=== PATIENT | male | born 1960 | race Caucasian/White ===

== ENCOUNTER 2022-07-04 16:46 | Inpatient (IN) | payer MEDICARE, SELFPAY ==
[2022-07-04] VITALS (21 sets, daily range): BP systolic 108–139; BP diastolic 59–76; PULSE 84–99; RESP 16–27; TEMP 36.3–36.7; O2SAT 95–99; BMI 26.8
--- NOTE | ~2022-07-04 | CT_ITS ---
EXAMINATION: CT diagnostic chest wo con DATE: 07/05/2022 08:30 INDICATION: Pleural effusion, history of lung cancer TECHNIQUE: Computed tomography (CT) of the chest was performed without intravenous contrast. The dose -length product (DLP) was 319.38 mGy-cm. Automated exposure control and iterative reconstruction tech nique were employed. COMPARISON: None FINDINGS: The right upper lobe bronchus is obstructed with resulting right upper lobe collapse. There is a moderate size loculated right pleural effusion. There are diffuse airspace opacities throughout the right middle and lower lobes. There is a small left pleural effusion. No pneumothorax is identif ied. There are small nodules and patchy airspace opacities of the left lower lobe, some of which demo nstrate central cavitation. The heart size is normal. No definite thoracic lymphadenopathy is identif ied however evaluation is limited by the absence of intravenous contrast. There are partially imaged changes of anterior fusion in the cervical spine and posterior fusion in the lumbar spine. Stones are present in the nondistended gallbladder. There is a nonobstructing stone of the right kidney. IMPRESSION: 1. Obstructed right upper lobe bronchus with right upper lobe collapse of unclear etiology, mass vers us mucous plugging. 2. Moderate-sized loculated right pleural effusion. 3. Diffuse airspace opacities throughout the right middle and lower lobes and patchy nodular and airs pace opacities in the left lower lobe, likely infection. 3. Cholelithiasis without evidence of cholecystitis. Reviewed, dictated and finalized at location B. L WORKER IMPRESSION: 1. Obstructed right upper lobe bronchus with right upper lobe collapse of uncle ar etiology, mass versus mucous plugging. 2. Moderate-sized loculated right pleural effusion. 3. Diffuse airspace opacities throughout the right middle and lower lobes and p atchy nodular and airspace opacities in the left lower lobe, likely infection. 3. Cholelithiasis without evidence of cholecystitis.
--- NOTE | ~2022-07-04 | US_ITS ---
EXAMINATION: US thoracentesis DATE: 07/05/2022 14:42 INDICATION: pleural effusion TECHNIQUE: The procedure and its risks, benefits, and alternatives were discussed with the patient. P otential risks discussed included bleeding, infection, and pneumothorax. The patient understood the r isks and agreed to proceed. The skin was prepped and draped in sterile fashion. 1% lidocaine was used for local anesthesia. Under ultrasound guidance, a 5 Fr catheter with trochar was advanced into the right pleural effusion. Fluid was aspirated. The catheter was removed, and a dressing was applied. Th ere were no immediate complications. FINDINGS: Ultrasound images demonstrate a right pleural effusion and the catheter within the fluid. IMPRESSION: 1. Successful ultrasound-guided thoracentesis yielding 900 mL of turbid, almazan fluid. Reviewed, dictated and finalized at location A. RINE OPERATOR IMPRESSION: 1. Successful ultrasound-guided thoracentesis yielding 900 mL of turbid, almazan f luid.
--- NOTE | ~2022-07-04 | XR_ITS ---
EXAMINATION: XR chest 1V portable DATE: 07/04/2022 17:39 INDICATION: Shortness of breath and cough and prior lung cancer. TECHNIQUE: frontal view of the chest was obtained. COMPARISON: None FINDINGS: There some volume loss in the right hemithorax with rightward deviation of the heart and trachea. Pat deysi airspace opacities in the right midlung zone with more dense opacities in the right lower lung zo ne and overlying the apex suggesting a small to moderate-sized right pleural effusion with associated atelectasis. The more patchy airspace opacities could represent pneumonia or less likely asymmetric pulmonary edema. Left lung remains clear with no airspace opacities, pulmonary edema or pleural effus ion. No pneumothorax. The heart size is likely normal although portions of the right heart border obs cured. Partially visualized plate and screw fixation for lower cervical anterior spinal fusion. IMPRESSION: 1. Opacities throughout the right lung consistent with small to moderate-sized right pleural effusion and associated atelectasis. Underlying recurrent malignancy cannot be excluded. 2. Patchy airspace opacities in the right midlung zone which could represent pneumonia or less likely asymmetric pulmonary edema. Reviewed, dictated and finalized at location A. N RESOURCES TRAINEE IMPRESSION: 1. Opacities throughout the right lung consistent with small to moderate-sized right pleural effusion and associated atelectasis. Underlying recurrent maligna ncy cannot be excluded. 2. Patchy airspace opacities in the right midlung zone which could represent pn eumonia or less likely asymmetric pulmonary edema.
--- NOTE | ~2022-07-04 | XR_ITS ---
EXAMINATION: [id number]_[id number]_CR DATE: 07/05/2022 14:36 INDICATION: Right pleural effusion status post thoracentesis. TECHNIQUE: Frontal and lateral views of the chest were obtained. COMPARISON: Chest single view 07/04/2022, chest CT 07/05/2022 FINDINGS: There is a small loculated right pleural effusion. There is a small left pleural effusion. There is a mass in right lung apex. There are airspace opacities in all right lung zones with a perih ilar predominance. No pneumothorax. There is rightward shift of mediastinum. The heart size is normal . There are changes of anterior fusion procedure in cervical spine. There are changes of posterior fu justyn procedure in lumbar spine. IMPRESSION: 1. Small loculated right pleural effusion with improvement status post thoracentesis. 2. Diffuse right lung disease with right lung volume loss, likely a combination of malignancy, pneumo bonita, and atelectasis. 3. Small left pleural effusion. Reviewed, dictated and finalized at location A. OR LINUX ADMINISTRATOR IMPRESSION: 1. Small loculated right pleural effusion with improvement status post thoracen tesis. 2. Diffuse right lung disease with right lung volume loss, likely a combination of malignancy, pneumonia, and atelectasis. 3. Small left pleural effusion.
--- NOTE | 2022-07-04 17:19 | ECG_ITS ---
Measurements Intervals [place] Rate: 91 P: 45 NE: 175 QRS: 25 QRSD: 104 T: 54 QT: 375 QTc: 462 Interpretive Statements SINUS RHYTHM NONSPECIFIC ST SEGMENT ABNORMALITY ABNORMAL ECG NO PREVIOUS ECG AVAILABLE FOR COMPARISON Electronically Signed On 07-05-2022 13:03:28 AVIONICS TEST TECHNICIAN by Jhon White M.D.
[2022-07-04] MEDS: methylPREDNISolone SOD SUCC 125 MG VIAL IV PUSH (17:32)
[2022-07-04 17:33] LABS: Basophils Absolute Auto 0.1 K/mm3 (0.0-0.1); Basophils Percent Auto 0.8 % (0.2-1.2); Eosinophils Absolute Auto 0.1 K/mm3 (0-0.3); Eosinophils Percent Auto 0.7 % (0-4.4); Hematocrit 35.2 % (42.0-52.0); Hemoglobin 11.6 g/dL (14.0-18.0); Immature Granulocyte Absolute 0.01 K/mm3 (0.00-0.031); Immature Granulocyte Percent A 0.1 % (0-0.5); Lymphocytes Absolute Auto 0.15 K/mm3 (0.9-3.2); Lymphocytes Percent Auto 1.6 % (18.3-44.2); Mean Corpuscular Hemoglobin 24.5 pg (26-34); Mean Corpuscular Volume 74.3 fl (80-100); Mean Platelet Volume 9.7 fl (7.4-10.4); Monocytes Absolute Auto 0.7 K/mm3 (0.1-0.6); Neutrophils Absolute Auto 8.3 K/mm3 (1.3-6.7); Neutrophils Percent Auto 89.8 % (45.5-73.1); Platelet Count Result 222 k/mm3 (150-375); Red Blood Count 4.74 M/mm3 (4.6-6.20); Red Cell Distribution Width 15.5 % (11.5-14.5); White Blood Count 9.2 K/mm3 (4.5-10.0)
[2022-07-04] MEDS: ALBUTEROL SULFATE NEB 2.5 MG/3 ML INH INHALATION ×2 (17:37→20:55)
[2022-07-04] MEDS: IPRATROPIUM BR 0.02% INH SOLN 0.5 MG/2.5 ML VIAL INHALATION ×2 (17:37→20:55)
[2022-07-04 17:46] LABS: Alanine Aminotransferase 70 U/L (6-50); Albumin Level 3.6 g/dL (3.5-5.1); Alkaline Phosphatase 70 U/L (38-126); Anion Gap 14 mmol/L (8-16); Aspartate Amino Transferase 114 U/L (17-59); Bilirubin,Total 1.1 mg/dL (0.2-1.3); Blood Urea Nitrogen 56 mg/dL (9-20); Calcium 7.5 mg/dL (8.4-10.2); Carbon Dioxide 22 mmol/L (22-30); Chloride 89 mmol/L (98-107); Estimated CRCL calculation 34 ml/min; Estimated Glomerular Filt Rate 32; Glucose 52 mg/dL (65-110); Potassium 3.2 mmol/L (3.4-5.0); Sodium 125 mmol/L (137-145)
--- NOTE | 2022-07-04 17:48 | ED.SOB ---
HPI - SOB/Dyspnea General Chief Complaint: Shortness of Breath/Dyspnea Stated Complaint: Shortness of breath, COVID exposure Time Seen by Provider: 07/04/22 17:04 Source: RN notes reviewed History of Present Illness HPI Narrative: Patient presents emergency department from home for shortness of breath. Patient states he been feeling short of breath for the past 4 days but it worsened today. He states that has been associate with the cough has been nonproductive she states shortness of breath is worse with ambulation. He states that his was just diagnosed with COVID today he denies having fevers or chills denies any chest pain abdominal pain nausea vomiting diarrhea. States he has a history of lung cancer that was treated at [facility] with radiation and chemotherapy but is in remission and no longer receiving any treatments Related Data Allergies Allergy/AdvReac Type Severity Reaction Status Date / Time No Known Allergies Allergy Verified 07/04/22 17:10 Review of Systems Review of Systems: Gen.: Denies fevers or chills ENT: Denies congestion Respiratory: See HPI CV: Denies chest pain or palpitations GI: Denies abdominal pain nausea, emesis or diarrhea Musculoskeletal: Denies back pain or muscle pain Neuro: Denies numbness, tingling, weakness or focal weakness Skin: Denies rash Except as documented, all other systems reviewed and negative [facility] Past Medical History Medical History (Updated 07/04/22 @ 19:47 by Nestor Damico DO) Lung cancer Social History Social History (Updated 07/04/22 @ 17:49 by Nestor Damico DO) Smoking status: Former smoker Exam Narrative: APPEARANCE: Moderate respiratory distress, nontoxic, resting in bed EYES: EOMI HEENT: Normocephalic, atraumatic, OMM RESPIRATORY: Moderate respiratory stress,, sitting upright speaking in short sentences decreased breath sounds throughout the bilateral lung hay worse on the right than the left CARDIOVASCULAR: Regular rate and rhythm without murmurs rubs or gallops. ABDOMINAL: Soft, nontender, nondistended, no rebound or guarding MUSCULOSKELETAl: Moves all extremities. No clubbing, cyanosis or edema. NEURO: Awake and alert. Following commands, speech normal, no focal deficits SKIN:: Warm, dry. No rashes lesions or abrasions PSYCHIATRIC: Normal affect/mood, Course Course Emergency Course: Further discussions with the patient's shows that his treatment for lung cancer was on the right side back in 2015 at [facility] he has been in remission since that time and only follows with his PCP Dr. Casillas. He states he does not have a known history of renal insufficiency Called and discussed with Dr. velasquez for radiology chest x-ray discussed possible CT scan tonight he recommends the patient have a thoracentesis to decrease size of pleural effusion with CT following tomorrow Discussed with [facility] for Dr. Dinero for hospitalist service agrees with admission with patient starting Rocephin and Zithromax Discussed with patient and family results of workup and diagnosis. Discussed need for admission. Patient and family understand and agree to current treatment plan patient states he did start a Z-Kurt 2 days ago Discussed with pharmacist Lino patient's current Z-Kurt he took a Z-Kurt dose this morning per pharmacy the patient can have IV azithromycin this evening Vital Signs Vital signs: Vital Signs Temperature 98.1 F 07/04/22 16:57 Pulse Rate 95 07/04/22 16:57 Respiratory Rate 26 H 07/04/22 16:57 Blood Pressure 121/76 07/04/22 16:57 Pulse Oximetry 96 07/04/22 16:57 Oxygen Delivery Nasal Cannula 07/04/22 16:57 Oxygen Flow Rate 4 07/04/22 16:57 Temperature 98.1 F 07/04/22 16:57 Pulse Rate 89 07/04/22 18:15 Respiratory Rate 16 07/04/22 18:15 Blood Pressure 139/76 07/04/22 18:06 Pulse Oximetry 96 07/04/22 18:15 Oxygen Delivery Nasal Cannula 07/04/22 16:57 Oxygen Flow Rate 4 07/04/22 16:57
[2022-07-04 18:02] LABS: Glucose Point of Care 56 mg/dl (65-105)
[2022-07-04] MEDS: SODIUM CHLORIDE 0.9% IV 1,000 ML 999 ML IV CONT (18:03)
[2022-07-04 18:14] LABS: Lactic Acid Reflex 2.1 mmol/L (0.7-2.0)
[2022-07-04] MEDS: POTASSIUM CHLORIDE 20 MEQ TABLET PO (18:21)
[2022-07-04 18:31] LABS: INR 1.2
[2022-07-04 18:32] LABS: Platelet Estimate Adequate (Adequate)
[2022-07-04 18:32] LABS: Partial Thromboplastin Time 32.4 SECONDS (22.3-36.8)
[2022-07-04 18:33] LABS: Burr Cells 2+ (NORMAL); Ovalocytes 1+ (NORMAL); Schistocytes None Seen (NORMAL)
[2022-07-04 18:39] LABS: Magnesium 1.2 mg/dL (1.6-2.3)
[2022-07-04 18:40] LABS: Influenza A QL RT-PCR Negative (Negative); Influenza B QL RT-PCR Negative (Negative); RSV RNA, RT-PCR Negative (Negative); SARS-CoV-2 RNA PCR Negative
[2022-07-04] MEDS: MAGNESIUM SULF 2 GM/WATER 50ML 2 GM/50 ML BAG IVPB (19:04)
[2022-07-04 19:35] LABS: Glucose Point of Care 171 mg/dl (65-105)
--- NOTE | 2022-07-04 20:56 | PM.IMHP ---
H&P: HPI History of Present Illness Date/Time: 07/04/22 20:56 Chief Complaint: Shortness of breath Narrative: This is a 61-year-old male with past medical history significant for hypertension, dyslipidemia, COPD/emphysema, lung CA, type 2 diabetes mellitus. Patient presents to the emergency room due to shortness of breath for the last 3-4 days worsening cough nonproductive of sputum, initially patient thought that he had COVID back tested negative for COVID tested positive for COVID, patient has been having low stamina, poor appetite, chills, fevers, night sweats, generalized malaise. Preliminary workup was significant for sodium of 125 magnesium 1.2 chloride 89 creatinine of 2.1 BUN 56 a chest x-ray was reported as: FINDINGS: There some volume loss in the right hemithorax with rightward deviation of the heart and trachea. Patchy airspace opacities in the right midlung zone with more dense opacities in the right lower lung zone and overlying the apex suggesting a small to moderate-sized right pleural effusion with associated atelectasis. The more patchy airspace opacities could represent pneumonia or less likely asymmetric pulmonary edema. Left lung remains clear with no airspace opacities, pulmonary edema or pleural effusion. No pneumothorax. The heart size is likely normal although portions of the right heart border obscured. Partially visualized plate and screw fixation for lower cervical anterior spinal fusion. IMPRESSION: 1. Opacities throughout the right lung consistent with small to moderate-sized right pleural effusion and associated atelectasis. Underlying recurrent malignancy cannot be excluded. 2. Patchy airspace opacities in the right midlung zone which could represent pneumonia or less likely asymmetric pulmonary edema. Review of Systems Review of Systems: Shortness of breath, chills, night sweats, poor appetite, decreased stamina, generalized malaise. Constitutional: Constitutional: Reports chills, Reports fatigue, Reports fever(s), Reports lethargy, Reports malaise, Reports night sweats, Reports poor appetite and Reports weakness Eyes: Eyes: Denies change in vision ENT: Denies dysphagia and Denies odynophagia Cardiovascular: Cardiovascular: Denies chest pain, Denies leg edema, Denies lightheadedness and Denies palpitations Respiratory: Respiratory: Denies change in phlegm color, Reports cough, Denies hemoptysis, Denies excessive phlegm production, Denies pain on inspiration, Reports dyspnea and Reports dyspnea on exertion Gastrointestinal: Gastrointestinal: Denies abdominal pain, Denies dyspepsia, Denies heartburn, Denies diarrhea, Denies nausea and Denies vomiting Genitourinary: Genitourinary: Denies dysuria Musculoskeletal: Musculoskeletal: Denies back pain, Reports myalgias, Denies joint swelling and Reports muscle weakness Integumentary/Breasts: Skin/Breast: Denies rash Neurologic: Denies vertigo, Denies dizziness, Denies focal weakness and Denies Sensory deficit (Neuro) Psychiatric: Psychiatric: Reports no additional psychiatric complaints and Reports as per HPI Endocrine: Endocrine: Denies cold intolerance, Denies flushing, Denies heat intolerance, Denies polyphagia, Denies polydipsia and Denies palpitations Hematologic/Lymphatic: Hematologic/Lymphatic: Reports no additional hematologic/lymphatic complaints and Reports as per HPI Allergic/Immunologic: Allergic/Immunologic: Reports no additional allergic/immunologic complaints and Reports as per HPI PMFSH Past Medical History Medical History (Updated 07/04/22 @ 19:47 by Nestor Damico DO) Lung cancer Family History Family History (Updated 07/04/22 @ 22:13 by Mary Rivera RN) Mother Diabetes mellitus Sibling ETOH abuse Social History Social History (Updated 07/04/22 @ 17:49 by Nestor Damico DO) Smoking packs per day: 1.5 Smoking cigarettes per day: 30.0 Years smoked: 25 Smoking pack-years: 37.50 Smoking status: Form
[2022-07-04 21:01] LABS: Reflex Lactic Acid Yes or No Add Lactic
--- NOTE | 2022-07-04 21:56 | ADMGEN ---
This patient, Mraco Antonio Payne, was admitted to IMU Room 213- [id number]. Patient/family oriented to hospital policies and general routines including ID bracelet, bed and alarms, visiting hours, pain management, procedures, bathroom and other care routines, personal items, smoking policy, room service/diet, and visiting hours. Information on how to activate the Rapid Response Team has been discussed. Patient/Family are encouraged to report perceived risks to care and to ask questions if they do not understand what they are told or what they should do.
[2022-07-04 22:10] LABS: Glucose Point of Care 181 mg/dl (65-105)
[2022-07-04] MEDS: SODIUM CHLORIDE 0.9% IV 1,000 ML 80 ML IV CONT (22:16)
--- NOTE | 2022-07-04 22:20 | ADMGEN ---
This patient, Marco Antonio Payne, was admitted to IMU Room 213-01 on 07/04/2022 at 2155. Patient/family oriented to hospital policies and general routines including ID bracelet, bed and alarms, visiting hours, pain management, procedures, bathroom and other care routines, personal items, smoking policy, room service/diet, and visiting hours. Information on how to activate the Rapid Response Team has been discussed. Patient/Family are encouraged to report perceived risks to care and to ask questions if they do not understand what they are told or what they should do.
[2022-07-04 22:40] LABS: Lactic Acid 2.2 mmol/L (0.7-2.0)
[2022-07-04 23:45] LABS: Appearance Urine Slightly Cloudy (Clear); Bilirubin Urine Negative (Negative); Blood Urine 2+ (Negative); Color Urine Yellow (Yellow); Glucose Urine UA Negative (Negative); Ketones Urine Negative (Negative); Leukocyte Esterase Ur Negative LEU/UL (Negative); Nitrate Urine Negative (Negative); Protein Urine 2+ mg/dL (Negative); Specific Grav Ur 1.025 (1.001-1.035); Urobilinogen Urine 0.2 mg/dL (<2.0); pH Urine 5.5 (5.0-9.0)
[2022-07-05] VITALS (29 sets, daily range): BP systolic 109–148; BP diastolic 58–79; PULSE 77–104; RESP 16–20; TEMP 35.6–36.4; O2SAT 92–97
[2022-07-05 00:02] LABS: Mucus Urine Rare /lpf
[2022-07-05 00:28] LABS: Add Urine Microscopic? YES
[2022-07-05] MEDS: MELATONIN 5 MG TABLET PO ×2 (01:27→22:03)
[2022-07-05] MEDS: IPRATROPIUM BR 0.02% INH SOLN 0.5 MG/2.5 ML VIAL INHALATION ×4 (02:25→20:40)
[2022-07-05] MEDS: ALBUTEROL SULFATE NEB 2.5 MG/3 ML INH INHALATION ×4 (02:25→20:40)
[2022-07-05 04:51] LABS: Hematocrit 32.4 % (42.0-52.0); Hemoglobin 10.9 g/dL (14.0-18.0); Mean Corpuscular HGB Conc 33.6 g/dl (32-36); Mean Corpuscular Hemoglobin 24.8 pg (26-34); Mean Corpuscular Volume 73.8 fl (80-100); Mean Platelet Volume 9.9 fl (7.4-10.4); Platelet Count Result 189 k/mm3 (150-375); Red Blood Count 4.39 M/mm3 (4.6-6.20); Red Cell Distribution Width 15.4 % (11.5-14.5); White Blood Count 9.8 K/mm3 (4.5-10.0)
[2022-07-05 05:05] LABS: Alanine Aminotransferase 154 U/L (6-50); Alkaline Phosphatase 65 U/L (38-126); Anion Gap 9 mmol/L (8-16); Aspartate Amino Transferase 155 U/L (17-59); Bilirubin,Total 0.8 mg/dL (0.2-1.3); Blood Urea Nitrogen 55 mg/dL (9-20); Carbon Dioxide 22 mmol/L (22-30); Chloride 91 mmol/L (98-107); Estimated CRCL calculation 40 ml/min; Estimated Glomerular Filt Rate 38; Glucose 120 mg/dL (65-110); Potassium 3.1 mmol/L (3.4-5.0); Sodium 122 mmol/L (137-145)
[2022-07-05 05:52] LABS: Band Neutrophils Percent 42 % (0-6); Burr Cells 2+ (NORMAL); Crenated RBC 3+ (NORMAL); Eosinophils Absolute Manual 0.19 K/mm3 (0.02-0.5); Eosinophils Percent Manual 2 % (0-4); Lymphocytes Absolute Manual 0.29 K/mm3 (1.1-4.5); Macrocytosis 1+ (NORMAL); Monocytes Absolute Manual 0.58 K/mm3 (0.1-0.90); Monocytes Percent Manual 6 % (3-9); Myelocytes Percent 1 %; Neutrophils Absolute Manual 8.62 K/mm3 (1.3-6.7); Neutrophils Percent Manual 46 % (46-73); Platelet Estimate Adequate (Adequate); Schistocytes 1+ (NORMAL); Smudge Cells PRESENT; Total Cells Counted 100
[2022-07-05] MEDS: ASPIRIN 81 MG CHEWABLE TABLET PO (09:04)
[2022-07-05] MEDS: amLODIPine BESYLATE 5 MG TABLET PO ×2 (09:05→17:19)
[2022-07-05] MEDS: carvediloL 25 MG TABLET PO ×2 (09:05→22:02)
[2022-07-05] MEDS: guaiFENesin 12 HR 600 MG TABCR 1200 MG PO ×2 (09:05→22:03)
[2022-07-05] MEDS: cloNIDine HCL 0.2 MG TABLET PO ×2 (09:05→17:19)
[2022-07-05] MEDS: ATORVASTATIN 40 MG TABLET PO (09:05)
[2022-07-05] MEDS: OPTI-GEN TAB 1 TABLET PO (09:06)
[2022-07-05] MEDS: PANTOPRAZOLE 40 MG TABLET PO (09:06)
[2022-07-05] MEDS: FLUTICASONE/UMECLIDIN/VILANTER 100-62.5-25 MCG ELLIPTA 1 PUFF INHALATION (09:55)
--- NOTE | 2022-07-05 10:34 | PM.IMPN ---
Progress Note: A&P Assessment and Plan (1) Acute respiratory failure with hypoxia: Code(s): J96.01 - Acute respiratory failure with hypoxia Status: Acute Assessment and Plan: Likely secondary to postobstructive pneumonia versus empyema Thoracentesis performed today, organisms found in the Gram stain Empyema noted Transfer pending to [facility] versus U (2) Community acquired pneumonia: Code(s): J18.9 - Pneumonia, unspecified organism Status: Acute Assessment and Plan: Will broaden antibiotics to vancomycin, Zosyn and in light of Gram stain findings from the thoracentesis today (3) Pleural effusion on right: Code(s): J90 - Pleural effusion, not elsewhere classified Status: Acute Assessment and Plan: Follow-up pleural fluid analysis from thoracentesis today, suspect empyema, see above (4) Lung cancer: Code(s): C34.90 - Malignant neoplasm of unspecified part of unspecified bronchus or lung Status: Acute Assessment and Plan: Status post radiation and chemotherapy according to history (5) Acute hyponatremia: Code(s): E87.1 - Hypo-osmolality and hyponatremia Status: Acute Assessment and Plan: Worsening, consider consult to nephrology d/c IVF and monitor Plan DVT prophylaxis with lovenox GI prophylaxis not indicated Code status full code Subjective Date/time seen: 07/05/22 10:34 Interval history: No overnight events noted. No chest pain. No nausea, vomiting or diarrhea. No fevers or chills. States his shortness of breath is much improved. Review of Systems Review of Systems: 12 point review of systems was assessed and was negative except as noted in the HPI Exam Narrative: General: No acute distress, alert and oriented per baseline, stable on 3 L nasal cannula HEENT: Atraumatic, normocephalic, mucous membranes moist CV: Regular rate and rhythm, S1, S2 Lungs: No air movement noted on right upper and middle lobes, scattered rhonchi on left lower lobe, clear breath sounds left upper lobe Abdomen: Soft, nontender, nondistended Extremities: Normal to inspection Skin: No rashes noted, no lesions or wounds seen Psych: Euthymic, normal affect Objective Data Vital Signs Vital Signs: Vital Signs - 24 hr 07/04/22 16:57 07/04/22 17:20 07/04/22 18:04 Temperature 98.1 F Pulse Rate 95 99 88 Respiratory Rate 26 H 23 H Blood Pressure 121/76 Pulse Oximetry 96 Oxygen Delivery Nasal Cannula Oxygen Flow Rate 4 07/04/22 17:44 07/04/22 17:55 07/04/22 18:06 Temperature Pulse Rate 94 94 95 Respiratory Rate 21 H 21 H 23 H Blood Pressure 108/64 139/76 Pulse Oximetry 95 95 95 Oxygen Delivery Oxygen Flow Rate 07/04/22 18:15 07/04/22 20:50 07/04/22 20:50 Temperature Pulse Rate 89 91 91 Respiratory Rate 16 24 H Blood Pressure Pulse Oximetry 96 95 Oxygen Delivery Nasal Cannula Oxygen Flow Rate 4 07/04/22 20:58 07/04/22 18:30 07/04/22 18:45 Temperature Pulse Rate 90 95 91 Respiratory Rate 21 H 22 H 18 Blood Pressure Pulse Oximetry 98 98 Oxygen Delivery Oxygen Flow Rate 07/04/22 19:08 07/04/22 19:16 07/04/22 19:30 Temperature Pulse Rate 94 92 90 Respiratory Rate 26 H 21 H 18 Blood Pressure Pulse Oximetry 98 99 96 Oxygen Delivery Oxygen Flow Rate 07/04/22 19:46 07/04/22 20:02 07/04/22 20:24 Temperature Pulse Rate 95 93 87 Respiratory Rate 23 H 23 H 17 Blood Pressure Pulse Oximetry 96 95 Oxygen Delivery Oxygen Flow Rate 07/04/22 20:31 07/04/22 20:52 07/04/22 21:05 Temperature Pulse Rate 84 92 94 Respiratory Rate 17 27 H 20 Blood Pressure 109/59 L Pulse Oximetry 96 95 97 Oxygen Delivery Oxygen Flow Rate 07/04/22 21:55 07/05/22 00:00 07/05/22 00:00 Temperature 97.3 F L Pulse Rate 97 89 Respiratory Rate 20 Blood Pressure 130/72 109/66 Pulse Oximetry 96 Oxygen Delivery Oxygen Flow
[2022-07-05] MEDS: SODIUM CHLORIDE 0.9% IV 1,000 ML 80 ML IV CONT (11:55)
--- NOTE | 2022-07-05 15:18 | PC.NURSE ---
Daughter, Libia, called for an update. She was updated on patient current condition and planfor today thus far. All questions answered.
[2022-07-05 17:08] LABS: Pleural fluid source Pleural fluid
[2022-07-05 17:14] LABS: Appearance Pleural Fluid Cloudy (Clear); Color Pleural Fluid Yellow (Colorless)
[2022-07-05 17:15] LABS: Lymphocytes Pleural Fluid 90 %; Monocytes Pleural Fluid 6 %; Neutrophils Pleural Fluid 4 % (0-25)
[2022-07-05] MEDS: POTASSIUM CHLORIDE 20 MEQ TABLET 40 MEQ PO (17:19)
[2022-07-06] VITALS (17 sets, daily range): BP systolic 139–165; BP diastolic 73–88; PULSE 62–110; RESP 18–22; TEMP 36.3–36.7; O2SAT 94–98
[2022-07-06 04:59] LABS: Eosinophils Percent Auto 0.1 % (0-4.4); Hematocrit 34.9 % (42.0-52.0); Immature Granulocyte Percent A 0.5 % (0-0.5); Lymphocytes Percent Auto 2.1 % (18.3-44.2); Mean Corpuscular HGB Conc 34.4 g/dl (32-36); Mean Corpuscular Hemoglobin 25.3 pg (26-34); Mean Corpuscular Volume 73.6 fl (80-100); Mean Platelet Volume 9.6 fl (7.4-10.4); Monocytes Absolute Auto 1.3 K/mm3 (0.1-0.6); Monocytes Percent Auto 6.7 % (2.6-8.5); Neutrophils Absolute Auto 17.5 K/mm3 (1.3-6.7); Neutrophils Percent Auto 90.6 % (45.5-73.1); Platelet Count Result 209 k/mm3 (150-375); Red Blood Count 4.74 M/mm3 (4.6-6.20); Red Cell Distribution Width 15.6 % (11.5-14.5); White Blood Count 19.3 K/mm3 (4.5-10.0)
[2022-07-06 05:48] LABS: Alanine Aminotransferase 130 U/L (6-50); Albumin Level 3.1 g/dL (3.5-5.1); Alkaline Phosphatase 84 U/L (38-126); Anion Gap 7 mmol/L (8-16); Aspartate Amino Transferase 65 U/L (17-59); Bilirubin,Total 0.8 mg/dL (0.2-1.3); Blood Urea Nitrogen 42 mg/dL (9-20); Calcium 7.5 mg/dL (8.4-10.2); Carbon Dioxide 24 mmol/L (22-30); Chloride 93 mmol/L (98-107); Estimated CRCL calculation 54 ml/min; Estimated Glomerular Filt Rate 56; Glucose 39 mg/dL (65-110); Magnesium 2.5 mg/dL (1.6-2.3); Sodium 124 mmol/L (137-145)
[2022-07-06 05:53] LABS: Glucose Point of Care 37 mg/dl (65-105)
[2022-07-06] MEDS: DEXTROSE 50% 25 GM/50 ML SYRINGE (06:00)
[2022-07-06 06:12] LABS: Glucose Point of Care 137 mg/dl (65-105)
[2022-07-06 06:49] LABS: Crenated RBC 3+ (NORMAL); Microcytosis 1+ (NORMAL); Platelet Estimate Adequate (Adequate); Schistocytes None Seen (NORMAL)
--- NOTE | 2022-07-06 08:48 | PM.IMPN ---
Progress Note: A&P Assessment and Plan (1) Acute respiratory failure with hypoxia: Code(s): J96.01 - Acute respiratory failure with hypoxia Status: Acute Assessment and Plan: Likely secondary to postobstructive pneumonia versus empyema Thoracentesis performed today, organisms found in the Gram stain Empyema noted Transfer pending to [facility], accepted by Dr. Waldron (2) Community acquired pneumonia: Code(s): J18.9 - Pneumonia, unspecified organism Status: Acute Assessment and Plan: Continue broad-spectrum antibiotics with vancomycin, Zosyn and in light of Gram stain findings, follow final results Leukocytosis worsened despite broadening of antibiotics, monitor (3) Pleural effusion on right: Code(s): J90 - Pleural effusion, not elsewhere classified Status: Acute Assessment and Plan: Follow-up pleural fluid analysis from thoracentesis, most likely empyema, see above (4) Lung cancer: Code(s): C34.90 - Malignant neoplasm of unspecified part of unspecified bronchus or lung Status: Acute Assessment and Plan: Status post radiation and chemotherapy according to history (5) Acute hyponatremia: Code(s): E87.1 - Hypo-osmolality and hyponatremia Status: Acute Assessment and Plan: Much improved off IV fluids, continue to monitor Plan DVT prophylaxis with lovenox GI prophylaxis not indicated Code status full code Subjective Date/time seen: 07/06/22 08:48 Interval history: No overnight events noted. No chest pain. No nausea, vomiting or diarrhea. No fevers or chills. Still with some short of breath, much better than yesterday. Review of Systems Review of Systems: 12 point review of systems was assessed and was negative except as noted in the HPI Exam Narrative: General: No acute distress, alert and oriented per baseline, stable on 3 L nasal cannula HEENT: Atraumatic, normocephalic, mucous membranes moist CV: Regular rate and rhythm, S1, S2 Lungs: No air movement noted on right upper and middle lobes, some crackles noted and right lower lobe, clear breath sounds left upper lobe, diminished breath sounds left lower lobe Abdomen: Soft, nontender, nondistended Extremities: Normal to inspection Skin: No rashes noted, no lesions or wounds seen Psych: Euthymic, normal affect Objective Data Vital Signs Vital Signs: Vital Signs - 24 hr 07/05/22 09:05 07/05/22 09:34 07/05/22 09:34 Temperature Pulse Rate 96 87 87 Respiratory Rate 20 Blood Pressure Pulse Oximetry 97 Oxygen Delivery Nasal Cannula Oxygen Flow Rate 3 07/05/22 12:02 07/05/22 10:00 07/05/22 12:00 Temperature 96.4 F L Pulse Rate 88 84 84 Respiratory Rate Blood Pressure 119/69 Pulse Oximetry 95 Oxygen Delivery Oxygen Flow Rate 07/05/22 12:00 07/05/22 14:00 07/05/22 16:13 Temperature 96.0 F L Pulse Rate 91 87 Respiratory Rate Blood Pressure 125/63 Pulse Oximetry 95 92 Oxygen Delivery Nasal Cannula Oxygen Flow Rate 3 07/05/22 09:51 07/05/22 14:49 07/05/22 15:09 Temperature Pulse Rate 85 91 93 Respiratory Rate 18 18 20 Blood Pressure Pulse Oximetry Oxygen Delivery Oxygen Flow Rate 07/05/22 16:00 07/05/22 16:00 07/05/22 18:00 Temperature Pulse Rate 79 80 Respiratory Rate Blood Pressure Pulse Oximetry 92 Oxygen Delivery Nasal Cannula Oxygen Flow Rate 2 07/05/22 20:24 07/05/22 20:40 07/05/22 21:13 Temperature 97.6 F Pulse Rate 87 93 93 Respiratory Rate 16 18 Blood Pressure 121/58 L Pulse Oximetry 92 95 Oxygen Delivery Nasal Cannula Oxygen Flow Rate 1 07/05/22 20:55 07/05/22 22:02 07/05/22 23:35 Temperature 97.5 F L Pulse Rate 87 86 77 Respiratory Rate 18 20 Blood Pressure 110/67 Pulse Oximetry 95 Oxygen Delivery Oxygen Flow Rate 07/05/22 23:37 07/05/22 20:00 07/06/22 00:00 Temperature Pulse Rate Respirat
[2022-07-06] MEDS: ALBUTEROL SULFATE NEB 2.5 MG/3 ML INH INHALATION (09:06)
[2022-07-06] MEDS: IPRATROPIUM BR 0.02% INH SOLN 0.5 MG/2.5 ML VIAL INHALATION ×2 (09:06→23:40)
[2022-07-06] MEDS: FLUTICASONE/UMECLIDIN/VILANTER 100-62.5-25 MCG ELLIPTA 1 PUFF INHALATION (09:07)
[2022-07-06] MEDS: amLODIPine BESYLATE 5 MG TABLET PO ×2 (09:18→18:38)
[2022-07-06] MEDS: ASPIRIN 81 MG CHEWABLE TABLET PO (09:18)
[2022-07-06] MEDS: carvediloL 25 MG TABLET PO ×2 (09:18→21:01)
[2022-07-06] MEDS: ATORVASTATIN 40 MG TABLET PO (09:18)
[2022-07-06] MEDS: guaiFENesin 12 HR 600 MG TABCR 1200 MG PO ×2 (09:19→21:00)
[2022-07-06] MEDS: PANTOPRAZOLE 40 MG TABLET PO (09:19)
[2022-07-06] MEDS: OPTI-GEN TAB 1 TABLET PO (09:19)
[2022-07-06] MEDS: cloNIDine HCL 0.2 MG TABLET PO ×2 (09:19→18:38)
[2022-07-06] MEDS: ENOXAPARIN 40 MG/0.4 ML SYRINGE SUB-Q (09:19)
[2022-07-06 11:36] LABS: Glucose Point of Care 124 mg/dl (65-105)
[2022-07-06] MEDS: POTASSIUM CHLORIDE 20 MEQ TABLET 40 MEQ PO (18:38)
[2022-07-06 19:19] LABS: Glucose Point of Care 49 mg/dl (65-105)
[2022-07-06] MEDS: GLUCOSE ORAL GEL 15 GM OF GLUCSE IN 37.5 GM TUBE (19:40)
[2022-07-06 20:11] LABS: Glucose Point of Care 74 mg/dl (65-105)
[2022-07-06 20:23] LABS: Glucose Point of Care 84 mg/dl (65-105)
[2022-07-06] MEDS: MELATONIN 5 MG TABLET PO (21:00)
[2022-07-06 23:28] LABS: Glucose Point of Care 62 mg/dl (65-105)
[2022-07-07] VITALS (20 sets, daily range): BP systolic 125–158; BP diastolic 61–81; PULSE 79–106; RESP 16–22; TEMP 36.3–36.7; O2SAT 94–98
[2022-07-07 00:21] LABS: Glucose Point of Care 133 mg/dl (65-105)
[2022-07-07 04:27] LABS: Basophils Percent Auto 0.2 % (0.2-1.2); Eosinophils Percent Auto 0.1 % (0-4.4); Hematocrit 32.7 % (42.0-52.0); Hemoglobin 11.1 g/dL (14.0-18.0); Immature Granulocyte Absolute 0.18 K/mm3 (0.00-0.031); Immature Granulocyte Percent A 1.2 % (0-0.5); Lymphocytes Absolute Auto 0.48 K/mm3 (0.9-3.2); Lymphocytes Percent Auto 3.3 % (18.3-44.2); Mean Corpuscular HGB Conc 33.9 g/dl (32-36); Mean Corpuscular Hemoglobin 24.8 pg (26-34); Mean Platelet Volume 9.9 fl (7.4-10.4); Monocytes Absolute Auto 1.6 K/mm3 (0.1-0.6); Monocytes Percent Auto 10.9 % (2.6-8.5); Neutrophils Absolute Auto 12.2 K/mm3 (1.3-6.7); Neutrophils Percent Auto 84.3 % (45.5-73.1); Platelet Count Result 194 k/mm3 (150-375); Red Blood Count 4.48 M/mm3 (4.6-6.20); White Blood Count 14.5 K/mm3 (4.5-10.0)
[2022-07-07 04:42] LABS: Alanine Aminotransferase 101 U/L (6-50); Albumin Level 2.9 g/dL (3.5-5.1); Alkaline Phosphatase 117 U/L (38-126); Anion Gap 5 mmol/L (8-16); Aspartate Amino Transferase 55 U/L (17-59); Bilirubin,Total 0.6 mg/dL (0.2-1.3); Blood Urea Nitrogen 37 mg/dL (9-20); Calcium 7.6 mg/dL (8.4-10.2); Carbon Dioxide 26 mmol/L (22-30); Chloride 93 mmol/L (98-107); Estimated CRCL calculation 70 ml/min; Estimated Glomerular Filt Rate > 60; Glucose 61 mg/dL (65-110); Magnesium 2.2 mg/dL (1.6-2.3); Potassium 3.5 mmol/L (3.4-5.0); Sodium 124 mmol/L (137-145)
[2022-07-07 04:56] LABS: Glucose Point of Care 162 mg/dl (65-105)
[2022-07-07 04:56] LABS: Glucose Point of Care 63 mg/dl (65-105)
[2022-07-07] MEDS: ALBUTEROL SULFATE (*SP) AEROSOL 1 PUFF 2 PUFF INHALATION (06:27)
[2022-07-07] MEDS: FLUTICASONE/UMECLIDIN/VILANTER 100-62.5-25 MCG ELLIPTA 1 PUFF INHALATION (06:39)
[2022-07-07 08:29] LABS: Glucose Point of Care 76 mg/dl (65-105)
[2022-07-07] MEDS: guaiFENesin 12 HR 600 MG TABCR 1200 MG PO ×2 (09:01→20:32)
[2022-07-07] MEDS: OPTI-GEN TAB 1 TABLET PO (09:01)
[2022-07-07] MEDS: ATORVASTATIN 40 MG TABLET PO (09:01)
[2022-07-07] MEDS: amLODIPine BESYLATE 5 MG TABLET PO ×2 (09:02→17:57)
[2022-07-07] MEDS: ASPIRIN 81 MG CHEWABLE TABLET PO (09:02)
[2022-07-07] MEDS: cloNIDine HCL 0.2 MG TABLET PO ×2 (09:02→17:57)
[2022-07-07] MEDS: PANTOPRAZOLE 40 MG TABLET PO (09:02)
[2022-07-07] MEDS: carvediloL 25 MG TABLET PO ×2 (09:02→20:32)
[2022-07-07] MEDS: ENOXAPARIN 40 MG/0.4 ML SYRINGE SUB-Q (09:02)
[2022-07-07] MEDS: DEXTROSE 10% 1,000 ML 75 ML IV CONT (09:04)
[2022-07-07] MEDS: IPRATROPIUM BR 0.02% INH SOLN 0.5 MG/2.5 ML VIAL INHALATION ×2 (09:22→22:06)
--- NOTE | 2022-07-07 11:12 | PM.IMPN ---
Progress Note: A&P Assessment and Plan (1) Acute respiratory failure with hypoxia: Code(s): J96.01 - Acute respiratory failure with hypoxia Status: Acute Assessment and Plan: Likely secondary to postobstructive pneumonia versus empyema Thoracentesis performed 07/05, organisms found in the Gram stain Empyema noted Transfer pending to [facility], accepted by Dr. Waldron, oncology (2) Community acquired pneumonia: Code(s): J18.9 - Pneumonia, unspecified organism Status: Acute Assessment and Plan: Continue broad-spectrum antibiotics with vancomycin, Zosyn and in light of Gram stain findings, follow final results Leukocytosis worsened despite broadening of antibiotics, monitor (3) Pleural effusion on right: Code(s): J90 - Pleural effusion, not elsewhere classified Status: Acute Assessment and Plan: Follow-up pleural fluid analysis from thoracentesis, still pending, most likely empyema, see above (4) Lung cancer: Code(s): C34.90 - Malignant neoplasm of unspecified part of unspecified bronchus or lung Status: Acute Assessment and Plan: Status post radiation and chemotherapy according to history (5) Acute hyponatremia: Code(s): E87.1 - Hypo-osmolality and hyponatremia Status: Acute Assessment and Plan: Much improved off IV fluids, continue to monitor Suspect SIADH, will initiate fluid restriction today and assess response (6) Hypoglycemia: Code(s): E16.2 - Hypoglycemia, unspecified Status: Acute Plan DVT prophylaxis with lovenox GI prophylaxis not indicated Code status full code Subjective Date/time seen: 07/07/22 11:12 Interval history: No overnight events noted. No chest pain. No nausea, vomiting or diarrhea. No fevers or chills. Patient states she feels much better than yesterday, still with an occasional cough. Review of Systems Review of Systems: 12 point review of systems was assessed and was negative except as noted in the HPI Exam Narrative: General: No acute distress, alert and oriented per baseline, stable on 3 L nasal cannula HEENT: Atraumatic, normocephalic, mucous membranes moist CV: Regular rate and rhythm, S1, S2 Lungs: No air movement noted on right upper and middle lobes, some crackles noted and right lower lobe, clear breath sounds left upper lobe, diminished breath sounds left lower lobe Abdomen: Soft, nontender, nondistended Extremities: Normal to inspection Skin: No rashes noted, no lesions or wounds seen Psych: Euthymic, normal affect Objective Data Vital Signs Vital Signs: Vital Signs - 24 hr 07/06/22 12:00 07/06/22 16:00 07/06/22 12:00 Temperature 97.5 F L 98.1 F Pulse Rate 87 80 77 Respiratory Rate 20 20 Blood Pressure 146/81 H 139/73 Pulse Oximetry 98 97 Oxygen Delivery Oxygen Flow Rate 07/06/22 16:00 07/06/22 20:00 07/06/22 18:00 Temperature 97.9 F Pulse Rate 86 90 82 Respiratory Rate 18 Blood Pressure 151/88 H Pulse Oximetry 94 Oxygen Delivery Oxygen Flow Rate 07/06/22 21:01 07/06/22 23:42 07/06/22 23:42 Temperature Pulse Rate 85 92 Respiratory Rate 22 H Blood Pressure Pulse Oximetry 97 Oxygen Delivery Nasal Cannula Oxygen Flow Rate 2 07/06/22 20:00 07/07/22 00:00 07/07/22 00:00 Temperature 97.5 F L Pulse Rate 81 Respiratory Rate 22 H Blood Pressure 125/61 Pulse Oximetry 94 95 95 Oxygen Delivery Nasal Cannula Nasal Cannula Oxygen Flow Rate 2 2 07/06/22 20:00 07/06/22 22:00 07/07/22 00:00 Temperature Pulse Rate 94 78 88 Respiratory Rate Blood Pressure Pulse Oximetry Oxygen Delivery Oxygen Flow Rate 07/07/22 02:00 07/07/22 04:00 07/07/22 04:00 Temperature 97.3 F L Pulse Rate 88 89 Respiratory Rate 20 Blood Pressure 153/74 H Pulse Oximetry 96 96 Oxygen Delivery Nasal Cannula Oxygen Flow Rate 2 07/07/22 04:00
[2022-07-07 12:07] LABS: Glucose Point of Care 131 mg/dl (65-105)
[2022-07-07 16:40] LABS: Glucose Point of Care 98 mg/dl (65-105)
[2022-07-07 20:09] LABS: Glucose Point of Care 162 mg/dl (65-105)
[2022-07-07] MEDS: MELATONIN 5 MG TABLET PO (20:33)
[2022-07-07 23:31] LABS: Glucose Point of Care 142 mg/dl (65-105)
[2022-07-08] VITALS (20 sets, daily range): BP systolic 126–166; BP diastolic 66–94; PULSE 84–112; RESP 18–22; TEMP 35.6–36.5; O2SAT 94–98
[2022-07-08 01:05] LABS: Vancomycin Trough 6.6 ug/mL (10.0-20.0)
[2022-07-08 04:12] LABS: Basophils Absolute Auto 0.1 K/mm3 (0.0-0.1); Basophils Percent Auto 0.3 % (0.2-1.2); Eosinophils Percent Auto 0.1 % (0-4.4); Hematocrit 33.6 % (42.0-52.0); Hemoglobin 11.1 g/dL (14.0-18.0); Immature Granulocyte Absolute 0.39 K/mm3 (0.00-0.031); Immature Granulocyte Percent A 2.5 % (0-0.5); Lymphocytes Absolute Auto 0.42 K/mm3 (0.9-3.2); Lymphocytes Percent Auto 2.7 % (18.3-44.2); Mean Corpuscular Hemoglobin 24.9 pg (26-34); Mean Corpuscular Volume 75.3 fl (80-100); Mean Platelet Volume 9.9 fl (7.4-10.4); Monocytes Absolute Auto 1.2 K/mm3 (0.1-0.6); Monocytes Percent Auto 7.8 % (2.6-8.5); Neutrophils Absolute Auto 13.6 K/mm3 (1.3-6.7); Neutrophils Percent Auto 86.6 % (45.5-73.1); Platelet Count Result 180 k/mm3 (150-375); Red Blood Count 4.46 M/mm3 (4.6-6.20); Red Cell Distribution Width 16.1 % (11.5-14.5); White Blood Count 15.7 K/mm3 (4.5-10.0)
[2022-07-08 04:35] LABS: Alanine Aminotransferase 66 U/L (6-50); Albumin Level 2.7 g/dL (3.5-5.1); Alkaline Phosphatase 116 U/L (38-126); Anion Gap 5 mmol/L (8-16); Aspartate Amino Transferase 22 U/L (17-59); Bilirubin,Total 1.1 mg/dL (0.2-1.3); Blood Urea Nitrogen 19 mg/dL (9-20); Calcium 7.2 mg/dL (8.4-10.2); Carbon Dioxide 26 mmol/L (22-30); Chloride 92 mmol/L (98-107); Estimated CRCL calculation 97 ml/min; Estimated Glomerular Filt Rate > 60; Glucose 135 mg/dL (65-110); Magnesium 1.7 mg/dL (1.6-2.3); Potassium 3.4 mmol/L (3.4-5.0); Sodium 123 mmol/L (137-145)
--- NOTE | 2022-07-08 08:07 | PM.IMPN ---
Progress Note: A&P Assessment and Plan (1) Acute respiratory failure with hypoxia: Code(s): J96.01 - Acute respiratory failure with hypoxia Status: Acute Assessment and Plan: Likely secondary to postobstructive pneumonia versus empyema Thoracentesis performed 07/05, organisms found in the Gram stain Empyema noted, transfer pending to [facility], accepted by Dr. Waldron, oncology (2) Community acquired pneumonia: Code(s): J18.9 - Pneumonia, unspecified organism Status: Acute Assessment and Plan: Continue broad-spectrum antibiotics with Vancomycin, Zosyn, Levaquin in light of Gram stain findings and per request of Dr. Waldron at [facility], follow final results Leukocytosis worsened from yesterday, monitor, clinically stable (3) Pleural effusion on right: Code(s): J90 - Pleural effusion, not elsewhere classified Status: Acute Assessment and Plan: Follow-up pleural fluid analysis from thoracentesis, still pending, most likely empyema, see above (4) Lung cancer: Code(s): C34.90 - Malignant neoplasm of unspecified part of unspecified bronchus or lung Status: Acute Assessment and Plan: Status post radiation and chemotherapy according to history (5) Acute hyponatremia: Code(s): E87.1 - Hypo-osmolality and hyponatremia Status: Acute Assessment and Plan: Suspect SIADH, cont fluid restriction, reduce to 1500 from 1800 ml (6) Hypoglycemia: Code(s): E16.2 - Hypoglycemia, unspecified Status: Acute Assessment and Plan: Resolved, monitor Plan DVT prophylaxis with lovenox GI prophylaxis not indicated Code status full code Subjective Date/time seen: 07/08/22 08:07 Interval history: No overnight events noted. No chest pain. No nausea, vomiting or diarrhea. No fevers or chills. States he is having trouble sleeping and takes benadryl at home and is requesting that and a higher dose of melatonin. SOB improved, cough unchanged, dry and minimal. Review of Systems Review of Systems: 12 point review of systems was assessed and was negative except as noted in the HPI Exam Narrative: General: No acute distress, alert and oriented per baseline, stable on 3 L nasal cannula HEENT: Atraumatic, normocephalic, mucous membranes moist CV: Regular rate and rhythm, S1, S2 Lungs: No air movement noted on right upper and middle lobes, some crackles noted and right lower lobe, clear breath sounds left upper lobe, diminished breath sounds left lower lobe Abdomen: Soft, nontender, nondistended Extremities: Normal to inspection Skin: No rashes noted, no lesions or wounds seen Psych: Euthymic, normal affect Objective Data Vital Signs Vital Signs: Vital Signs - 24 hr 07/07/22 09:02 07/07/22 09:25 07/07/22 09:32 Temperature Pulse Rate 94 94 93 Respiratory Rate 20 20 Blood Pressure Pulse Oximetry Oxygen Delivery Oxygen Flow Rate 07/07/22 10:00 07/07/22 12:00 07/07/22 12:00 Temperature 98.0 F Pulse Rate 83 81 Respiratory Rate 20 Blood Pressure 131/75 Pulse Oximetry 95 96 Oxygen Delivery Nasal Cannula Oxygen Flow Rate 2 07/07/22 12:00 07/07/22 14:00 07/07/22 16:00 Temperature Pulse Rate 87 79 Respiratory Rate Blood Pressure Pulse Oximetry 96 Oxygen Delivery Nasal Cannula Oxygen Flow Rate 2 07/07/22 16:00 07/07/22 16:00 07/07/22 18:00 Temperature 98.0 F Pulse Rate 90 96 102 H Respiratory Rate 16 Blood Pressure 147/68 H Pulse Oximetry 95 Oxygen Delivery Oxygen Flow Rate 07/07/22 20:32 07/07/22 20:00 07/07/22 20:00 Temperature 97.8 F Pulse Rate 105 H 106 H 102 H Respiratory Rate 20 Blood Pressure 142/74 H Pulse Oximetry 95 Oxygen Delivery Oxygen Flow Rate 07/07/22 20:00 07/07/22 22:09 07/07/22 22:10 Temperature Pulse Rate 102 H 95 95 Respiratory Rate 20 20 Blood Pressure Pulse Oxi
[2022-07-08 08:19] LABS: Glucose Point of Care 152 mg/dl (65-105)
[2022-07-08] MEDS: FLUTICASONE/UMECLIDIN/VILANTER 100-62.5-25 MCG ELLIPTA 1 PUFF INHALATION (08:31)
[2022-07-08] MEDS: cloNIDine HCL 0.2 MG TABLET PO ×2 (09:53→18:04)
[2022-07-08] MEDS: ASPIRIN 81 MG CHEWABLE TABLET PO (09:53)
[2022-07-08] MEDS: guaiFENesin 12 HR 600 MG TABCR 1200 MG PO ×2 (09:53→20:43)
[2022-07-08] MEDS: amLODIPine BESYLATE 5 MG TABLET PO ×2 (09:53→18:05)
[2022-07-08] MEDS: ATORVASTATIN 40 MG TABLET PO (09:54)
[2022-07-08] MEDS: ENOXAPARIN 40 MG/0.4 ML SYRINGE SUB-Q (09:54)
[2022-07-08] MEDS: PANTOPRAZOLE 40 MG TABLET PO (09:54)
[2022-07-08] MEDS: carvediloL 25 MG TABLET PO ×2 (09:54→20:44)
[2022-07-08] MEDS: OPTI-GEN TAB 1 TABLET PO (09:54)
[2022-07-08 12:05] LABS: Glucose Point of Care 292 mg/dl (65-105)
[2022-07-08 16:10] LABS: Glucose Point of Care 275 mg/dl (65-105)
[2022-07-08] MEDS: PIPERACILLIN/TAZOBACTAM SOD 4.5 GM in SODIUM CHLORIDE 0.9% IV 100 ML 200 ML IVPB (18:04)
[2022-07-08 20:35] LABS: Glucose Point of Care 206 mg/dl (65-105)
[2022-07-08] MEDS: diphenhydrAMINE HCl CAP 25 MG CAPSULE 50 MG PO (20:44)
[2022-07-08] MEDS: MELATONIN 5 MG TABLET PO (20:44)
[2022-07-09] VITALS (20 sets, daily range): BP systolic 116–160; BP diastolic 58–88; PULSE 83–105; RESP 18–22; TEMP 35.7–37.2; O2SAT 91–98
[2022-07-09] MEDS: ALBUTEROL SULFATE NEB 2.5 MG/3 ML INH INHALATION (00:55)
[2022-07-09] MEDS: IPRATROPIUM BR 0.02% INH SOLN 0.5 MG/2.5 ML VIAL INHALATION (00:55)
[2022-07-09] MEDS: PIPERACILLIN/TAZOBACTAM SOD 4.5 GM in SODIUM CHLORIDE 0.9% IV 100 ML 200 ML IVPB ×4 (01:15→20:36)
[2022-07-09 05:26] LABS: Basophils Absolute Auto 0.1 K/mm3 (0.0-0.1); Basophils Percent Auto 0.3 % (0.2-1.2); Eosinophils Percent Auto 0.2 % (0-4.4); Hematocrit 31.6 % (42.0-52.0); Hemoglobin 10.6 g/dL (14.0-18.0); Immature Granulocyte Absolute 0.73 K/mm3 (0.00-0.031); Immature Granulocyte Percent A 4.2 % (0-0.5); Lymphocytes Absolute Auto 0.37 K/mm3 (0.9-3.2); Lymphocytes Percent Auto 2.1 % (18.3-44.2); Mean Corpuscular HGB Conc 33.5 g/dl (32-36); Mean Corpuscular Hemoglobin 24.7 pg (26-34); Mean Corpuscular Volume 73.7 fl (80-100); Mean Platelet Volume 9.7 fl (7.4-10.4); Monocytes Absolute Auto 1.4 K/mm3 (0.1-0.6); Monocytes Percent Auto 7.8 % (2.6-8.5); Neutrophils Absolute Auto 14.8 K/mm3 (1.3-6.7); Neutrophils Percent Auto 85.4 % (45.5-73.1); Platelet Count Result 207 k/mm3 (150-375); Red Blood Count 4.29 M/mm3 (4.6-6.20); White Blood Count 17.3 K/mm3 (4.5-10.0)
[2022-07-09 05:38] LABS: Alanine Aminotransferase 41 U/L (6-50); Albumin Level 2.6 g/dL (3.5-5.1); Alkaline Phosphatase 99 U/L (38-126); Anion Gap 4 mmol/L (8-16); Aspartate Amino Transferase 21 U/L (17-59); Bilirubin,Total 1.2 mg/dL (0.2-1.3); Blood Urea Nitrogen 15 mg/dL (9-20); Carbon Dioxide 28 mmol/L (22-30); Chloride 89 mmol/L (98-107); Estimated CRCL calculation 97 ml/min; Estimated Glomerular Filt Rate > 60; Glucose 164 mg/dL (65-110); Potassium 3.6 mmol/L (3.4-5.0); Sodium 121 mmol/L (137-145)
[2022-07-09 05:58] LABS: Burr Cells 1+ (NORMAL); Platelet Estimate Adequate (Adequate); Poikilocytosis 1+ (NORMAL)
[2022-07-09 05:59] LABS: Schistocytes Rare (NORMAL)
[2022-07-09] MEDS: FLUTICASONE/UMECLIDIN/VILANTER 100-62.5-25 MCG ELLIPTA 1 PUFF INHALATION (07:15)
[2022-07-09] MEDS: cloNIDine HCL 0.2 MG TABLET PO ×2 (08:48→16:59)
[2022-07-09] MEDS: ASPIRIN 81 MG CHEWABLE TABLET PO (08:48)
[2022-07-09] MEDS: amLODIPine BESYLATE 5 MG TABLET PO ×2 (08:49→16:59)
[2022-07-09] MEDS: PANTOPRAZOLE 40 MG TABLET PO (08:49)
[2022-07-09] MEDS: ATORVASTATIN 40 MG TABLET PO (08:49)
[2022-07-09] MEDS: carvediloL 25 MG TABLET PO ×2 (08:49→20:36)
[2022-07-09] MEDS: OPTI-GEN TAB 1 TABLET PO (08:49)
[2022-07-09] MEDS: guaiFENesin 12 HR 600 MG TABCR 1200 MG PO ×2 (08:50→20:36)
[2022-07-09] MEDS: ENOXAPARIN 40 MG/0.4 ML SYRINGE SUB-Q (08:51)
[2022-07-09 12:16] LABS: Glucose Point of Care 201 mg/dl (65-105)
[2022-07-09 13:28] LABS: Vancomycin Trough 9.4 ug/mL (10.0-20.0)
--- NOTE | 2022-07-09 15:20 | PM.IMPN ---
Progress Note: A&P Assessment and Plan (1) Acute respiratory failure with hypoxia: Code(s): J96.01 - Acute respiratory failure with hypoxia Status: Acute Assessment and Plan: Likely secondary to postobstructive pneumonia versus empyema Thoracentesis performed 07/05, organisms found in the Gram stain Empyema noted, transfer pending to [facility], accepted by Dr. Waldron, oncology Called and spoke with Dr. Waldron directly today, July 09, to update her on the patient's worsening leukocytosis and fatigue as well as shortness of breath, they will try to have a bed within 24-48 hours on their medical floor with CT surgery support (2) Community acquired pneumonia: Code(s): J18.9 - Pneumonia, unspecified organism Status: Acute Assessment and Plan: Continue broad-spectrum antibiotics with Vancomycin, Zosyn, Levaquin in light of Gram stain findings and per request of Dr. Waldron at [facility], follow final results Leukocytosis worsened from yesterday, monitor, clinically stable (3) Pleural effusion on right: Code(s): J90 - Pleural effusion, not elsewhere classified Status: Acute Assessment and Plan: Follow-up pleural fluid analysis from thoracentesis, still pending, most likely empyema, see above (4) Lung cancer: Code(s): C34.90 - Malignant neoplasm of unspecified part of unspecified bronchus or lung Status: Acute Assessment and Plan: Status post radiation and chemotherapy according to history (5) Acute hyponatremia: Code(s): E87.1 - Hypo-osmolality and hyponatremia Status: Acute Assessment and Plan: Suspect SIADH, cont fluid restriction, reduce to 1500 from 1800 ml Worsened on fluid restriction, might not be following the restriction because there are multiple bottles of soda and fluids on his tray all the time, will continue for one more day and educated importance on following restriction (6) Hypoglycemia: Code(s): E16.2 - Hypoglycemia, unspecified Status: Acute Assessment and Plan: Resolved, monitor, FBG 164 today, check a1c Plan DVT prophylaxis with lovenox GI prophylaxis not indicated Code status full code Subjective Date/time seen: 07/09/22 15:20 Interval history: No overnight events noted. No chest pain. No nausea, vomiting or diarrhea. No fevers. Feels more tired today, more SOB, also with chills, no fevers. Review of Systems Review of Systems: 12 point review of systems was assessed and was negative except as noted in the HPI Exam Narrative: General: No acute distress, alert and oriented per baseline, stable on 3 L nasal cannula HEENT: Atraumatic, normocephalic, mucous membranes moist CV: Regular rate and rhythm, S1, S2 Lungs: No air movement noted on right upper and middle lobes, some crackles noted and right lower lobe, clear breath sounds left upper lobe, diminished breath sounds left lower lobe Abdomen: Soft, nontender, nondistended Extremities: Normal to inspection Skin: No rashes noted, no lesions or wounds seen Psych: Euthymic, normal affect Objective Data Vital Signs Vital Signs: Vital Signs - 24 hr 07/08/22 16:33 07/08/22 16:00 07/08/22 18:00 Temperature 97.3 F L Pulse Rate 94 88 99 Respiratory Rate 21 H Blood Pressure 139/66 Pulse Oximetry 97 Oxygen Delivery Oxygen Flow Rate 07/08/22 16:00 07/08/22 20:41 07/08/22 20:44 Temperature 97.5 F L Pulse Rate 92 102 H Respiratory Rate 20 Blood Pressure 151/94 H Pulse Oximetry 98 98 Oxygen Delivery Nasal Cannula Oxygen Flow Rate 2 07/08/22 20:00 07/08/22 20:00 07/08/22 21:49 Temperature Pulse Rate 87 87 89 Respiratory Rate 20 Blood Pressure Pulse Oximetry 98 Oxygen Delivery Nasal Cannula Oxygen Flow Rate 2 07/08/22 22:58 07/09/22 00:00 07/09/22 00:00 Temperature 97.5 F L Pulse Rate 84 83 83 Respiratory Rate 20 20 Blood Pressure 139/66
[2022-07-09 16:35] LABS: Glucose Point of Care 285 mg/dl (65-105)
[2022-07-09 21:16] LABS: Glucose Pleural Fluid 38 mg/dL; Total Protein Pleural Fluid 4.4 g/dL
--- NOTE | 2022-07-09 21:42 | PC.NURSE ---
2142 Patient left unit per EMS en route to [facility]. [facility] called and updated.
--- NOTE | 2022-07-09 23:10 | PC.NURSE ---
Addendum entered by Georgiana Leonard RN 07/09/22 23:15: Updated report called to SYEDA Klein at [facility]. Original Note: 5900 Updated report called to the new receiving nurse at [facility]. Patient going to room 7490.
[2022-07-10 08:21] LABS: Albumin Pleural Fluid 2.2 g/dL
--- NOTE | 2022-07-23 20:23 | PM.TDS ---
Transfer Discharge Sum: Prov Provider Date of admission: 07/05/22 10:20 Primary care physician: Jhon Casillas, MD Admitting clinician: Porsche Dinero DO Consults: 07/05/22 Consult to Respiratory Therapy Routine Reason for Consult:: flutter valve, mucus plugging noted, RUL collapse DS: Admitting Diagnosis Discharge Date 07/09/22 Admitting Diagnosis Shortness of breath DS: Discharge Diagnosis Discharge Diagnosis (1) Acute respiratory failure with hypoxia: Code(s): J96.01 - Acute respiratory failure with hypoxia Status: Acute Assessment and Plan: Likely secondary to postobstructive pneumonia versus empyema Thoracentesis performed 07/05, organisms found in the Gram stain Empyema noted, transfer pending to [facility], accepted by Dr. Waldron, oncology Called and spoke with Dr. Waldron directly today, July 09, to update her on the patient's worsening leukocytosis and fatigue as well as shortness of breath, they will try to have a bed within 24-48 hours on their medical floor with CT surgery support (2) Community acquired pneumonia: Code(s): J18.9 - Pneumonia, unspecified organism Status: Acute Assessment and Plan: Continue broad-spectrum antibiotics with Vancomycin, Zosyn, Levaquin in light of Gram stain findings and per request of Dr. Waldron at [facility], follow final results Leukocytosis worsened from yesterday, monitor, clinically stable (3) Pleural effusion on right: Code(s): J90 - Pleural effusion, not elsewhere classified Status: Acute Assessment and Plan: Follow-up pleural fluid analysis from thoracentesis, still pending, most likely empyema, see above (4) Lung cancer: Code(s): C34.90 - Malignant neoplasm of unspecified part of unspecified bronchus or lung Status: Acute Assessment and Plan: Status post radiation and chemotherapy according to history (5) Acute hyponatremia: Code(s): E87.1 - Hypo-osmolality and hyponatremia Status: Acute Assessment and Plan: Suspect SIADH, cont fluid restriction, reduce to 1500 from 1800 ml Worsened on fluid restriction, might not be following the restriction because there are multiple bottles of soda and fluids on his tray all the time, will continue for one more day and educated importance on following restriction (6) Hypoglycemia: Code(s): E16.2 - Hypoglycemia, unspecified Status: Acute Assessment and Plan: Resolved, monitor, FBG 164 today, check a1c Plan DVT prophylaxis with lovenox GI prophylaxis not indicated Code status full code Transfer Discharge Sum: Med Medications Active and Home Medications: Home Medications albuterol sulfate 90 mcg/actuation aerosol inhaler 2 puff inhalation Q4H PRN Shortness Of Breath 07/04/22 [History Confirmed 07/04/22] amlodipine 5 mg tablet 5 mg PO BID 07/04/22 [History Confirmed 07/04/22] aspirin 81 mg tablet 81 mg PO DAILY 07/04/22 [History Confirmed 07/04/22] atorvastatin 40 mg tablet 40 mg PO DAILY 07/04/22 [History Confirmed 07/04/22] azithromycin 250 mg tablet 250 mg PO DAILY 07/04/22 [History Confirmed 07/04/22] benzonatate 100 mg capsule 100 mg PO Q8H PRN Cough 07/04/22 [History Confirmed 07/04/22] budesonide 160 mcg-glycopyr 9 mcg-formot 4.8 mcg/actuation HFA inhaler (Breztri Aerosphere) 1 inh inhalation BID 07/04/22 [History Confirmed 07/04/22] carvedilol 25 mg tablet 25 mg PO BID 07/04/22 [History Confirmed 07/04/22] clonidine HCl 0.2 mg tablet 0.2 mg PO BID 07/04/22 [History Confirmed 07/04/22] esomeprazole magnesium 20 mg tablet,delayed release 20 mg PO DAILY 07/04/22 [History Confirmed 07/04/22] glimepiride 4 mg tablet 4 mg PO DAILY 07/04/22 [History Confirmed 07/04/22] guaifenesin 1,200 mg tablet, extended release 12 hr (Mucinex) 1,200 mg PO BID 07/04/22 [History Confirmed 07/04/22] metformin 1,000 mg tablet 1,000 mg PO BID 07/04/22 [History Confirmed 07/04/22] 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
== END 2022-07-09 21:42 | disposition short-term general hospital (02) | DRG 177 ==
LOC: ANHED 19:47 → ANHIMU 21:10
PROVIDERS: Admitting Provider Student in an Organized Health Care Education/Training Program; Emergency Provider Emergency Medicine; PCP Internal Medicine; Visit Provider Nurse Practitioner
DX: J86.9 Pyothorax without fistula (principal); J18.9 Pneumonia, unspecified organism; J96.01 Acute respiratory failure with hypoxia; J90 Pleural effusion, not elsewhere classified; E22.2 Syndrome of inappropriate secretion of antidiuretic hormone; C34.90 Malignant neoplasm of unspecified part of unspecified bronchus or lung; I10 Essential (primary) hypertension; E78.5 Hyperlipidemia, unspecified; J43.9 Emphysema, unspecified; E11.9 Type 2 diabetes mellitus without complications; Z20.822 Contact with and (suspected) exposure to COVID-19; Z87.891 Personal history of nicotine dependence; Z79.82 Long term (current) use of aspirin; Z79.84 Long term (current) use of oral hypoglycemic drugs; Z99.81 Dependence on supplemental oxygen; Z92.3 Personal history of irradiation; Z92.21 Personal history of antineoplastic chemotherapy
CPT/HCPCS: 32555; 36415; 71045; 71250; 80053; 80202; 81001; 82042; 82945; 82948; 83605; 83615; 83735; 83986; 84157; 85025; 85610; 85730; 87040; 87070; 87075; 87086; 87102; 87147; 87205; 87206; 87637; 88108; 88184; 88305; 89051; 93005; 94640; 96361; 96365; 96367; 96368; 96375; 97161; 97165; 99291; A9270; G0378; J0456; J0696; J1650; J1956; J2543; J2930; J3370; J3475; J7030

== ENCOUNTER 2022-10-25 08:00 | Outpatient (CLI) | payer MEDICARE, SELFPAY ==
--- NOTE | 2022-10-26 09:22 | WPDSIXMINUTE ---
Six Minute Walk Procedure Procedure Performed Pulmonary Stress Test (6 min walk) Six Minute Walk Six Minute Walk: This is a 6 minute walk test. The test was performed and interpreted in accordance with the 2014 ERS/ATS task force guidelines. Findings: The patient's resting room air oxygen saturation measured by pulse oximetry was 96% and heart rate was 84 bpm. Patient ambulated for 290 meters and oxygen saturation remained 92 to 98%. Heart rate at the end of the study was 92 bpm. The patient did not qualify for supplemental oxygen at rest or with ambulation. There are no prior studies for comparison.
== END 2022-10-25 08:01 | disposition home or self-care (01) ==
LOC: ANHPFT 08:06
PROVIDERS: PCP Internal Medicine
DX: J43.9 Emphysema, unspecified (principal)
CPT/HCPCS: 94618

== ENCOUNTER 2023-01-31 13:30 | Outpatient (RCR) | payer MEDICARE, SELFPAY | END 2023-02-05 09:01 | disposition home or self-care (01) | LOC: ANHCPREHAB 13:30 | PROVIDERS: PCP Internal Medicine; Visit Provider Internal Medicine | DX: J43.9 Emphysema, unspecified (principal) | CPT/HCPCS: 94625; G0239 ==

== ENCOUNTER 2024-10-11 11:21 | Day surgery (SDC) | payer MEDICARE, SELFPAY ==
[2024-10-11] VITALS (12 sets, daily range): BP systolic 114–168; BP diastolic 73–100; PULSE 78–93; RESP 16–23; TEMP 36.2–36.6; O2SAT 96–100
--- OUTSIDE RECORDS SUMMARY | 2024-10-11 11:59 | XMS_ITS | Encounter Summary ---
Author Organization [facility] Address [address] [place] [address] Phone Care Team Providers Care Dental Scheduling Coordinator Name Role Phone Gretchen Waldron MD Unavailable Henrique Dean MD Primary Care Provider [phone] George Murillo MD Unavailable [phone] Ivan Hemphill MD Unavailable [phone] Jhon Teresa DPM Unavailable [phone] Encounter Details Date Type Department Care Team (Late st Contact Info) Description 11/22/2022 Orders Only [facility] Scanning, Provider Social History Tobacco Use Types Packs/Day Years Used Date Smoking Tobacco: Former Smokeless Tobacco: Never OASIS D0700: Social Isolation Answer Da te Recorded Frequency of experiencing loneliness or isolatio n Never 07/30/2022 OASIS A1250: Transportation Answer Date Recorded Lack of Transportation (Medical) No 07/30/2022 Lack of Transportation (Non-Medical) No 07/30/2022 Patient Unable or Declines to Respond No 07/30/2022 OASIS B1300: Health Literacy Answer Larry e Recorded Frequency of needing help to read materials from doctor or pharmacy Sometimes 07/30/2022 Social Connection and Isolat ion Panel [NHANES] Answer Date Recorded In a typical week, how many times do you talk on the phone with family, friends, or neighbors? More than three times a week 09/04/2022 How often do you get togethe r with friends or relatives? More than three times a week 09/04/2022 How often do you attend chur ch or orthodoxy services? Never 09/04/2022 Do you belong to any clubs o r organizations such as moravian groups, unions, fraternal or athletic groups, or school groups? No 09/04/2022 How often do you attend meet ings of the clubs or organizations you belong to? Never 09/04/2022 Are you , , di vorced, , never , or living with a partner? 09/04/2022 AUDIT-C Answer Date Recorded Q1: How often do you have a drink containing alc ohol? 2-4 times a month 08/20/2022 Q2: How many drinks containi ng alcohol do you have on a typical day when you are drinking? 1 or 2 08/20/2022 Q3: How often do you have si x or more drinks on one occasion? Less than monthly 08/20/2022 Overall Financial Resource Strain (CARDIA) Answe r Date Recorded How hard is it for you to pa y for the very basics like food, housing, medical care, and heating? Somewhat hard 09/04/2022 PHQ-2 Answer Date Recorded PHQ-2 Total Score (If total score is 3 or more points, staff should administer the PHQ-9) 0 09/04/2022 Hunger Vital Sign Answer Date Recorded Within the past 12 months, y ou worried that your food would run out before you got the money to buy more. Never true 09/05/19 23 Within the past 12 months, t he food you bought just didn't last and you didn't have money to get more. Never true 09/04/2022 PRAPARE - Transportation Answer Date Re corded In the past 12 months, has l ack of transportation kept you from medical appointments or from getting medications? No 08/24 In the past 12 months, has l ack of transportation kept you from meetings, work, or from getting things needed for daily living? No 09/04/2022 Housing Stability Vital Sign Answer Larry e Recorded In the last 12 months, was t here a time when you were not able to pay the mortgage or rent on time? No 09/04/2022 In the last 12 months, how many places have you lived? 1 09/04/2022 In the last 12 months, was t here a time when you did not have a steady place to sleep or slept in a longterm (including now)? No 09/04/2022 Personal Safety Answer Date Recorded Have you ever been in or are you currently in a harmful physical or emotional relationship or is someone making you feel afraid or unsafe? 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 Gender Identity Not on file Sexual Orientation Not on file documented as of this encounter Plan of Treatment Scheduled Procedures Name Priority Associated Diagnoses Date/Ti me ESOPHAGOGASTRODUODENOSCOPY Open Access Iron deficiency anemia, unspecified iron deficiency anemia type Colon cancer screening COLONOSCOPY Open Access Iron deficiency anemia, unspecified iron deficiency anemia type Colon cancer screening documented as of this encounter Procedures Procedure Name Priority Date/Time Associated Diagnosis Comments SCAN - RADIOLOGY/IMAGING 11/22/2022 documented in this encounter Results * SCAN - RADIOLOGY/IMAGING (11/22/2022) Anatomical Region Laterality Modality Other us Provider Scanning Final Result documented in this encounter Visit Diagnoses Not on filedocumented in this encounter Additional Health Concerns Infection Onset Date Last Indicated Resolved Time COVID19 02/02/2024 02/02/2024 02/14/2024 3:0 5 AM CDT COVID: Recovered Comment:Added based on recent COVID infection. 02/14/2024 02/20/2024 05/14/2024 3:[address] documented as of this encounter Care Teams Dental Scheduling Coordinator Relationship Specialty Start Date End Date Henrique Dean MD [address] [facility] [address] [place] [address] PCP - General Internal Medicine 09/17/22 Gretchen Waldron MD [address] [facility] [address] [place] [address] Medical Oncologist/Roll Coverer Medical Oncology 08/06/22 George Murillo MD [address] [facility] [address] [place] [address] Insurance Counsel Pulmonary Disease 06/06/23 Ivan Hemphill MD [address] [facility] [address] [place], [place] [id number] Consulting Physician Endocrinology Diabetes & Metabolism 06/06/23 Jhon Teresa, GRAY [address] DIV SUR[facility]OD[facility]RY, [address] [place] [address] Consulting Physician Podiatry 06/06/23 documented as of this encounter
--- OUTSIDE RECORDS SUMMARY | 2024-10-11 11:59 | XMS_ITS | Clinical Summary ---
Author Organization [facility] Address [address] [place] [address] Care Team Providers Care Cotton Washer Name Role Phone Unavailable Primary Care Provider Unavailabl e Source Comments [facility],non-owned Affiliates and Associated Physician Practices is amultiple site organization consisting of ambulatory clinics and hospital sitesin [place], [place], [place] and [place]. This disclosure is being madepursuant to the Care Everywhere program and may not contain all information available regarding this patient. 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 Gender Identity Not on file Sexual Orientation Not on file Plan of Treatment Health Maintenance Due Date Last Done Comments COLOGUARD (AGES 45-75) - COL ON CA SCREENING 1959 COLON MONITORING 1959 COLONOSCOPY - COLON CA SCREENING 1959 CT COLONOGRAPHY - COLON CA SCREENING 1959 Colorectal Cancer Screening 1959 FIT - COLON CA SCREENING 1959 FLEX SIG - COLON CA SCREENING 1959 LIPID TESTING 1959 HIV SCREENING 12/19/1974 HEPATITIS C SCREENING 12/15/1977 DTAP/TDAP/TD VACCINES (1 - Tdap) 12/19/1978 PNEUMOCOCCAL VACCINE 50+ (1 of 1 - PCV) 12/19/2009 ZOSTER VACCINE (1 of 2) 12/19/2009 COVID-19 VACCINE ( - 2023-2 5 season) 2024 DEPRESSION SCREENING 05/26/2024 INFLUENZA VACCINE (Season Ended) 2025 Respiratory Syncytial Virus (RSV) Vaccine Pt: or over 60 yrs (1 - 1-dose 75+ series) 12/19/2034 HEPATITIS B VACCINE Aged Out No longe r eligible based on patient's age to complete this topic HIB VACCINE Aged Out No longer eligi ble based on patient's age to complete this topic HPV VACCINE Aged Out No longer eligi ble based on patient's age to complete this topic MENINGOCOCCAL (Group B) VACC INE SHARED DECISION-MAKING Aged Out No longer eligibl e based on patient's age to complete this topic MENINGOCOCCAL GROUPS A/C/Y/W VACCINE Aged Out No longer eligible b ased on patient's age to complete this topic
--- OUTSIDE RECORDS SUMMARY | 2024-10-11 11:59 | XMS_ITS | Encounter Summary ---
Author Organization [facility] Healthcare Address [address] [place] [address] Care Team Providers Care Fermentation Scientist Name Role Phone Ivan Hemphill MD Primary Care Provider Gretchen Waldron MD Unavailable Henrique Dean MD Primary Care Provider George Murillo MD Unavailable [phone] Ivan Hemphill MD Unavailable [phone] Jhon Teresa DPM Unavailable [phone] Encounter Details Date Type Department Care Team (Late st Contact Info) Description 08/20/2022 Telephone [facility] [address] [facility] [address] [place] [address] Jaylin Gonzalez PSGT Social History Tobacco Use Types Packs/Day Years [...] or pharmacy Sometimes 07/30/2022 Social Connection and Isolation Panel [NHANES] A nswer Date Recorded In a typical week, how many times do you talk on the phone with family, friends, or neighbors? Patient declined 08/22/2022 How often do you get togethe r with friends or relatives? Patient declined 08/22/2022 How often do you attend adventism or episcopalian serv ices? Patient declined 08/22/2022 Do you belong to any clubs o r organizations such as adventism groups, unions, fraternal or athletic groups, or school groups? Patient declined 08/22/2022 How often do you attend meet ings of the clubs or organizations you belong to? Patient declined 08/22/2022 Are you , , di vorced, , never , or living with a partner? Patient declined 08/22/2022 AUDIT-C Answer Date Recorded Q1: How often [...] like food, housing, medical care, and heating? Patient declined 08/22/2022 PHQ-2 Answer Date Recorded PHQ-2 Total Score (If total score is 3 or more points, staff should administer the PHQ-9) 1 07/28/2022 Hunger Vital Sign Answer Date Recorded Within the past 12 months, y ou worried that your food would run out before you got the money to buy more. Patient declined Within the past 12 months, t he food you bought just didn't last and you didn't have money to get more. Patient declined PRAPARE - Transportation Answer Date Re corded In the past 12 months, has l ack of transportation kept you from medical appointments or from getting medications? Patient declined 08/22/2022 In the past 12 months, has l ack of transportation kept you from meetings, work, or from getting things needed for daily living? Patient declined 08/22/2022 Housing Stability Vital Sign Answer Larry e Recorded In the last 12 months, was t here a time when you were not able to pay the mortgage or rent on time? Patient refused 08/23/19 23 In the last 12 months, how many places have you lived? 0 08/22/2022 In the last 12 months, was t here a time when you did not have a steady place to sleep or slept in a senior living (including now)? 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 2-4 times a month 08/20/2022 9:41 PM Radha Umaña RN Q2: How many drinks containing alcohol do you have on a typical day when you are drinking? 1 or 2 08/20/2022 9:41 PM Radha Umaña RN Q3: How often do you have six or more drinks on one occasion? Less than monthly 08/20/2022 9:41 PM Radha Umaña RN documented as of this encounter Plan of Treatment Scheduled Procedures Name Priority Associated Diagnoses Date/Ti ca ESOPHAGOGASTRODUODENOSCOPY Open Access Iron deficiency anemia, unspecified iron deficiency anemia type Colon cancer screening COLONOSCOPY Open Access Iron deficiency anemia, unspecified iron deficiency anemia type Colon cancer screening documented as of this encounter Visit Diagnoses Not on filedocumented in this encounter Additional Health Concerns Infection Onset Date Last Indicated Resolved Time Rhino/Enterovirus 08/19/2022 08/19/2022 08/26/2022 3:05 AM CDT COVID19 02/02/2024 02/02/2024 02/14/2024 3:05 AM CDT COVID: Recovered Comment:Added based on recent COVID infection. 02/14/2024 02/20/2024 05/14/2024 3:[address] documented as of this encounter Care Teams Fermentation Scientist Relationship Specialty Start Date End Date Ivan Hemphill MD PCP - General Endocrinology Diabetes & Metabolism 07/31/22 09/16/22 Henrique Dean MD [address] [facility] [address] [place] [address] PCP - General Internal Medicine 09/17/22 Gretchen Waldron MD [address] [facility] [address] [place] [address] Medical Oncologist/Hand Screen Printer Medical Oncology 08/06/22 George Murillo MD [address] [facility] [address] [place] [address] Material Movers Pulmonary Disease 06/06/23 Ivan Hemphill MD [address] [facility] [address] [place] [address] Consulting Physician Endocrinology Diabetes & Metabolism 06/06/23 Jhon Teresa, DPM [address] [facility] [place] [address] Consulting Physician Podiatry 06/06/23 documented as of this encounter
--- OUTSIDE RECORDS SUMMARY | 2024-10-11 11:59 | XMS_ITS | Encounter Summary ---
Author Organization [facility] Address [address] [place] [address] Phone Care Team Providers Care Storage Administrator Name Role Phone Gretchen Waldron MD Unavailable Henrique Dean MD Primary Care Provider [phone] George Murillo MD Unavailable [phone] Ivan Hemphill MD Unavailable [phone] Jhon Teresa DPM Unavailable [phone] Encounter Details Date Type Department Care Team (Latest Contact Info) Description 11/15/2022 Orders Only [facility] Scanning, Provider Social History Tobacco Use Types [...] often do you attend chur ch or judaism services? Never 09/04/2022 Do you belong to any clubs o r organizations such as jainism groups, unions, fraternal or athletic groups, or [...] place to sleep or slept in a [facility] (including now)? No 09/04/2022 Personal Safety Answer Date Recorded Have you ever been in or are you currently in a harmful physical or emotional relationship or is someone making you feel afraid or unsafe? 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 Gender Identity Not on file Sexual Orientation [...] Date/Time Associated Diagnosis Comments SCAN - RADIOLOGY/IMAGING 11/15/2022 SCAN - LABS 11/15/2022 documented in this encounter Results * SCAN - LABS (11/15/2022) us Provider Scanning Final Result * SCAN - RADIOLOGY/IMAGING (11/15/2022) Anatomical Region Laterality Modality Other us Provider Scanning Edited Result - Final documented in this encounter Visit Diagnoses Not on filedocumented in this encounter Additional Health Concerns Infection Onset Date Last Indicated Resolved Time COVID19 02/02/2024 02/02/2024 02/14/2024 3:05 AM CDT COVID: Recovered Comment:Added based on recent COVID infection. 02/14/2024 02/20/2024 05/14/2024 3:[address] documented as of this encounter Care Teams Storage Administrator Relationship Specialty Start Date End Date Henrique Dean MD [address] [facility] [address] [place] [address] PCP - General Internal Medicine 09/17/22 Gretchen Waldron MD [address] [facility] [address] [place] [address] Medical Oncologist/Division Roadmaster Medical Oncology 08/06/22 George Murillo MD [address] [facility] [address] [place] [address] Assembly Instructions Writer Pulmonary Disease 06/06/23 Ivan Hemphill MD [address] [facility] [address] [place] [address] Consulting Physician Endocrinology Diabetes & Metabolism 06/06/23 Jhon Teresa, GRAY [address] [facility] [place] [address] Consulting Physician Podiatry 06/06/23 documented as of this encounter
--- OUTSIDE RECORDS SUMMARY | 2024-10-11 12:00 | XMS_ITS | Clinical Summary ---
Author Organization [facility] Virtual Care Address [address] [place] [phone] Phone Care Team Providers Care Audio Video Technician Name Role Phone KandikeerthiGretchen MD Unavailable Henrique Dean MD Primary Care Provider [phone] George Murillo MD Unavailable [phone] Ivan Hemphill MD Unavailable Jhon Teresa DPM Unavailable [phone] Allergies No known active allergies Medications omeprazole (PriLOSEC) 20 mg capsule daily. Active uohsvahe-ovl-BB-ly copen-lutein 0.4 mg-300 mcg- 250 mcg tablet 1 tablet 020 Active ALPRAZolam (XANAX) 0.25 mg tablet Take 1 tablet (0.25 mg total) by mouth 3 (three) times a day as needed for anxiety 30 tablet 1 024 Active levETIRAcetam (KEPPRA) 750 mg tablet Take one tablet by mouth twice daily 60 tablet 024 Active telmisartan-hydroc hlorothiazid (MICARDIS HCT) 80-25 mg per tablet Take 1 tablet by mouth daily 30 tablet 024 Active cloNIDine (CATAPRES) 0.2 mg tablet Take 1 tablet by mouth twice daily 60 tablet 024 Active carvediloL (COREG) 25 mg tablet Take 1 tablet by mouth twice daily 60 tablet Active acetaminophen (TYLENOL) 325 mg tablet Take 2 tablets (650 mg total) by mouth every 4 (four) hours as needed for pain 90 tablet 1 Active metFORMIN (GLUCOPHAGE) 500 mg tablet Take 1 tablet (500 mg total) by mouth daily with breakfast 90 tablet 3 024 Active amLODIPine (NORVASC) 5 mg tablet Take 1 tablet by mouth twice daily 60 tablet 11 025 Active fluticasone-umecli din-vilanter (Trelegy Ellipta) 100-62.5-25 mcg inhaler INHALE 1 PUFF BY MOUTH DAILY 60 each 3 025 Active atorvastatin (LIPITOR) 40 mg tablet Take 1 tablet by mouth daily 30 tablet 11 025 Active albuterol HFA (PROVENTIL HFA,VENTOLIN HFA,PROAIR HFA) 90 mcg/actuation inhaler Inhale 2 puffs by mouth every 6 hours as needed for wheezing 8.5 each Active Farxiga 10 mg tablet TAKE 1 TABLET BY MOUTH DAILY 90 tablet 3 Active HYDROcodone-acetam inophen (NORCO) 5-325 mg per tabletIndications: Pain Take 1 tablet by mouth every 6 (six) hours as needed for pain 28 tablet 025 Active flash glucose sensor (FreeStyle Irena 2 Sensor) kit Will use 2 sensors per month. 2 kit 023 2024 Discontinued(T herapy completed) atorvastatin (LIPITOR) 40 mg tablet Take 1 tablet by mouth daily 90 tablet 3 024 2024 Discontinued albuterol HFA (PROVENTIL HFA,VENTOLIN HFA,PROAIR HFA) 90 mcg/actuation inhaler Inhale 2 puffs by mouth every 6 hours as needed for wheezing 8.5 each 024 2024 Discontinued guaiFENesin 1,200 mg tablet extended release 12hr Take 1 tablet by mouth 2 (two) times a day 60 tablet 1 024 2024 Discontinued(T herapy completed) Farxiga 10 mg tablet Take 1 tablet (10 mg total) by mouth daily 30 tablet 5 024 2024 Discontinued pregabalin (LYRICA) 25 mg capsuleIndications :Lumbar postlaminectomy syndrome Take 2 capsules (50 mg total) by mouth nightly Start with 1 tab qhs x1wk, increase 2 tabs qhs 60 capsule 3 024 2024 Discontinued(T herapy completed) meloxicam (MOBIC) 15 mg tablet Take 1 tablet by mouth daily 30 tablet 11 025 2024 Discontinued(T herapy completed) HYDROcodone-acetam inophen (NORCO) 5-325 mg per tabletIndications: Pain Take 1 tablet by mouth every 6 (six) hours as needed for pain 28 tablet 025 2024 Discontinued(R eorder) Active Problems Patient Care Coordination No te Formatting of this note migh t be different from the original. Kat Becerra NP 07/31/2022 14:52 This is a 61-year-old presenting to the clinic today for follow-up after right chest tube placement by you on 07/11/2022 for an empyema. He presented back to [facility] on 07/25/2022-07/29/2022 with worsening shortness of breath and cough. He underwent a CT PE chest which was negative for PE, but was concerning for worsening pneumonia. At time of hospitalization, there were no surgical options that you were able to provide. He was initially referred to us by Dr. Jhon Casillas for malignant neoplasm of the upper lobe of the right lung and underwent a bronchoscopy, thoracotomy, and decortication of the lung on 07/11/2022. He has a medical history significant for HTN, hyperlipidemia, type 2 diabetes mellitus, primary cancer of the right upper lobe of the lung, anemia, obstructive sleep apnea, and empyema. Per chart review, he is a former smoker. Since hospitalizations, patient has continued to be followed by home health. No follow-up imaging is available since patient discharged from the hospital on 07/29/2022 at which point he had a chest x-ray that revealed right peripheral catheter with tip in the expected location of the superior vena cava. Unchanged complete opacification of the right hemithorax likely representing component of pneumonia and empyema superimposed on atelectasis. Unchanged lucency overlying the medial right hemithorax favored to represent central cavitation. Left lung is clear. No left pleural effusion. Cardiac and mediastinal silhouette is partially obscured. Problem Noted Date Diagnosed Date Chronic pain syndrome 10/06/2024 Assessment & Plan (10/06/2024 11:04 AM CDT): Hx of spinal fusion at multiple levels Continue [place] PRN Dr. Gamble # given to schedule for f/u Chronic midline low back pain without sciatica 1 Assessment & Plan (06/11/2024 12:26 PM RELIABILITY TECHNICIAN): Continue p.r.n. hydrocodone. Assessment & Plan (03/12/2024 10:07 AM CDT): Patient with chronic back discomfort which she has been apparently minimizing over the course of the last unknown number of months. He has had multiple previous surgeries. He now is having symptoms with balance and walking and numbness which are concerning for myelomalacia. No urinary symptoms. He also has a history of seizures which eliminates the use of tramadol, and he has chronic kidney disease related to his diabetes and has been advised not to take NSAIDs. Will prescribe a limited number of hydrocodone while we are evaluating this. Will refer to pain management and also to Neurosurgery. Will check a spine series x-rays. Memory loss 11/22/2023 Assessment & Plan (11/22/2023 9:43 PM CDT): Refer to memory clinic. Iron deficiency anemia 11/21/2023 Assessment & Plan (07/23/2024 10:58 AM RELIABILITY TECHNICIAN): Had EGD/colo with no cause of bleeding. Continue iron supplement. Will need repeat colo in Mar 2025. Assessment & Plan (03/23/2024 9:28 AM CDT): EGD and colonoscopy scheduled. Assessment & Plan (12/08/2023 3:24 PM CDT): Markedly better on iron. He has been scheduled for EGD and colon Assessment & Plan (11/22/2023 9:43 PM CDT): Ordered EGD and colo to rule out GI blood loss. Continue iron supplement. Gastroesophageal reflux disease 07/18/2023 Assessment & Plan (07/18/2023 2:36 PM RELIABILITY TECHNICIAN): Can stop PPI and switch to H2 dianna. Pulmonary emphysema 06/06/2023 Assessment & Plan (06/11/2024 12:26 PM RELIABILITY TECHNICIAN): Doing better now. Cough is improved Seizure disorder 11/20/2022 Assessment & Plan (10/06/2024 11:03 AM CDT): No seizure activity Continue keppra Assessment & Plan (12/08/2023 3:23 PM CDT): None recently doing well on Keppra Assessment & Plan (07/18/2023 2:34 PM RELIABILITY TECHNICIAN): Continue Keppra. Assessment & Plan (06/13/2023 11:13 AM RELIABILITY TECHNICIAN): Doing well on Keppra 750mg BID Assessment & Plan (03/17/2023 2:14 PM CDT): Keppra dose was recently increased. Assessment & Plan (11/20/2022 10:35 AM CDT): Since this 1st and only episode he has been feeling reasonably well. Is on Keppra presently. Neurologic exam is unremarkable today. I discussed with him the need for MRI brain in the indeed this has already been ordered by Dr. Waldron. Will also order EEG. Consider possible lumbar puncture and I will message his oncologist about this possibility. Other hyperlipidemia 07/31/2022 Assessment & Plan (07/23/2024 10:57 AM RELIABILITY TECHNICIAN): Due for lipid check. Continue atorvastatin. Assessment & Plan (03/23/2024 9:29 AM CDT): At goal on current therapy. Assessment & Plan (11/22/2023 9:42 PM CDT): At goal on current therapy. Assessment & Plan (07/18/2023 2:33 PM RELIABILITY TECHNICIAN): Check labs. Continue statin. Assessment & Plan (03/17/2023 2:15 PM CDT): At goal on current therapy. Assessment & Plan (09/04/2022 2:06 PM CDT): -Continue home atorvastatin 40 mg q day Assessment & Plan (09/03/2022 8:41 AM CDT): --Continue home atorvastatin 40 mg q day Assessment & Plan (07/31/2022 2:15 PM RELIABILITY TECHNICIAN): At goal on current therapy. Type 2 diabetes mellitus 07/12/2022 Assessment & Plan (10/06/2024 11:01 AM CDT): A1c 6.8% Continue Farxiga 10mg and metformin XR 500mg daily Labs UTD Assessment & Plan (07/23/2024 11:09 AM RELIABILITY TECHNICIAN): A1c at goal on current therapy. Will repeat microalbumin since he is now on Farxiga. He will schedule an eye exam. Encourage good foot care given his neuropathy. Assessment & Plan (06/11/2024 12:26 PM RELIABILITY TECHNICIAN): A1c at target Assessment & Plan (03/23/2024 9:26 AM CDT): A1c is now at goal after adding Farxiga. This is also helping for his microalbuminuria. Continue metformin 500 mg daily as well. Recommend annual eye exams. Assessment & Plan (12/08/2023 3:23 PM CDT): Doing well followed by Endocrine Assessment & Plan (11/22/2023 9:42 PM CDT): A1c above goal. Add Farxiga 10 mg daily, as this will also benefit his microalbuminuria. Discussed efficacy and possible side effects. BMP to be drawn on 12/07 with oncology. Continue metformin. Assessment & Plan (07/18/2023 2:33 PM RELIABILITY TECHNICIAN): A1c near goal. Continue metformin 500 mg daily and restart CGM if covered. Higher metformin doses caused hypoglycemia. Recommend routine eye exams. He has been referred to podiatry for his neuropathy. Assessment & Plan (03/17/2023 2:16 PM CDT): A1c at goal. I think he does need a small dose of metformin to maintain an A1c of < 7%. Resume metformin at a dose of 500 mg daily. Assessment & Plan (11/05/2022 12:40 PM CDT): A1c above goal. Resume metformin 1000 mg BID. RTC in 4 months. Assessment & Plan (09/04/2022 2:05 PM CDT): A1c 6.0% in July 2022. Diet controlled as an outpatient - Monitor blood glucose levels on daily BMPs. - QID glucose checks and sliding scale insulin Assessment & Plan (09/03/2022 10:00 AM CDT): A1c 6.0% in July 2022. Diet controlled as an outpatient --Monitor blood glucose levels on daily BMPs. If elevated, will order QID glucose checks and sliding scale insulin Assessment & Plan (07/31/2022 2:16 PM RELIABILITY TECHNICIAN): Hypoglycemic recently requiring him to stop his glimepiride completely. Will give him Irena CGM today and see if we can get this covered long-term. For now, remain off glimepiride and take metformin as needed. Recommend yearly eye exams. Assessment & Plan (07/12/2022 7:58 AM RELIABILITY TECHNICIAN): - ADA diet - SSI EZEQUIEL (obstructive sleep apnea) 07/11/2022 Assessment & Plan (09/04/2022 2:01 PM CDT): - Continue nocturnal CPAP while inpatient Assessment & Plan (09/03/2022 10:02 AM CDT): --Continue nocturnal CPAP while inpatient Benign essential hypertension 03/11/2022 Assessment & Plan (10/06/2024 11:02 AM CDT): At goal on: Telmisartan-HCTZ 80/25mg daily Amlodipine 5mg daily Carvedilol 25mg BID Clonidine 0.2mg BID Assessment & Plan (07/23/2024 10:57 AM RELIABILITY TECHNICIAN): At goal on current therapy. Assessment & Plan (03/23/2024 12:26 PM CDT): BP low-normal today, although he states he has not eaten and had much to drink today. Denies orthostasis. Continue current regimen. Assessment & Plan (12/08/2023 3:23 PM CDT): BP at target continue medication for target directed therapy Assessment & Plan (11/22/2023 9:41 PM CDT): At goal on current therapy. Assessment & Plan (07/18/2023 2:32 PM RELIABILITY TECHNICIAN): At goal on current therapy. Assessment & Plan (03/17/2023 2:14 PM CDT): At goal on current therapy. Assessment & Plan (09/04/2022 2:05 PM CDT): - Continue home medications: amlodipine 5 mg BID, Coreg 25 mg BID, clonidine 0.2 mg BID. Losartan 100 and HCTZ 25 substituted for telmisartan-HCTZ 80-25 (non- formulary at [facility]) Assessment & Plan (09/03/2022 8:42 AM CDT): --Continue home medications: amlodipine 5 mg BID, Coreg 25 mg BID, clonidine 0.2 mg BID. Losartan 100 and HCTZ 25 substituted for telmisartan-HCTZ 80-25 (non- formulary at [facility]) Assessment & Plan (07/31/2022 2:15 PM RELIABILITY TECHNICIAN): At goal on current therapy. Assessment & Plan (07/14/2022 10:02 AM RELIABILITY TECHNICIAN): - continue home coreg, clonidine - restart home norvasc Malignant neoplasm of upper lobe of right lung ( CMS/HCC) 08/14/2015 Assessment & Plan (07/18/2023 2:34 PM RELIABILITY TECHNICIAN): Per oncology. Assessment & Plan (09/04/2022 2:00 PM CDT): Stage IIIA (T3N1M0) SCC of the RUL who was previously treated with concurrent chemoradiation (w/ carboplatin / paclitaxel) followed by adjuvant carboplatin / paclitaxel in 11/2015 [facility] # [id number]. Follows with Dr. Gretchen Waldron. He has completed 5 years of active surveillance and is currently managed with yearly low-dose CT. Last seen in Onc Clinic in November 2021. - outpt follow up as indicated Assessment & Plan (09/03/2022 8:40 AM CDT): Stage IIIA (T3N1M0) SCC of the RUL who was previously treated with concurrent chemoradiation (w/ carboplatin / paclitaxel) followed by adjuvant carboplatin / paclitaxel in 11/2015 on protocol [facility] # [id number]. Follows with Dr. Gretchen Waldron. He has completed 5 years of active surveillance and is currently managed with yearly low-dose CT. Last seen in Onc Clinic in November 2021 Assessment & Plan (07/31/2022 1:52 PM RELIABILITY TECHNICIAN): S/p CMM INSPECTOR. Squamous cell carcinoma of lung 08/07/2015 Assessment & Plan (12/08/2023 3:23 PM CDT): Stable followed by Pulmonary and Oncology Resolved Problems Problem Noted Date Diagnosed Date Resolved Date Shortness of breath 08/24/2024 10/07/19 25 Pneumonia of left lower lobe due to infectious organism 07/23/2024 10/06/2024 Assessment & Plan (07/23/2024 11:10 AM RELIABILITY TECHNICIAN): Clinically improved after antibiotics. Will repeat CXR to check for radiographic resolution. Give Prevnar 20 today if we have it. Collapse of right lung 04/05/202410/06 Neck pain 03/12/2024 10/06/2024 Assessment & Plan (03/12/2024 10:07 AM CDT): See discussion concerning back pain. Reflexes are generally absent. Concern for spinal stenosis possibly diffuse. Concern for myelomalacia. COVID-19 02/03/2024 10/06/2024 Colon cancer screening 11/21/202312/03 Colon cancer screening 11/21/202310/06 Hemoptysis 09/05/2023 10/06/2024 Assessment & Plan (02/04/2024 12:00 PM CDT): Mr. Payne is a 63 M PMHx of [id number] COPD (PFTs 11/2023, FEV1 73), Hx of Stage IIIA squamous cell carcinoma s/p chemotherapy/radiation c/b chronic collapse of R lung, HTN, seizure disorder, T2DM, EZEQUIEL (compliant with CPAP), and Hx S. Hominis R sided emphyema (06/2022) s/p decortication admitted 02/02/24 for 3 day duration of hemoptysis in the setting of Covid-19 infection. Pulmonary consulted 02/04/24 for evaluation and management of hemoptysis. The etiology of his hemoptysis, which has began to resolve without any major intervention, is likely his recent Covid-19 infection. It is likely to be secondary to progression/relapse of his Stage IIIA squamous cell carcinoma as this has remained stable on imaging since completion of treatment in 11/2015 and he is not have concerning symptoms of relapse aside from the hemoptysis. Recommendations: - Supportive care for Covid-19 infection, as per primary team - Recommend discontinuation of aspirin 81mg daily. Patient was previously taking NSAIDs, which he was also told to discontinue. - Prescribe a course of oral antibiotics for bronchitis, likely Augmentin. - Consider walking O2 assessment prior to discharge to ensure the patient does not have exertional hypoxemia, requiring supplemental oxygen - Continue home pulmonary medication regimen: Albuterol HFA PRN, Trelegy 100-62.5-25 - Pulmonary will sign off. He has scheduled follow up in the [facility]. We will schedule folllow up in [facility] with Emerald Chew. Assessment & Plan (09/05/2023 9:21 AM CDT): Exam is reassuring and has resolved Daily anti-histamine use for weather changes Encouraged regular rescue inhaler use and continue Trelegy Cough 07/18/2023 09/05/2023 Assessment & Plan (07/18/2023 2:35 PM RELIABILITY TECHNICIAN): No wheezes or rhonchi to suggest COPD exacerbation today. Cough likely related to chronic lung changes (we reviewed his CXR together). Continue symptomatic treatment and Trelegy. Lesion of nose 06/13/2023 09/05/2023 Assessment & Plan (06/13/2023 11:13 AM RELIABILITY TECHNICIAN): Mupirocin TID COPD exacerbation 05/27/2023 12/04/2023 Assessment & Plan (06/13/2023 11:12 AM RELIABILITY TECHNICIAN): Resolved, doing wel Assessment & Plan (05/27/2023 11:05 AM RELIABILITY TECHNICIAN): Doxy BID x 10d Prednisone 40mg x 5d CXR Chest pain 03/17/2023 05/27/2023 Assessment & Plan (03/17/2023 2:15 PM CDT): R/o CAD with stress test. Toe ulcer, left, with fat layer exposed 03/17/2023 12/05/2023 Assessment & Plan (03/17/2023 2:16 PM CDT): No signs of active infection. Will refer to podiatry. Bacteremia 09/04/2022 10/01/2022 Assessment & Plan (09/06/2022 11:05 AM CDT): - s/p empiric treatment for possible gram positive and gram neg bacteremia. Cultures on admission with 1/2 bottles with GPC. - started on vanc/cefe empirically. Now off after neg cultures x 48 hrs - held home augmentin while on broad spectrum abx, restart on dc Herpes zoster without complication 09/03/2022 10/01/2022 Assessment & Plan (09/04/2022 2:09 PM CDT): P/w 4 days of left-sided shoulder pain and 2 days of painful rash. Exam notable for erythematous papules along the T3 dermatome with scattered fluid-filled blisters; no crusted lesions. No additional dermatomes involved; rash does not cross the midline. No ocular, otic or neurologic symptoms. His presentation is not concerning for disseminated disease - VZV PCR pending - IV acyclovir 750 mg q 8 hours (09/03-) -> po valacyclovir 1g TID x 7 days. - Pain relief with PO APAP (first line) and IV morphine (2nd line) - Contact & airborne precautions Assessment & Plan (09/03/2022 10:07 AM CDT): Patient presents with 4 days of left-sided shoulder pain and 2 days of painful rash. Exam notable for erythematous papules along the T3 dermatome with scattered fluid-filled blisters; no crusted lesions. No additional dermatomes involved; rash does not cross the midline. No ocular, otic or neurologic symptoms. His presentation is not concerning for disseminated disease --VZV PCR ordered --IV acyclovir 750 mg q 8 hours (09/03- ) --Pain relief with PO APAP (first line) and IV morphine (2nd line) --Contact precautions Tachycardia 09/03/2022 10/01/2022 Assessment & Plan (09/04/2022 2:06 PM CDT): HR in the 110s-120s in the ED. DDx includes pain, sepsis, PE - CT PE in the ED neg for PE - Continue to monitor with q 4 hour vital signs Assessment & Plan (09/03/2022 9:10 AM CDT): HR in the 110s-120s in the ED. DDx includes pain, sepsis, PE --CT PE ordered in the ED, not yet performed --Continue to monitor with q 4 hour vital signs Pneumonia, bacterial 08/19/2022 023 Assessment & Plan (09/13/2022 10:30 AM CDT): - Remains on PO Augmentin and is tolerating well. Last imaging continues to show sequale of R lung infection but no worsening of infectious findings. He denies fevers or chills. Continues to have shortness of breath and cough but this is slightly improving per patient. He overall feels that he is gradually improving. - Discussed with patient and his that at this point we do not feel that continuing antibiotics would be beneficial. He has significant damage to his right lung consolidation and volume loss to entire lung. He has been on an extended course of antibiotics for 2 months at this point. Given his underlying lung disease he will be at increased risk of infection but continuing fci antibiotics at this point is likely to cause more harm that benefit. I asked them both to monitor closely for any signs or symptoms of worsening infection and to reach out to ID with any concerns. - Follow up with thoracic surgery as scheduled. He reports he will also be following with a risk and insurance consultant. - We discussed that his exercise tolerance will hopefully improve over time but this is likely to be a slow improvement given his lung disease. He may benefit from physical therapy and/or pulmonary rehab in the future. Hyponatremia 07/11/2022 10/01/2022 Assessment & Plan (09/04/2022 2:01 PM CDT): Na 132 on admission (baseline is in the low 130s). Likely 2/2 SIADH - Continue home salt tablets 1,000 mg TID - Continue to monitor serum sodium on daily lab work Assessment & Plan (09/03/2022 8:41 AM CDT): Na 132 on admission (baseline is in the low 130s). Likely 2/2 SIADH --Continue home salt tablets 1,000 mg TID --Continue to monitor serum sodium on daily lab work Assessment & Plan (07/31/2022 2:16 PM RELIABILITY TECHNICIAN): Continue salt tabs. He has labs scheduled for Friday. Assessment & Plan (07/18/2022 11:11 AM RELIABILITY TECHNICIAN): Na 124 upon admission. Likely 2/2 SIADH in the setting of infection - 130 this morning - renal consulted and has signed off - increase salt tabs back to TID - see last renal note for salt tab taper - Total fluid restriction < 1.5L Leukocytosis 07/11/2022 10/01/2022 Assessment & Plan (07/12/2022 7:49 AM RELIABILITY TECHNICIAN): R/T empyema - see empyema section Anemia 07/11/2022 06/06/2023 Assessment & Plan (07/11/2022 10:35 AM RELIABILITY TECHNICIAN): Anemia of chronic disease. - no s/s of bleeding - transfuse to keep hgb >7 - T&S active History of right-sided empyema 07/10/2022 12/04/2023 Assessment & Plan (07/18/2023 2:34 PM RELIABILITY TECHNICIAN): Follows with pulmonary. Assessment & Plan (10/01/2022 12:56 PM CDT): Cardiopulmonary Rehab referral to [facility] We discussed nutrient dense foods Assessment & Plan (09/04/2022 2:00 PM CDT): S/p OR on 07/11/22 for right thoracotomy, bronchcosopy and decortication ([facility]) with cultures growing Staph hominis. Lobectomy was thought to be too high risk at that time, and 2 chest tubes were placed at the OSH and removed on 07/16/22. Of note, patient was recently admitted to [facility] from 08/19 to 08/22 due to concerns for pneumonia (CT showed complete opacification and volume loss of the right hemithorax); ID was consulted and felt that his CT findings were likely 2/2 Rhino/enterovirus rather than bacterial pneumonia and recommended discharging patient on his home suppressive Augmentin with outpatient ID and Thoracic Surgery follow up. The patient denies dyspnea or respiratory symptoms at bedside - hold Augmentin while on vanc/cefe - ID Clinic follow up scheduled for 09/12/22 - Thoracic Surgery follow up scheduled for 09/17/22 (Dr. Luis Figueroa) Assessment & Plan (09/03/2022 10:02 AM CDT): S/p OR on 07/11/22 for right thoracotomy, bronchcosopy and decortication ([facility]) with cultures growing Staph hominis. Lobectomy was thought to be too high risk at that time, and 2 chest tubes were placed at the OSH and removed on 07/16/22. Of note, patient was recently admitted to [facility] from 08/19 to 08/22 due to concerns for pneumonia (CT showed complete opacification and volume loss of the right hemithorax); ID was consulted and felt that his CT findings were likely 2/2 Rhino/enterovirus rather than bacterial pneumonia and recommended discharging patient on his home suppressive Augmentin with outpatient ID and Thoracic Surgery follow up. The patient denies dyspnea or respiratory symptoms at bedside --Continue Augmentin --ID Clinic follow up scheduled for 09/12/22 --Thoracic Surgery follow up scheduled for 09/17/22 (Dr. Luis Figueroa) Assessment & Plan (08/16/2022 3:52 PM CDT): - Remains on ceftriaxone and flagyl. Feels he has had some slight improvement in shortness of breath since hospital discharge. No issues with antibiotics. No acute distress on exam today. O2 saturation 95% on room air. CT from 08/01 shows continued heavy consolidation and small pleural effusion. - D/c IV ceftriaxone and PO flagyl. Start Augmentin 875-125 mg PO BID until next ID visit in 4 weeks. Will repeat chest CT prior to next ID visit. - Will reach out to thoracic surgery to discuss case as it is unclear if lung findings on imaging are due to ongoing infection or stenosis of R bronchus and/or adhesions/sclerosis that could be preventing lung re-inflation. - Discussed with patient the rational for treatment, culture results, risk of recurrent infection, signs/symptoms of recurrent infection, and to contact ID clinic with any questions or concerns Assessment & Plan (07/31/2022 2:17 PM RELIABILITY TECHNICIAN): Follow up with ID and thoracics. Has CT scheduled tomorrow. Assessment & Plan (07/18/2022 11:11 AM RELIABILITY TECHNICIAN): empyema superimposed on a chronic and treated lung cancer. - WBC count down to 11 - S/P OR for thoracotomy, decortication - ID consulted: ceftriaxone 2g daily, flagyl 500mg TID. probably ok to transition to PO antibiotics at the time of discharge - need final DC recs - OR cultures prelmin for rate staph hominis - susceptibilities pending Need for prophylactic vaccin ation and inoculation against influenza 06/11/2018 10/01/2022 Cough 09/25/2017 10/01/2022 Encounters Date Type Department Care Team Description 10/06/2024 10:45 AM CDT Office Visit [facility] [address] [facility] [address] [place] [address] Priya Long NP Type 2 diabetes mellitus without complication, without long-term current use of insulin (HCC) (Primary Dx); Benign essential hypertension; Seizure disorder (HCC); Chronic pain syndrome 08/30/2024 Telephone [facility] ([facility] - [facility] [address] [facility] 11th [place] [address] [place] [phone] Matilde Collins, 08/24/2024 8:00 AM CDT Office Visit [facility] [address] [facility] [address] 5 [place] [address] Justin Pederson MD Chronic obstructive pulmonary disease, unspecified COPD type (HCC) (Primary Dx); Chronic sinusitis, unspecified location; Collapse of right lung; Malignant neoplasm of upper lobe of right lung (CMS/HCC) (HCC) 08/24/2024 7:11 AM CDT - 08/24/2024 11:59 PM CDT Hospital Encounter [facility] Lab [address] [facility] [address] 1, [address] [place] [address] Shortness of breath Discharge Disposition: Discharge to home or self care 08/12/2024 Telephone [facility] [address] [place], [place] [address] [place] [address] Henrique Dean MD Cough 07/23/2024 2:00 PM RELIABILITY TECHNICIAN Lab [facility] [address] [place] [phone] Other hyperlipidemia; Type 2 diabetes mellitus without complication, without long-term current use of insulin ([facility]) 07/23/2024 11:16 AM RELIABILITY TECHNICIAN - 07/23/2024 11:59 PM RELIABILITY TECHNICIAN Hospital Encounter [facility] [address] [place] [address] Ivan Hemphill MD Pneumonia of left lower lobe due to infectious organism Discharge Disposition: Discharge to home or self care 07/23/2024 10:45 AM RELIABILITY TECHNICIAN Office Visit [facility] [address] [place] [phone] Ivan Hemphill MD Pneumonia of left lower lobe due to infectious organism (Primary Dx); Type 2 diabetes mellitus without complication, without long-term current use of insulin ([facility]); Iron deficiency anemia, unspecified iron deficiency anemia type; Other hyperlipidemia; Benign essential hypertension 07/23/2024 Results Follow-Up [facility] [address] [place] [phone] Ivan Hemphill MD Lipid panel, Albumin Creatinine Ratio, Urine, XR Chest Pa Lateral 2 Views from Last 3 Months Immunizations Immunization Administration Dates Next Due Influenza, Quadrivalent, Samanta l Culture-based MDCK, Preservative Free, Antibiotic Free, Intramuscular 03/01/2021,06/11/2018 Influenza, Quadrivalent, Spl it, Preservative Free, Intramuscular 03/11/2022 Influenza, Trivalent, Cell C ulture-based MDCK, Preservative Free, Antibiotic Free, Intramuscular 04/05/2024 Influenza, Unspecified 03/24/2023 [employer] ([employer]) SARS-CoV-2 Vaccination 10/11/2020 Pfizer SARS-CoV-2 Monovalent Vaccination (12+ Yrs) PENA-READY TO USE 10/10/2021 Pneumococcal Conjugate Pcv20 07/23/2024 Pneumococcal Polysaccharide PPV23 01/25/2020 TD Preservative Free 11/10/2020 ZOSTER Recombinant 10/10/2021,10/02/2021, 021 Surgical History Surgery Date Site/Laterality Comments PORT PLACEMENT CHEST >5 YEARS 09/06/2015 N/A SPINAL FUSION L1-L4 20 year ago CERVICAL FUSION 05/26/1999 - 05/25/2000 COLONOSCOPY UPPER GASTROINTESTINAL ENDOSCOPY LUNG SURGERY Right FL UPPER GI AIR CONTRAST W KUB 06/08/2024 Bilateral Medical History Medical History Date Comments PONV (postoperative nausea and vomiting) Hyperlipidemia Hypertension COPD (chronic obstructive pulmonary disease) (HC C) Cancer (HCC) Seizures (HCC) History of right-sided empyema 07/10/2022 Hyperlipidemia 07/31/2022 COPD exacerbation (HCC) 05/27/2023 Hemoptysis 09/05/2023 Colon cancer screening 11/21/2023 Type 2 diabetes mellitus (HCC) Lung cancer (HCC) see's Dr. Joan goode Family History Medical History Relation Name Comments Diabetes Father Early Father Hypertension Father Diabetes Mother Early Mother Hypertension Mother Cancer Other Drug abuse Other Drug abuse Sister Early Sister Kidney disease Sister Relation Name Status Comments Father Mother Other Sister Social History Tobacco Use Types Packs/Day Years Used Date Smoking Tobacco: Former Smokeless Tobacco: Never Tobacco Cessation:Counseling Given: Not Answered OASIS D0700: Social Isolation Answer Da te [...] often do you attend chur ch or jewish services? Never 09/04/2022 Do you belong to any clubs o r organizations such as uatsdin groups, unions, fraternal or athletic groups, or school groups? No 09/04/2022 How often do you attend meet ings of the clubs or organizations you belong to? Never 09/04/2022 Are you , , di vorced, , never , or living with a partner? 09/04/2022 AUDIT-C Answer Date Recorded Q1: How often do you have a drink containing alc ohol? 2-3 times a week 05/07/2024 Q2: How many drinks containi ng alcohol do you have on a typical day when you are drinking? 1 or 2 05/07/2024 Q3: How often do you have si x or more drinks on one occasion? Never 05/07/2024 Overall Financial Resource Strain (CARDIA) Answe r [...] place to sleep or slept in a mcc (including now)? No 09/04/2022 Personal Safety Answer Date Recorded Have you ever been in or are you currently in a harmful physical or emotional relationship or is someone making you feel afraid or unsafe? Denies 04/02/2024 Sex and Gender Information Value Date Recorded Sex Assigned at Not on file Legal Sex Male 4:05 PM RELIABILITY TECHNICIAN Gender Identity Not on file Sexual Orientation Not on file Obstetrics History Last Filed Vital Signs Vital Sign Reading Time Taken Comments Blood [id number]|2024-10-11 16:09:00|2024-10-11 16:09:00|XMS_ITS|BKG DACOLLINON|External Medical Summaries|[id number]|" Encounter Summary Created on: October 11, 2024 Marco Antonio Payne : 1960 Sex: Male Author Organization [facility] Address [address] [place] [address] Phone Care Team Providers Care Audio Video Technician Name Role Phone Gretchen Waldron MD Unavailable Henrique Dean MD Primary Care Provider [phone] George Murillo MD Unavailable [phone] Ivan Hemphill MD Unavailable [phone] Jhon Teresa DPM Unavailable Encounter Details Date Type Department Care Team [...] often do you attend chur ch or jewish services? Never 09/04/2022 Do you belong to any clubs o r organizations such as uatsdin groups, unions, fraternal or athletic groups, or [...] place to sleep or slept in a mcc (including now)? No 09/04/2022 Personal Safety Answer Date Recorded Have you ever been in or are you currently in a harmful physical or emotional relationship or is someone making you feel afraid or unsafe? Denies 09/03/2022 Sex and Gender Information Value Date Recorded Sex Assigned at Not on file Legal Sex Male 4:05 PM RELIABILITY TECHNICIAN Gender Identity Not on file Sexual Orientation [...] documented as of this encounter Care Teams Audio Video Technician Relationship Specialty Start Date End Date Henrique Dean MD [address] [facility] [address] [place] [address] PCP - General Internal Medicine 09/17/22 Gretchen Waldron MD [address] [facility] [address] [place] [address] Medical Oncologist/Cost Estimating Engineer Medical Oncology 08/06/22 George Murillo MD [address] [facility] [address] [place] [address] Machine Repairman Pulmonary Disease 06/06/23 Ivan Hemphill MD [address] [facility] [address] [place] [address] Consulting Physician Endocrinology Diabetes & Metabolism 06/06/23 Jhon Tersea, GRAY [address] [facility], [address] [place] [address] Consulting Physician Podiatry 06/06/23 documented as of this encounter "
--- OUTSIDE RECORDS SUMMARY | 2024-10-11 12:00 | XMS_ITS | Referral Summary ---
Author Organization [facility] Virtual Care Address [address] [place] [address] Phone Care Team Providers Care Canvas Worker Name Role Phone Kandikeerthi Gretchen Packer MD Unavailable Henrique Dean MD Primary Care Provider George Murillo MD Unavailable [phone] Ivan Hemphill MD Unavailable Jhon Teresa DPM Unavailable Encounters Date Type Department Care Team Description 10/06/2024 10:45 AM CDT Office Visit [facility] [address] [place] [address] Priya Long NP Type 2 diabetes mellitus without complication, without long-term current use of insulin (HCC) (Primary Dx); Benign essential hypertension; Seizure disorder (HCC); Chronic pain syndrome 08/30/2024 Telephone [facility] [address] [facility] Advanced Medicine 11th [place] [address] [place] [address] Dennis MatildeMS clarisa 08/24/2024 7:11 AM CDT - 08/24/2024 11:59 PM CDT Hospital Encounter [facility] PFT Lab [address] Floor [address], [address] [place] [address] Shortness of breath Discharge Disposition: Discharge to home or self care 08/24/2024 8:00 AM CDT Office Visit [facility] Pulmonary [address] Floor 5 [place] [phone] Justin Pederson MD Chronic obstructive pulmonary disease, unspecified COPD type (HCC) (Primary Dx); Chronic sinusitis, unspecified location; Collapse of right lung; Malignant neoplasm of upper lobe of right lung (CMS/HCC) (HCC) 08/12/2024 Telephone [facility] [address] [place], [place] [address] [place] [address] Henrique Dean MD Cough 07/23/2024 Results Follow-Up [facility] [address] [place] [phone] Ivan Hemphill MD Lipid panel, Albumin Creatinine Ratio, Urine, XR Chest Pa Lateral 2 Views 07/23/2024 2:00 PM AGRICULTURAL SYSTEMS SPECIALIST Lab [facility] ([facility]) [address] [place] [phone] Other hyperlipidemia; Type 2 diabetes mellitus without complication, without long-term current use of insulin ([facility]) 07/23/2024 11:16 AM [facility] - 07/23/2024 11:59 PM AGRICULTURAL SYSTEMS SPECIALIST Hospital Encounter [facility] ([facility]) [address] [place] [address] Ivan Hemphill MD Pneumonia of left lower lobe due to infectious organism Discharge Disposition: Discharge to home or self care 07/23/2024 10:45 AM AGRICULTURAL SYSTEMS SPECIALIST Office Visit [facility] [address] [place] [phone] Ivan Hemphill MD Pneumonia of left lower lobe due to infectious organism (Primary Dx); Type 2 diabetes mellitus without complication, without long-term current use of insulin ([facility]); Iron deficiency anemia, unspecified iron deficiency anemia type; Other hyperlipidemia; Benign essential hypertension from Last 3 Months Allergies No known active allergies Medications omeprazole (PriLOSEC) 20 mg capsule daily. Active kcoeiqwi-qce-GC-ly copen-lutein 0.4 mg-300 mcg- 250 mcg tablet 1 tablet Active ALPRAZolam (XANAX) 0.25 mg tablet Take 1 tablet (0.25 mg total) by mouth 3 (three) times a day as needed for anxiety 30 tablet 1 024 Active levETIRAcetam (KEPPRA) 750 mg tablet Take one tablet by mouth twice daily 60 tablet 11 024 Active telmisartan-hydroc hlorothiazid (MICARDIS HCT) 80-25 mg per tablet Take 1 tablet by mouth daily 30 tablet 11 024 Active cloNIDine (CATAPRES) 0.2 mg tablet Take 1 tablet by mouth twice daily 60 tablet 11 024 Active carvediloL (COREG) 25 mg tablet Take 1 tablet by mouth twice daily 60 tablet 024 Active acetaminophen (TYLENOL) 325 mg tablet Take 2 tablets (650 mg total) by mouth every 4 (four) hours as needed for pain 90 tablet 1 024 Active metFORMIN (GLUCOPHAGE) 500 mg tablet Take [...] hours as needed for wheezing 8.5 each 025 Active Farxiga 10 mg tablet TAKE 1 TABLET BY MOUTH DAILY 90 tablet 3 025 Active HYDROcodone-acetam inophen (NORCO) 5-325 mg per tabletIndications: Pain Take 1 tablet by mouth every 6 (six) hours as needed for pain 28 tablet 025 Active flash glucose sensor (FreeStyle Irena 2 Sensor) kit Will use 2 sensors per month. 2 kit 11 023 2024 Discontinued(T herapy completed) atorvastatin (LIPITOR) 40 mg tablet Take 1 tablet by mouth daily 90 tablet 3 024 2024 Discontinued albuterol HFA (PROVENTIL HFA,VENTOLIN HFA,PROAIR HFA) 90 mcg/actuation inhaler Inhale 2 puffs by mouth every 6 hours as needed for wheezing 8.5 each 11 024 2024 Discontinued guaiFENesin 1,200 mg tablet [...] for an empyema. He presented back to [facility] on 07/25/2022-07/29/2022 with worsening shortness of [...] of spinal fusion at multiple levels Continue [place] [facility] Dr. Gamble # given to schedule for f/u Chronic midline low back pain without sciatica 1 Assessment & Plan (06/11/2024 12:26 PM AGRICULTURAL SYSTEMS SPECIALIST): Continue p.r.n. hydrocodone. Assessment & Plan (03/12/2024 [...] 11/21/2023 Assessment & Plan (07/23/2024 10:58 AM AGRICULTURAL SYSTEMS SPECIALIST): Had EGD/colo with no cause of bleeding. [...] 07/18/2023 Assessment & Plan (07/18/2023 2:36 PM AGRICULTURAL SYSTEMS SPECIALIST): Can stop PPI and switch to H2 dianna. Pulmonary emphysema 06/06/2023 Assessment & Plan (06/11/2024 12:26 PM AGRICULTURAL SYSTEMS SPECIALIST): Doing better now. Cough is improved Seizure disorder 11/20/2022 Assessment & Plan (10/06/2024 11:03 AM CDT): No seizure activity Continue keppra Assessment & Plan (12/08/2023 3:23 PM CDT): None recently doing well on Keppra Assessment & Plan (07/18/2023 2:34 PM AGRICULTURAL SYSTEMS SPECIALIST): Continue Keppra. Assessment & Plan (06/13/2023 11:13 AM AGRICULTURAL SYSTEMS SPECIALIST): Doing well on Keppra 750mg BID Assessment [...] 07/31/2022 Assessment & Plan (07/23/2024 10:57 AM AGRICULTURAL SYSTEMS SPECIALIST): Due for lipid check. Continue atorvastatin. Assessment & Plan (03/23/2024 9:29 AM CDT): At goal on current therapy. Assessment & Plan (11/22/2023 9:42 PM CDT): At goal on current therapy. Assessment & Plan (07/18/2023 2:33 PM AGRICULTURAL SYSTEMS SPECIALIST): Check labs. Continue statin. Assessment & Plan (03/17/2023 2:15 PM CDT): At goal on current therapy. Assessment & Plan (09/04/2022 2:06 PM CDT): -Continue home atorvastatin 40 mg q day Assessment & Plan (09/03/2022 8:41 AM CDT): --Continue home atorvastatin 40 mg q day Assessment & Plan (07/31/2022 2:15 PM AGRICULTURAL SYSTEMS SPECIALIST): At goal on current therapy. Type 2 diabetes mellitus 07/12/2022 Assessment & Plan (10/06/2024 11:01 AM CDT): A1c 6.8% Continue Farxiga 10mg and metformin XR 500mg daily Labs UTD Assessment & Plan (07/23/2024 11:09 AM AGRICULTURAL SYSTEMS SPECIALIST): A1c at goal on current therapy. Will repeat microalbumin since he is now on Farxiga. He will schedule an eye exam. Encourage good foot care given his neuropathy. Assessment & Plan (06/11/2024 12:26 PM AGRICULTURAL SYSTEMS SPECIALIST): A1c at target Assessment & Plan (03/23/2024 [...] metformin. Assessment & Plan (07/18/2023 2:33 PM AGRICULTURAL SYSTEMS SPECIALIST): A1c near goal. Continue metformin 500 mg [...] insulin Assessment & Plan (07/31/2022 2:16 PM AGRICULTURAL SYSTEMS SPECIALIST): Hypoglycemic recently requiring him to stop his glimepiride completely. Will give him Irena CGM today and see if we can get this covered long-term. For now, remain off glimepiride and take metformin as needed. Recommend yearly eye exams. Assessment & Plan (07/12/2022 7:58 AM AGRICULTURAL SYSTEMS SPECIALIST): - ADA diet - SSI EZEQUIEL (obstructive [...] BID Assessment & Plan (07/23/2024 10:57 AM AGRICULTURAL SYSTEMS SPECIALIST): At goal on current therapy. Assessment & [...] therapy. Assessment & Plan (07/18/2023 2:32 PM AGRICULTURAL SYSTEMS SPECIALIST): At goal on current therapy. Assessment & Plan (03/17/2023 2:14 PM CDT): At goal on current therapy. Assessment & Plan (09/04/2022 2:05 PM CDT): - Continue home medications: amlodipine 5 mg BID, Coreg 25 mg BID, clonidine 0.2 mg BID. Losartan 100 and HCTZ 25 substituted for telmisartan-HCTZ 80-25 (non- formulary at [facility]) Assessment & Plan (09/03/2022 8:42 AM CDT): --Continue home medications: amlodipine 5 mg BID, Coreg 25 mg BID, clonidine 0.2 mg BID. Losartan 100 and HCTZ 25 substituted for telmisartan-HCTZ 80-25 (non- formulary at [facility]) Assessment & Plan (07/31/2022 2:15 PM AGRICULTURAL SYSTEMS SPECIALIST): At goal on current therapy. Assessment & Plan (07/14/2022 10:02 AM AGRICULTURAL SYSTEMS SPECIALIST): - continue home coreg, clonidine - restart home norvasc Malignant neoplasm of upper lobe of right lung ( CMS/HCC) 08/14/2015 Assessment & Plan (07/18/2023 2:34 PM AGRICULTURAL SYSTEMS SPECIALIST): Per oncology. Assessment & Plan (09/04/2022 2:00 PM CDT): Stage IIIA (T3N1M0) SCC of the RUL who was previously treated with concurrent chemoradiation (w/ carboplatin / paclitaxel) followed by adjuvant carboplatin / paclitaxel in 11/2015 on protocol [facility] # [id number]. Follows with Dr. Gretchen Waldron. He has [...] carboplatin / paclitaxel in 11/2015 on protocol [facility] ED # [id number]. Follows with Dr. Gretchen Waldron. He has completed 5 years of active surveillance and is currently managed with yearly low-dose CT. Last seen in Onc Clinic in November 2021 Assessment & Plan (07/31/2022 1:52 PM AGRICULTURAL SYSTEMS SPECIALIST): S/p PHYSICIST SOLID STATE. Squamous cell carcinoma of lung 08/07/2015 Assessment & Plan (12/08/2023 3:23 PM CDT): Stable followed by Pulmonary and Oncology Resolved Problems Problem Noted Date Diagnosed Date Resolved Date Shortness of breath 08/24/2024 10/07/19 25 Pneumonia of left lower lobe due to infectious organism 07/23/2024 10/06/2024 Assessment & Plan (07/23/2024 11:10 AM AGRICULTURAL SYSTEMS SPECIALIST): Clinically improved after antibiotics. Will repeat CXR [...] Payne is a 63 M PMHx of [id number] COPD (PFTs 11/2023, FEV1 73), Hx of [...] 09/05/2023 Assessment & Plan (07/18/2023 2:35 PM AGRICULTURAL SYSTEMS SPECIALIST): No wheezes or rhonchi to suggest COPD exacerbation today. Cough likely related to chronic lung changes (we reviewed his CXR together). Continue symptomatic treatment and Trelegy. Lesion of nose 06/13/2023 09/05/2023 Assessment & Plan (06/13/2023 11:13 AM AGRICULTURAL SYSTEMS SPECIALIST): Mupirocin TID COPD exacerbation 05/27/2023 12/04/2023 Assessment & Plan (06/13/2023 11:12 AM AGRICULTURAL SYSTEMS SPECIALIST): Resolved, doing wel Assessment & Plan (05/27/2023 11:05 AM AGRICULTURAL SYSTEMS SPECIALIST): Doxy BID x 10d Prednisone 40mg x [...] at increased risk of infection but continuing salvage determiner antibiotics at this point is likely to cause more harm that benefit. I asked them both to monitor closely for any signs or symptoms of worsening infection and to reach out to ID with any concerns. - Follow up with thoracic surgery as scheduled. He reports he will also be following with a head of mathematics. - We discussed that his exercise tolerance [...] work Assessment & Plan (07/31/2022 2:16 PM AGRICULTURAL SYSTEMS SPECIALIST): Continue salt tabs. He has labs scheduled for Friday. Assessment & Plan (07/18/2022 11:11 AM AGRICULTURAL SYSTEMS SPECIALIST): Na 124 upon admission. Likely 2/2 SIADH in the setting of infection - 130 this morning - renal consulted and has signed off - increase salt tabs back to TID - see last renal note for salt tab taper - Total fluid restriction < 1.5L Leukocytosis 07/11/2022 10/01/2022 Assessment & Plan (07/12/2022 7:49 AM AGRICULTURAL SYSTEMS SPECIALIST): R/T empyema - see empyema section Anemia 07/11/2022 06/06/2023 Assessment & Plan (07/11/2022 10:35 AM AGRICULTURAL SYSTEMS SPECIALIST): Anemia of chronic disease. - no s/s of bleeding - transfuse to keep hgb >7 - T&S active History of right-sided empyema 07/10/2022 12/04/2023 Assessment & Plan (07/18/2023 2:34 PM AGRICULTURAL SYSTEMS SPECIALIST): Follows with pulmonary. Assessment & Plan (10/01/2022 12:56 PM CDT): Cardiopulmonary Rehab referral to [facility] We discussed nutrient dense foods Assessment & Plan (09/04/2022 2:00 PM CDT): S/p OR on 07/11/22 for right thoracotomy, bronchcosopy and decortication ([facility]) with cultures growing Staph hominis. Lobectomy was thought to be too high risk at that time, and 2 chest tubes were placed at the OSH and removed on 07/16/22. Of note, patient was recently admitted to [facility] from 08/19 to 08/22 due to concerns [...] 07/11/22 for right thoracotomy, bronchcosopy and decortication ([facility]) with cultures growing Staph hominis. Lobectomy was thought to be too high risk at that time, and 2 chest tubes were placed at the OSH and removed on 07/16/22. Of note, patient was recently admitted to [facility] from 08/19 to 08/22 due to concerns [...] concerns Assessment & Plan (07/31/2022 2:17 PM AGRICULTURAL SYSTEMS SPECIALIST): Follow up with ID and thoracics. Has CT scheduled tomorrow. Assessment & Plan (07/18/2022 11:11 AM AGRICULTURAL SYSTEMS SPECIALIST): empyema superimposed on a chronic and treated [...] against influenza 06/11/2018 10/01/2022 Cough 09/25/2017 10/01/2022 Immunizations Immunization Administration Dates Next Due Influenza, Quadrivalent, Samanta l Culture-based MDCK, Preservative Free, Antibiotic Free, Intramuscular 03/01/2021,06/11/2018 Influenza, Quadrivalent, Spl it, Preservative Free, Intramuscular 03/11/2022 Influenza, Trivalent, Cell C ulture-based MDCK, Preservative Free, Antibiotic Free, Intramuscular 04/05/2024 Influenza, Unspecified 03/24/2023 [email or web address] (J&J) SARS-CoV-2 Vaccination 10/11/2020 Pfizer SARS-CoV-2 Monovalent Vaccination (12+ Yrs) PENA-READY TO USE 10/10/2021 Pneumococcal Conjugate Pcv20 07/23/2024 Pneumococcal Polysaccharide PPV23 01/25/2020 TD Preservative Free 11/10/2020 ZOSTER Recombinant 10/10/2021,10/02/2021, 021 Social History Tobacco Use Types Packs/Day Years [...] week 09/04/2022 How often do you attend [facility] or taoism services? Never 09/04/2022 Do you belong to any clubs o r organizations such as baptism groups, unions, fraternal or athletic groups, or [...] place to sleep or slept in a fpc (including now)? No 09/04/2022 Personal Safety Answer Date Recorded Have you ever been in or are you currently in a harmful physical or emotional relationship or is someone making you feel afraid or unsafe? Denies 04/02/2024 Sex and Gender Information Value Date Recorded Sex Assigned at Not on file Legal Sex Male 4:05 PM AGRICULTURAL SYSTEMS SPECIALIST Gender Identity Not on file Sexual Orientation Not on file Last Filed Vital Signs Vital Sign Reading Time Taken Comments Blood Pressure 126/82 10/06/2024 10:37 AM CDT Pulse 62 10/06/2024 10:37 AM CDT Temperature 36.2 C (97.2 F) 08/24/2024 8:01 AM CDT Respiratory Rate 18 08/24/2024 8:01 AM CDT Oxygen Saturation 95% 10/06/2024 10:37 AM CDT Inhaled Oxygen Concentration - - Weight 82.6 kg (182 lb) 10/06/2024 10:37 AM CDT Height 174 cm (5' 8.5 ) 10/06/2024 10:37 AM CDT Body Mass Index 27.27 10/06/2024 10:37 AM CDT Plan of Treatment Scheduled Procedures Name Priority Associated Diagnoses Date/Ti me ESOPHAGOGASTRODUODENOSCOPY Open Access Iron deficiency anemia, unspecified iron deficiency anemia type Colon cancer screening COLONOSCOPY Open Access Iron deficiency anemia, unspecified iron deficiency anemia type Colon cancer screening Goals Goal Patient Goal Type Associated Problems Recent Progress Patient-Stated? Author CCM Chronic Pain Care Plan Chronic Care Management Kat Singh, RN Note: Problem: Chronic Pain Goals: 1. Minimize further functional decline 2. Maximize quality of life 3. Control pain Strategies: - Activity/exercise program recommendation - Conservative stepwise pain medicine strategy with multi-disciplinary approach - Recommend healthy lifestyle strategies and compensatory methods as needed Medical Devices Implanted Type Area Cell Builder Device Identifier Shelf Expiration Date Model / Serial / Lot Hardware Back Procedures Procedure Name Priority Date/Time Associated Diagnosis Comments POCT HEMOGLOBIN A1C Routine 10/06/2024 10:37 AM CDT Type 2 diabetes mellitus without complication, without long-term current use of insulin (HCC) PULMONARY FUNCTION TEST (PFT) Routine 212054|[id number]|2024-10-11 16:09:00|2024-10-11 16:09:00|XMS_ITS|BKG DAEMON|External Medical Summaries|[id number]|" Clinical Summary Created on: October 11, 2024 Marco Antonio Payne : 1960 Sex: Male Author Organization [facility] Virtual Care Address [facility] [place] [address] Phone Care Team Providers Care Canvas Worker Name Role Phone Gretchen Waldron MD Unavailable [phone] Henrique Dean MD Primary Care Provider George Murillo MD Unavailable [phone] Ivan Hemphill MD Unavailable [phone] Jhon Teresa DPM Unavailable [phone] Allergies No known active allergies Medications omeprazole (PriLOSEC) 20 mg capsule daily. Active ypgbdctz-tpt-LG-ly copen-lutein 0.4 mg-300 mcg- 250 mcg tablet 1 tablet 020 Active ALPRAZolam (XANAX) 0.25 mg tablet Take 1 tablet (0.25 mg total) by mouth 3 (three) times a day as needed for anxiety 30 tablet 1 024 Active levETIRAcetam (KEPPRA) 750 mg tablet Take one tablet by mouth twice daily 60 tablet 11 024 Active telmisartan-hydroc hlorothiazid (MICARDIS HCT) 80-25 mg per tablet Take 1 tablet by mouth daily 30 tablet 024 Active cloNIDine (CATAPRES) 0.2 mg tablet Take 1 tablet by mouth twice daily 60 tablet 11 024 Active carvediloL (COREG) 25 mg tablet Take 1 tablet by mouth twice daily 60 tablet 024 Active acetaminophen (TYLENOL) 325 mg tablet Take 2 tablets (650 mg total) by mouth every 4 (four) hours as needed for pain 90 tablet 1 024 Active metFORMIN (GLUCOPHAGE) 500 mg tablet Take [...] hours as needed for wheezing 8.5 each 11 025 Active Farxiga 10 mg tablet TAKE 1 TABLET BY MOUTH DAILY 90 tablet 3 025 Active HYDROcodone-acetam inophen (NORCO) 5-325 mg per [...] for an empyema. He presented back to [facility] on 07/25/2022-07/29/2022 with worsening shortness of [...] of spinal fusion at multiple levels Continue [place] PRN Dr. Gamble # given to schedule for f/u Chronic midline low back pain without sciatica 1 Assessment & Plan (06/11/2024 12:26 PM AGRICULTURAL SYSTEMS SPECIALIST): Continue p.r.n. hydrocodone. Assessment & Plan (03/12/2024 [...] 11/21/2023 Assessment & Plan (07/23/2024 10:58 AM AGRICULTURAL SYSTEMS SPECIALIST): Had EGD/colo with no cause of bleeding. [...] 07/18/2023 Assessment & Plan (07/18/2023 2:36 PM AGRICULTURAL SYSTEMS SPECIALIST): Can stop PPI and switch to H2 dianna. Pulmonary emphysema 06/06/2023 Assessment & Plan (06/11/2024 12:26 PM AGRICULTURAL SYSTEMS SPECIALIST): Doing better now. Cough is improved Seizure disorder 11/20/2022 Assessment & Plan (10/06/2024 11:03 AM CDT): No seizure activity Continue keppra Assessment & Plan (12/08/2023 3:23 PM CDT): None recently doing well on Keppra Assessment & Plan (07/18/2023 2:34 PM AGRICULTURAL SYSTEMS SPECIALIST): Continue Keppra. Assessment & Plan (06/13/2023 11:13 AM AGRICULTURAL SYSTEMS SPECIALIST): Doing well on Keppra 750mg BID Assessment [...] 07/31/2022 Assessment & Plan (07/23/2024 10:57 AM AGRICULTURAL SYSTEMS SPECIALIST): Due for lipid check. Continue atorvastatin. Assessment & Plan (03/23/2024 9:29 AM CDT): At goal on current therapy. Assessment & Plan (11/22/2023 9:42 PM CDT): At goal on current therapy. Assessment & Plan (07/18/2023 2:33 PM AGRICULTURAL SYSTEMS SPECIALIST): Check labs. Continue statin. Assessment & Plan (03/17/2023 2:15 PM CDT): At goal on current therapy. Assessment & Plan (09/04/2022 2:06 PM CDT): -Continue home atorvastatin 40 mg q day Assessment & Plan (09/03/2022 8:41 AM CDT): --Continue home atorvastatin 40 mg q day Assessment & Plan (07/31/2022 2:15 PM AGRICULTURAL SYSTEMS SPECIALIST): At goal on current therapy. Type 2 diabetes mellitus 07/12/2022 Assessment & Plan (10/06/2024 11:01 AM CDT): A1c 6.8% Continue Farxiga 10mg and metformin XR 500mg daily Labs UTD Assessment & Plan (07/23/2024 11:09 AM AGRICULTURAL SYSTEMS SPECIALIST): A1c at goal on current therapy. Will repeat microalbumin since he is now on Farxiga. He will schedule an eye exam. Encourage good foot care given his neuropathy. Assessment & Plan (06/11/2024 12:26 PM AGRICULTURAL SYSTEMS SPECIALIST): A1c at target Assessment & Plan (03/23/2024 [...] metformin. Assessment & Plan (07/18/2023 2:33 PM AGRICULTURAL SYSTEMS SPECIALIST): A1c near goal. Continue metformin 500 mg [...] insulin Assessment & Plan (07/31/2022 2:16 PM AGRICULTURAL SYSTEMS SPECIALIST): Hypoglycemic recently requiring him to stop his glimepiride completely. Will give him Irena CGM today and see if we can get this covered long-term. For now, remain off glimepiride and take metformin as needed. Recommend yearly eye exams. Assessment & Plan (07/12/2022 7:58 AM AGRICULTURAL SYSTEMS SPECIALIST): - ADA diet - SSI EZEQUIEL (obstructive [...] BID Assessment & Plan (07/23/2024 10:57 AM AGRICULTURAL SYSTEMS SPECIALIST): At goal on current therapy. Assessment & [...] therapy. Assessment & Plan (07/18/2023 2:32 PM AGRICULTURAL SYSTEMS SPECIALIST): At goal on current therapy. Assessment & Plan (03/17/2023 2:14 PM CDT): At goal on current therapy. Assessment & Plan (09/04/2022 2:05 PM CDT): - Continue home medications: amlodipine 5 mg BID, Coreg 25 mg BID, clonidine 0.2 mg BID. Losartan 100 and HCTZ 25 substituted for telmisartan-HCTZ 80-25 (non- formulary at [facility]) Assessment & Plan (09/03/2022 8:42 AM CDT): --Continue home medications: amlodipine 5 mg BID, Coreg 25 mg BID, clonidine 0.2 mg BID. Losartan 100 and HCTZ 25 substituted for telmisartan-HCTZ 80-25 (non- formulary at [facility]) Assessment & Plan (07/31/2022 2:15 PM AGRICULTURAL SYSTEMS SPECIALIST): At goal on current therapy. Assessment & Plan (07/14/2022 10:02 AM AGRICULTURAL SYSTEMS SPECIALIST): - continue home coreg, clonidine - restart home norvasc Malignant neoplasm of upper lobe of right lung ( CMS/HCC) 08/14/2015 Assessment & Plan (07/18/2023 2:34 PM AGRICULTURAL SYSTEMS SPECIALIST): Per oncology. Assessment & Plan (09/04/2022 2:00 PM CDT): Stage IIIA (T3N1M0) SCC of the RUL who was previously treated with concurrent chemoradiation (w/ carboplatin / paclitaxel) followed by adjuvant carboplatin / pac[id number] Follows with Dr. Gretchen Waldron. He has [...] carboplatin / paclitaxel in 11/2015 on protocol [facility] # [id number]. Follows with Dr. Gretchen Waldron. He has completed 5 years of active surveillance and is currently managed with yearly low-dose CT. Last seen in Onc Clinic in November 2021 Assessment & Plan (07/31/2022 1:52 PM AGRICULTURAL SYSTEMS SPECIALIST): S/p PHYSICIST SOLID STATE. Squamous cell carcinoma of lung 08/07/2015 Assessment & Plan (12/08/2023 3:23 PM CDT): Stable followed by Pulmonary and Oncology Resolved Problems Problem Noted Date Diagnosed Date Resolved Date Shortness of breath 08/24/2024 10/07/19 25 Pneumonia of left lower lobe due to infectious organism 07/23/2024 10/06/2024 Assessment & Plan (07/23/2024 11:10 AM AGRICULTURAL SYSTEMS SPECIALIST): Clinically improved after antibiotics. Will repeat CXR [...] Payne is a 63 M PMHx of [id number] COPD (PFTs 11/2023, FEV1 73), Hx of [...] 09/05/2023 Assessment & Plan (07/18/2023 2:35 PM AGRICULTURAL SYSTEMS SPECIALIST): No wheezes or rhonchi to suggest COPD exacerbation today. Cough likely related to chronic lung changes (we reviewed his CXR together). Continue symptomatic treatment and Trelegy. Lesion of nose 06/13/2023 09/05/2023 Assessment & Plan (06/13/2023 11:13 AM AGRICULTURAL SYSTEMS SPECIALIST): Mupirocin TID COPD exacerbation 05/27/2023 12/04/2023 Assessment & Plan (06/13/2023 11:12 AM AGRICULTURAL SYSTEMS SPECIALIST): Resolved, doing wel Assessment & Plan (05/27/2023 11:05 AM AGRICULTURAL SYSTEMS SPECIALIST): Doxy BID x 10d Prednisone 40mg x [...] at increased risk of infection but continuing fdc antibiotics at this point is likely to cause more harm that benefit. I asked them both to monitor closely for any signs or symptoms of worsening infection and to reach out to ID with any concerns. - Follow up with thoracic surgery as scheduled. He reports he will also be following with a head of mathematics. - We discussed that his exercise tolerance [...] work Assessment & Plan (07/31/2022 2:16 PM AGRICULTURAL SYSTEMS SPECIALIST): Continue salt tabs. He has labs scheduled for Friday. Assessment & Plan (07/18/2022 11:11 AM AGRICULTURAL SYSTEMS SPECIALIST): Na 124 upon admission. Likely 2/2 SIADH in the setting of infection - 130 this morning - renal consulted and has signed off - increase salt tabs back to TID - see last renal note for salt tab taper - Total fluid restriction < 1.5L Leukocytosis 07/11/2022 10/01/2022 Assessment & Plan (07/12/2022 7:49 AM AGRICULTURAL SYSTEMS SPECIALIST): R/T empyema - see empyema section Anemia 07/11/2022 06/06/2023 Assessment & Plan (07/11/2022 10:35 AM AGRICULTURAL SYSTEMS SPECIALIST): Anemia of chronic disease. - no s/s of bleeding - transfuse to keep hgb >7 - T&S active History of right-sided empyema 07/10/2022 12/04/2023 Assessment & Plan (07/18/2023 2:34 PM AGRICULTURAL SYSTEMS SPECIALIST): Follows with pulmonary. Assessment & Plan (10/01/2022 12:56 PM CDT): Cardiopulmonary Rehab referral to [facility] We discussed nutrient dense foods Assessment & Plan (09/04/2022 2:00 PM CDT): S/p OR on 07/11/22 for right thoracotomy, bronchcosopy and decortication ([facility]) with cultures growing Staph hominis. Lobectomy was thought to be too high risk at that time, and 2 chest tubes were placed at the OSH and removed on 07/16/22. Of note, patient was recently admitted to [facility] from 08/19 to 08/22 due to concerns [...] 07/11/22 for right thoracotomy, bronchcosopy and decortication ([facility]) with cultures growing Staph hominis. Lobectomy was thought to be too high risk at that time, and 2 chest tubes were placed at the OSH and removed on 07/16/22. Of note, patient was recently admitted to [facility] from 08/19 to 08/22 due to concerns [...] concerns Assessment & Plan (07/31/2022 2:17 PM AGRICULTURAL SYSTEMS SPECIALIST): Follow up with ID and thoracics. Has CT scheduled tomorrow. Assessment & Plan (07/18/2022 11:11 AM AGRICULTURAL SYSTEMS SPECIALIST): empyema superimposed on a chronic and treated [...] Encounters Date Type Department Care Team Description 10/11/2024 Orders Only [facility] [address] [place] [address] [address] [place] [phone] Henrique Dean MD 10/06/2024 10:45 AM CDT Office Visit [facility] [address] [place] [address] [address] [place] [phone] Priya Long NP Type 2 diabetes mellitus without complication, without long-term current use of insulin (HCC) (Primary Dx); Benign essential hypertension; Seizure disorder (HCC); Chronic pain syndrome 08/30/2024 [facility] ([facility]) - [facility] [address] [facility] 11th [place] [address] [place] [address] Matilde Collins, 08/24/2024 8:00 AM CDT Office Visit [facility] Pulmonary [facility] Floor 5 [place] [phone] Justin Pederson MD Chronic obstructive pulmonary disease, unspecified COPD type (HCC) (Primary Dx); Chronic sinusitis, unspecified location; Collapse of right lung; Malignant neoplasm of upper lobe of right lung (CMS/HCC) (HCC) 08/24/2024 7:11 AM CDT - 08/24/2024 11:59 PM CDT Hospital Encounter [facility] PFT Lab [facility] Floor 1, [address] [place] [address] Shortness of breath Discharge Disposition: Discharge to home or self care 08/12/2024 Telephone [facility] [address] [place] [phone] Henrique Dean MD Cough 07/23/2024 2:00 PM AGRICULTURAL SYSTEMS SPECIALIST Lab [facility] [address] [place] [phone] Other hyperlipidemia; Type 2 diabetes mellitus without complication, without long-term current use of insulin ([facility]) 07/23/2024 11:16 AM AGRICULTURAL SYSTEMS SPECIALIST - 07/23/2024 11:59 PM AGRICULTURAL SYSTEMS SPECIALIST Hospital Encounter [facility] [address] [place] [phone] Ivan Hemphill MD Pneumonia of left lower lobe due to infectious organism Discharge Disposition: Discharge to home or self care 07/23/2024 10:45 AM AGRICULTURAL SYSTEMS SPECIALIST Office Visit [facility] [address] [place] [phone] Ivan Hemphill MD Pneumonia of left lower lobe due to infectious organism (Primary Dx); Type 2 diabetes mellitus without complication, without long-term current use of insulin ([facility]); Iron deficiency anemia, unspecified iron deficiency anemia type; Other hyperlipidemia; Benign essential hypertension 07/23/2024 Results Follow-Up [facility] [address] [place] [phone] Ivan Hemphill MD Lipid panel, Albumin Creatinine Ratio, Urine, XR Chest Pa Lateral 2 Views from Last 3 Months Immunizations Immunization Administration Dates Next Due Influenza, Quadrivalent, Samanta l Culture-based MDCK, Preservative Free, Antibiotic Free, Intramuscular 03/01/2021,06/11/2018 Influenza, Quadrivalent, Spl it, Preservative Free, Intramuscular 03/11/2022 Influenza, Trivalent, Cell C ulture-based MDCK, Preservative Free, Antibiotic Free, Intramuscular 04/05/2024 Influenza, Unspecified 03/24/2023 [email or web address] (J&J) SARS-CoV-2 Vaccination 10/11/2020 [place] SARS-CoV-2 Monovalent Vaccination (12+ Yrs) PENA-READY TO [...] mellitus (HCC) Lung cancer (HCC) see's Dr. Franco er Family History Medical History Relation Name Comments [...] often do you attend chur ch or taoism services? Never 09/04/2022 Do you belong to any clubs o r organizations such as baptism groups, unions, fraternal or athletic groups, or [...] place to sleep or slept in a fpc (including now)? No 09/04/2022 Personal Safety Answer Date Recorded Have you ever been in or are you currently in a harmful physical or emotional relationship or is someone making you feel afraid or unsafe? Denies 04/02/2024 Sex and Gender Information Value Date Recorded Sex Assigned at Not on file Legal Sex Male
--- OUTSIDE RECORDS SUMMARY | 2024-10-11 12:00 | XMS_ITS ---
Author Organization [facility] Virtual Care Address [address] [place] [phone] Phone Care Team Providers Care Discharge Door Operator Name Role Phone MaliagennaGretchen rivera MD Unavailable Henrique Dean MD Primary Care Provider [phone] George Murillo MD Unavailable [phone] Ivan Hemphill MD Unavailable Jhon Teresa DPM Unavailable Active Problems Patient Care Coordination No te Formatting of this note migh t be different from the original. Kat Becerra NP 07/31/2022 14:52 This is a 61-year-old presenting to the clinic today for follow-up after right chest tube placement by you on 07/11/2022 for an empyema. He presented back to [facility] on 07/25/2022-07/29/2022 with worsening shortness [...] of spinal fusion at multiple levels Continue Jose Manuel Gamble # given to schedule for f/u Chronic midline low back pain without sciatica 1 Assessment & Plan (06/11/2024 12:26 PM GENETIC PHYSICIAN): Continue p.r.n. hydrocodone. Assessment & Plan (03/12/2024 [...] 11/21/2023 Assessment & Plan (07/23/2024 10:58 AM GENETIC PHYSICIAN): Had EGD/colo with no cause of bleeding. [...] 07/18/2023 Assessment & Plan (07/18/2023 2:36 PM GENETIC PHYSICIAN): Can stop PPI and switch to H2 dianna. Pulmonary emphysema 06/06/2023 Assessment & Plan (06/11/2024 12:26 PM GENETIC PHYSICIAN): Doing better now. Cough is improved Seizure disorder 11/20/2022 Assessment & Plan (10/06/2024 11:03 AM CDT): No seizure activity Continue keppra Assessment & Plan (12/08/2023 3:23 PM CDT): None recently doing well on Keppra Assessment & Plan (07/18/2023 2:34 PM GENETIC PHYSICIAN): Continue Keppra. Assessment & Plan (06/13/2023 11:13 AM GENETIC PHYSICIAN): Doing well on Keppra 750mg BID Assessment [...] 07/31/2022 Assessment & Plan (07/23/2024 10:57 AM GENETIC PHYSICIAN): Due for lipid check. Continue atorvastatin. Assessment & Plan (03/23/2024 9:29 AM CDT): At goal on current therapy. Assessment & Plan (11/22/2023 9:42 PM CDT): At goal on current therapy. Assessment & Plan (07/18/2023 2:33 PM GENETIC PHYSICIAN): Check labs. Continue statin. Assessment & Plan (03/17/2023 2:15 PM CDT): At goal on current therapy. Assessment & Plan (09/04/2022 2:06 PM CDT): -Continue home atorvastatin 40 mg q day Assessment & Plan (09/03/2022 8:41 AM CDT): --Continue home atorvastatin 40 mg q day Assessment & Plan (07/31/2022 2:15 PM GENETIC PHYSICIAN): At goal on current therapy. Type 2 diabetes mellitus 07/12/2022 Assessment & Plan (10/06/2024 11:01 AM CDT): A1c 6.8% Continue Farxiga 10mg and metformin XR 500mg daily Labs UTD Assessment & Plan (07/23/2024 11:09 AM GENETIC PHYSICIAN): A1c at goal on current therapy. Will repeat microalbumin since he is now on Farxiga. He will schedule an eye exam. Encourage good foot care given his neuropathy. Assessment & Plan (06/11/2024 12:26 PM GENETIC PHYSICIAN): A1c at target Assessment & Plan (03/23/2024 [...] metformin. Assessment & Plan (07/18/2023 2:33 PM GENETIC PHYSICIAN): A1c near goal. Continue metformin 500 mg [...] insulin Assessment & Plan (07/31/2022 2:16 PM GENETIC PHYSICIAN): Hypoglycemic recently requiring him to stop his glimepiride completely. Will give him Irena CGM today and see if we can get this covered long-term. For now, remain off glimepiride and take metformin as needed. Recommend yearly eye exams. Assessment & Plan (07/12/2022 7:58 AM GENETIC PHYSICIAN): - ADA diet - SSI EZEQUIEL (obstructive [...] BID Assessment & Plan (07/23/2024 10:57 AM GENETIC PHYSICIAN): At goal on current therapy. Assessment & [...] therapy. Assessment & Plan (07/18/2023 2:32 PM GENETIC PHYSICIAN): At goal on current therapy. Assessment & Plan (03/17/2023 2:14 PM CDT): At goal on current therapy. Assessment & Plan (09/04/2022 2:05 PM CDT): - Continue home medications: amlodipine 5 mg BID, Coreg 25 mg BID, clonidine 0.2 mg BID. Losartan 100 and HCTZ 25 substituted for telmisartan-HCTZ 80-25 (non- formulary at [facility]) Assessment & Plan (09/03/2022 8:42 AM CDT): --Continue home medications: amlodipine 5 mg BID, Coreg 25 mg BID, clonidine 0.2 mg BID. Losartan 100 and HCTZ 25 substituted for telmisartan-HCTZ 80-25 (non- formulary at [facility]) Assessment & Plan (07/31/2022 2:15 PM GENETIC PHYSICIAN): At goal on current therapy. Assessment & Plan (07/14/2022 10:02 AM GENETIC PHYSICIAN): - continue home coreg, clonidine - restart home norvasc Malignant neoplasm of upper lobe of right lung ( CMS/HCC) 08/14/2015 Assessment & Plan (07/18/2023 2:34 PM GENETIC PHYSICIAN): Per oncology. Assessment & Plan (09/04/2022 2:00 PM CDT): Stage IIIA (T3N1M0) SCC of the RUL who was previously treated with concurrent chemoradiation (w/ carboplatin / paclitaxel) followed by adjuvant carboplatin / paclitaxel in 11/2015 on protocol [facility] # [id number]. Follows with Dr. Gretchen Waldron. He has [...] carboplatin / paclitaxel in 11/2015 on protocol [facility] # [id number]. Follows with Dr. Gretchen Waldron. He has completed 5 years of active surveillance and is currently managed with yearly low-dose CT. Last seen in Onc Clinic in November 2021 Assessment & Plan (07/31/2022 1:52 PM GENETIC PHYSICIAN): S/p CLAY MIXER. Squamous cell carcinoma of lung 08/07/2015 Assessment & Plan (12/08/2023 3:23 PM CDT): Stable followed by Pulmonary and Oncology Current Treatment and Therapy Plans No current plan information found. Past Treatment and Therapy Plans No past plan information found. Lifetime Dose Tracking * Chemical Lifetime Dose Automatic Entry Manual Entr y Fluoro Time 1.167 minutes 1.167 minutes 0 minutes Air kerma at the reference point (Ka,r) 0.001 mGy 0 .001 mGy 0 mGy DLP 5,089 mGycm 5,089 mGycm 0 mGycm Resolved Problems Problem Noted Date Diagnosed Date Resolved Date Shortness of breath 08/24/2024 10/07/19 25 Pneumonia of left lower lobe due to infectious organism 07/23/2024 10/06/2024 Assessment & Plan (07/23/2024 11:10 AM GENETIC PHYSICIAN): Clinically improved after antibiotics. Will repeat CXR [...] Payne is a 63 M PMHx of [id number] COPD (PFTs 11/2023, FEV1 73), Hx of [...] 09/05/2023 Assessment & Plan (07/18/2023 2:35 PM GENETIC PHYSICIAN): No wheezes or rhonchi to suggest COPD exacerbation today. Cough likely related to chronic lung changes (we reviewed his CXR together). Continue symptomatic treatment and Trelegy. Lesion of nose 06/13/2023 09/05/2023 Assessment & Plan (06/13/2023 11:13 AM GENETIC PHYSICIAN): Mupirocin TID COPD exacerbation 05/27/2023 12/04/2023 Assessment & Plan (06/13/2023 11:12 AM GENETIC PHYSICIAN): Resolved, doing wel Assessment & Plan (05/27/2023 11:05 AM GENETIC PHYSICIAN): Doxy BID x 10d Prednisone 40mg x [...] at increased risk of infection but continuing intermodal customer service antibiotics at this point is likely to cause more harm that benefit. I asked them both to monitor closely for any signs or symptoms of worsening infection and to reach out to ID with any concerns. - Follow up with thoracic surgery as scheduled. He reports he will also be following with a audience coordinator. - We discussed that his exercise tolerance [...] work Assessment & Plan (07/31/2022 2:16 PM GENETIC PHYSICIAN): Continue salt tabs. He has labs scheduled for Friday. Assessment & Plan (07/18/2022 11:11 AM GENETIC PHYSICIAN): Na 124 upon admission. 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 - no s/s of bleeding - transfuse to keep hgb >7 - T&S active History of right-sided empyema 07/10/2022 12/04/2023 Assessment & Plan (07/18/2023 2:34 PM GENETIC PHYSICIAN): Follows with pulmonary. Assessment & Plan (10/01/2022 12:56 PM CDT): Cardiopulmonary Rehab referral to [facility] We discussed nutrient dense foods Assessment & Plan (09/04/2022 2:00 PM CDT): S/p OR on 07/11/22 for right thoracotomy, bronchcosopy and decortication ([facility]) with cultures growing Staph hominis. Lobectomy was thought to be too high risk at that time, and 2 chest tubes were placed at the OSH and removed on 07/16/22. Of note, patient was recently admitted to [facility] from 08/19 to 08/22 due to [...] 07/11/22 for right thoracotomy, bronchcosopy and decortication ([facility]) with cultures growing Staph hominis. Lobectomy was thought to be too high risk at that time, and 2 chest tubes were placed at the OSH and removed on 07/16/22. Of note, patient was recently admitted to [facility] from 08/19 to 08/22 due to [...] concerns Assessment & Plan (07/31/2022 2:17 PM GENETIC PHYSICIAN): Follow up with ID and thoracics. Has CT scheduled tomorrow. Assessment & Plan (07/18/2022 11:11 AM GENETIC PHYSICIAN): empyema superimposed on a chronic and treated [...]
--- OUTSIDE RECORDS SUMMARY | 2024-10-11 12:00 | XMS_ITS | Clinical Summary ---
Author Organization [facility] Address [address] [place] [address] Care Team Providers Care Director Nicu Name Role Phone Unavailable Primary Care Provider Unavailabl e Social History Tobacco Use Types Packs/Day Years Used Date Smoking Tobacco: Never Assessed Sex and Gender Information Value Date Recorded Sex Assigned at Not on file Legal Sex Male 11:20 AM DANCE DIRECTOR Gender Identity Not on file Sexual Orientation Not on file Plan of Treatment Health Maintenance Due Date Last Done Comments Hepatitis C Virus (HCV) Screening 1960 TdaP Immunization 1960 Colonoscopy 12/19/2004 Colorectal Cancer Screening 12/19/2004 Cologuard 12/19/2009 Immunochemical Fecal Occult Blood 12/19/2009 Zoster Immunization (1 of 2) 12/19/2009 Influenza Immunization (#1) 2024 10/0 11/2020, 04/19/2019, 06/11/2018, Additional history exists SARS-COV-2 Immunization (3 - season) 2024 10/11/2020, 07/28/2020 Pneumococcal Immunization (50+ years) (3 of 3 - PCV20 or PCV21) 01/24/2025 01/25/2020, 08/11/2017 Respiratory Syncytial Virus (RSV) Immunization (Adult) (1 - 1-dose 75+ series) 12/19/2034 Pneumococcal Immunization Combined Discontinued 01/25/2020, 08/11/2017 DTaP/Tdap/Td Immunization Discontinued 11/10/2020 Hepatitis B Immunization Aged Out No longer eligible based on patient's age to complete this topic Meningococcal Immunization (ACWY) Aged Out No longer eligible based on patient's age to complete this topic Rotavirus Immunization Aged Out No lo nger eligible based on patient's age to complete this topic
--- NOTE | 2024-10-11 12:38 | ED.SKABFB ---
HPI - Skin/Abscess/Foreign Bdy General Chief complaint: Skin/Abscess/Foreign Body <Rosemary Navarro PA-C - Last Filed: 10/11/24 16:01> Stated complaint: Unable to swallow-poss food bolus <Rosemary Navarro PA-C - Last Filed: 10/11/24 16:01> Time Seen by Provider: 10/11/24 12:38 <Rosemary Navarro PA-C - Last Filed: 10/11/24 16:01> Focused HPI: This is a 63 year old male that presents to the ER for difficulty swallowing. Reports he has had difficulty swallowing for some time, but usually he is able to get it down eventually. Friday he ate some chicken for dinner and has not been able to eat anything since. It comes right back up. Reports now he is to the point that he cannot even keep any liquids down. GENERAL: Well-appearing, well-nourished, and in no acute distress. HEAD: Normocephalic, atraumatic. CHEST: Clear to auscultation. No respiratory distress. HEART: Regular rate and rhythm. NEURO: Alert and oriented x3. Patient screened in triage and initial orders placed. Additional care and disposition to be based upon diagnostic testing and treatment. <Rosemary Navarro PA-C - Last Filed: 10/11/24 16:01> Related Data Home medications: Home Medications Medication Instructions Recorded Confirmed Last Taken Type albuterol sulfate 90 mcg/actuation 2 puff inhalation Q4H PRN 07/04/22 07/04/22 Unknown History aerosol inhaler Shortness Of Breath amlodipine 5 mg tablet 5 mg PO BID 07/04/22 07/04/22 07/04/22 09:00 History aspirin 81 mg tablet 81 mg PO DAILY 07/04/22 07/04/22 07/04/22 09:00 History atorvastatin 40 mg tablet 40 mg PO DAILY 07/04/22 07/04/22 07/04/22 09:00 History azithromycin 250 mg tablet 250 mg PO DAILY 07/04/22 07/04/22 07/04/22 09:00 History benzonatate 100 mg capsule 100 mg PO Q8H PRN Cough 07/04/22 07/04/22 07/04/22 09:00 History budesonide 160 mcg-glycopyr 9 1 inh inhalation BID 07/04/22 07/04/22 Unknown History mcg-formot 4.8 mcg/actuation HFA inhaler (Breztri Aerosphere) carvedilol 25 mg tablet 25 mg PO BID 07/04/22 07/04/22 07/04/22 09:00 History clonidine HCl 0.2 mg tablet 0.2 mg PO BID 07/04/22 07/04/22 07/04/22 09:00 History esomeprazole magnesium 20 mg 20 mg PO DAILY 07/04/22 07/04/22 07/04/22 09:00 History tablet,delayed release glimepiride 4 mg tablet 4 mg PO DAILY 07/04/22 07/04/22 07/04/22 09:00 History guaifenesin 1,200 mg tablet, 1,200 mg PO BID 07/04/22 07/04/22 Unknown History extended release 12 hr (Mucinex) metformin 1,000 mg tablet 1,000 mg PO BID 07/04/22 07/04/22 07/04/22 09:00 History gvlcpokppqic-aoehpozj-aznorx tablet 1 tablet PO DAILY 07/04/22 07/04/22 Unknown History prednisone 10 mg tablet 10 mg PO TID 07/04/22 07/04/22 07/04/22 09:00 History telmisartan 80 1 tablet PO DAILY 07/04/22 07/04/22 07/04/22 09:00 History mg-hydrochlorothiazide 25 mg tablet <Rosemary Navarro PA-C - Last Filed: 10/11/24 16:01> Allergies/Adverse reactions: Allergies Allergy/AdvReac Type Severity Reaction Status Date / Time No Known Allergies Allergy Verified 10/11/24 15:53 <Rosemary Navarro PA-C - Last Filed: 10/11/24 16:01> Review of Systems Review of Systems: All systems reviewed & are unremarkable except as noted in HPI and below <Rosemary Navarro PA-C - Last Filed: 10/11/24 16:01> PMFSH Past Medical History Medical History: Medical History Lung cancer <Rosemary Navarro PA-C - Last Filed: 10/11/24 16:01> Family History Family History: Family History Mother Diabetes mellitus Sibling ETOH abuse Father High cholesterol Hypertension <Rosemary Navarro PA-C - Last Filed: 10/11/24 16:01> Social History Social History: Social History Smoking packs per day: 1.5 Smoking cigarettes per day: 30.0 Years smoked: 20 Smoking pack-years: 30.00 Smoking status: Former smoker Tobacco type: cigarettes Alcohol intake: never Drinks per week: 9 Substance use: former Lack of Transportation: No Lack of Food: Never True Current Housing: I Have Housing Concerned About Future Housing: No Difficulty Paying Gas/Electric Bills: No Difficulty Paying for Meds: No Currently Unemployed: No Education: High School Diploma/GED Difficulty w/ Childcare or Family Care: No Spiritual care concerns: No <Rosemary Navarro PA-C - Last Filed: 10/11/24 16:01> Exam Narrative: GENERAL: Well-appearing, well-nourished, and in no acute distress. HEAD: Normocephalic, atraumatic. EYES: EOMI. CHEST: Clear to auscultation. No respiratory distress. No wheezes rales or rhonchi HEART: Regular rate and rhythm. No murmur heard. Normal peripheral pulses. EXTREMITIES: Normal range of motion. No edema. SKIN: Warm, dry, no rash. NEURO: No focal deficits. Alert and oriented x3. PSYCH: Normal mood and affect <Rosemary Navarro PA-C - Last Filed: 10/11/24 16:01> Course CARDER BLANKETS/PA Physician Supervision For this patient encounter, I reviewed the CARDER BLANKETS or PA documentation, treatment plan, and medical decision making; and I had [id number] time with this patient. <Mukund Bentley MD - Last Filed: 10/11/24 21:35> Consultations Consultation #1: Spoke with GI. Patient will be taken to the GI lab <Rosemary Navarro PA-C - Last Filed: 10/11/24 16:01> Date: 10/11/24 <Rosemary Navarro PA-C - Last Filed: 10/11/24 16:01> Vital Signs Vital signs: Vital Signs Temperature 97.4 F L 10/11/24 11:51 Pulse Rate 84 10/11/24 11:51 Respiratory Rate 16 10/11/24 11:51 Blood Pressure 155/100 H 10/11/24 11:51 Pulse Oximetry 97 10/11/24 11:51 Temperature 97.8 F 10/11/24 16:22 Pulse Rate 78 10/11/24 17:32 Respiratory Rate 18 10/11/24 17:32 Blood Pressure 158/83 H 10/11/24 17:32 Pulse Oximetry 100 10/11/24 17:32 Oxygen Delivery Room Air 10/11/24 17:32 Oxygen Flow Rate 6 10/11/24 16:32 <Rosemary Navarro PA-C - Last Filed: 10/11/24 16:01> Vital Signs Temperature 97.4 F L 10/11/24 11:51 Pulse Rate 84 10/11/24 11:51 Respiratory Rate 16 10/11/24 11:51 Blood Pressure 155/100 H 10/11/24 11:51 Pulse Oximetry 97 10/11/24 11:51 Temperature 97.8 F 10/11/24 16:22 Pulse Rate 78 10/11/24 17:32 Respiratory Rate 18 10/11/24 17:32 Blood Pressure 158/83 H 10/11/24 17:32 Pulse Oximetry 100 10/11/24 17:32 Oxygen Delivery Room Air 10/11/24 17:32 Oxygen Flow Rate 6 10/11/24 16:32 <Mukund Bentley MD - Last Filed: 10/11/24 21:35> MDM - Skin/Abscess/Foreign Bdy MDM Narrative Medical decision making narrative: Patient presents the emergency department for difficulty swallowing. Reports he is eating some chicken [place] night and has not been able to keep down solids since. Progressively has worsened to where he cannot even keep down liquids. Patient will be taken to the GI lab for further management <Rosemary Navarro PA-C - Last Filed: 10/11/24 16:01> Differential Diagnosis Differential diagnosis: Likely other (Dysphagia, food bolus, esophageal stricture) <HUMERA Cantu Last Filed: 10/11/24 16:01> Lab Data Attestation: I reviewed the patient's lab results. <Rosemary Navarro PA-C - Last Filed: 10/11/24 16:01> Result diagrams: 10/11/24 13:11 10/11/24 13:11 <Rosemary Navarro PA-C - Last Filed: 10/11/24 16:01> Labs: Lab Results 10/11/24 10/11/24 Range/Units 13:11 17:00 WBC 7.0 (4.5-10.0) K/mm3 RBC 5.55 (4.6-6.20) M/mm3 Hgb 16.8 D (14.0-18.0) g/dL Hct 49.8 (42.0-52.0) % MCV 89.7 (80-100) fl MCH 30.3 (26-34) pg MCHC 33.7 (32-36) g/dl RDW 13.4 (11.5-14.5) % Plt Count 270 (150-375) k/mm3 MPV 9.7 (7.4-10.4) fl Immature Gran % (Auto) 0.3 (0-0.5) % Neut % (Auto) 70.1 (45.5-73.1) % Lymph % (Auto) 15.8 L (18.3-44.2) % [place] % (Auto) 8.3 (2.6-8.5) % Eos % (Auto) 4.4 (0-4.4) % Baso % (Auto) 1.1 (0.2-1.2) % Lymph # (Auto) 1.11 (0.9-3.2) K/mm3 [place] # (Auto) 0.6 (0.1-0.6) K/mm3 Eos # (Auto) 0.3 (0-0.3) K/mm3 Baso # (Auto) 0.1 (0.0-0.1) K/mm3 Abs Immat Gran (auto) 0.02 (0.00-0.031) K/mm3 Absolute Neuts (auto) 4.9 (1.3-6.7) K/mm3 Absolute Nucleated RBC 0.000 (0.0-0.012) K/mm3 Nucleated RBC % 0.0 (0.0-0.2) % Sodium 137 (137-145) mmol/L Potassium 3.5 (3.4-5.0) mmol/L Chloride 98 (98-107) mmol/L Carbon Dioxide 28 (22-30) mmol/L Anion Gap 11 (4-12) mmol/L BUN 15 (9-20) mg/dL Creatinine 0.94 (0.7-1.3) mg/dL Estim Creat Clear Calc 70 ml/min Estimated GFR > 60 (59 - ) Glucose 105 (65-110) mg/dL POC Capillary Glucose 82 (65-105) mg/dl Calcium 9.5 (8.4-10.2) mg/dL Total Bilirubin 1.3 (0.2-1.3) mg/dL AST 28 (17-59) U/L ALT 19 (6-50) U/L Alkaline Phosphatase 110 (38-126) U/L Total Protein 9.0 H (6.3-8.2) g/dL Albumin 4.9 (3.5-5.1) g/dL <Rosemary Navarro PA-C - Last Filed: 10/11/24 16:01> Lab Results 10/11/24 10/11/24 Range/Units 13:11 17:00 WBC 7.0 (4.5-10.0) K/mm3 RBC 5.55 (4.6-6.20) M/mm3 Hgb 16.8 D (14.0-18.0) g/dL Hct 49.8 (42.0-52.0) % MCV 89.7 (80-100) fl MCH 30.3 (26-34) pg MCHC 33.7 (32-36) g/dl RDW 13.4 (11.5-14.5) % Plt Count 270 (150-375) k/mm3 MPV 9.7 (7.4-10.4) fl Immature Gran % (Auto) 0.3 (0-0.5) % Neut % (Auto) 70.1 (45.5-73.1) % Lymph % (Auto) 15.8 L (18.3-44.2) % [place] % (Auto) 8.3 (2.6-8.5) % Eos % (Auto) 4.4 (0-4.4) % Baso % (Auto) 1.1 (0.2-1.2) % Lymph # (Auto) 1.11 (0.9-3.2) K/mm3 [place] # (Auto) 0.6 (0.1-0.6) K/mm3 Eos # (Auto) 0.3 (0-0.3) K/mm3 Baso # (Auto) 0.1 (0.0-0.1) K/mm3 Abs Immat Gran (auto) 0.02 (0.00-0.031) K/mm3 Absolute Neuts (auto) 4.9 (1.3-6.7) K/mm3 Absolute Nucleated RBC 0.000 (0.0-0.012) K/mm3 Nucleated RBC % 0.0 (0.0-0.2) % Sodium 137 (137-145) mmol/L Potassium 3.5 (3.4-5.0) mmol/L Chloride 98 (98-107) mmol/L Carbon Dioxide 28 (22-30) mmol/L Anion Gap 11 (4-12) mmol/L BUN 15 (9-20) mg/dL Creatinine 0.94 (0.7-1.3) mg/dL Estim Creat Clear Calc 70 ml/min Estimated GFR > 60 (59 - ) Glucose 105 (65-110) mg/dL POC Capillary Glucose 82 (65-105) mg/dl Calcium 9.5 (8.4-10.2) mg/dL Total Bilirubin 1.3 (0.2-1.3) mg/dL AST 28 (17-59) U/L ALT 19 (6-50) U/L Alkaline Phosphatase 110 (38-126) U/L Total Protein 9.0 H (6.3-8.2) g/dL Albumin 4.9 (3.5-5.1) g/dL <Mukund Bentley MD - Last Filed: 10/11/24 21:35> Critical Care Time Critical Care Time Critical Care Time: No <Rosemary Navarro PA-C - Last Filed: 10/11/24 16:01> Discharge Plan Discharge Clinical Impression: Dysphagia Qualifiers: Dysphagia type: unspecified Qualified Code(s): R13.10 - Dysphagia, unspecified <Rosemary Navarro PA-C - Last Filed: 10/11/24 16:01> Patient Disposition: Still a Patient <Rosemary Navarro PA-C - Last Filed: 10/11/24 16:01> Condition: Stable <Rosemary Navarro PA-C - Last Filed: 10/11/24 16:01>
[2024-10-11 13:27] LABS: Basophils Absolute Auto 0.1 K/mm3 (0.0-0.1); Basophils Percent Auto 1.1 % (0.2-1.2); Eosinophils Absolute Auto 0.3 K/mm3 (0-0.3); Eosinophils Percent Auto 4.4 % (0-4.4); Hematocrit 49.8 % (42.0-52.0); Hemoglobin 16.8 g/dL (14.0-18.0); Immature Granulocyte Absolute 0.02 K/mm3 (0.00-0.031); Immature Granulocyte Percent A 0.3 % (0-0.5); Lymphocytes Absolute Auto 1.11 K/mm3 (0.9-3.2); Lymphocytes Percent Auto 15.8 % (18.3-44.2); Mean Corpuscular HGB Conc 33.7 g/dl (32-36); Mean Corpuscular Hemoglobin 30.3 pg (26-34); Mean Corpuscular Volume 89.7 fl (80-100); Mean Platelet Volume 9.7 fl (7.4-10.4); Monocytes Absolute Auto 0.6 K/mm3 (0.1-0.6); Monocytes Percent Auto 8.3 % (2.6-8.5); Neutrophils Absolute Auto 4.9 K/mm3 (1.3-6.7); Neutrophils Percent Auto 70.1 % (45.5-73.1); Platelet Count Result 270 k/mm3 (150-375); Red Blood Count 5.55 M/mm3 (4.6-6.20); Red Cell Distribution Width 13.4 % (11.5-14.5)
[2024-10-11 13:37] LABS: Alanine Aminotransferase 19 U/L (6-50); Albumin Level 4.9 g/dL (3.5-5.1); Alkaline Phosphatase 110 U/L (38-126); Anion Gap 11 mmol/L (4-12); Aspartate Amino Transferase 28 U/L (17-59); Bilirubin,Total 1.3 mg/dL (0.2-1.3); Blood Urea Nitrogen 15 mg/dL (9-20); Calcium 9.5 mg/dL (8.4-10.2); Carbon Dioxide 28 mmol/L (22-30); Chloride 98 mmol/L (98-107); Estimated CRCL calculation 70 ml/min; Estimated Glomerular Filt Rate > 60; Glucose 105 mg/dL (65-110); Potassium 3.5 mmol/L (3.4-5.0); Sodium 137 mmol/L (137-145)
[2024-10-11] MEDS: ONDANSETRON INJ 4 MG/2 ML VIAL IV PUSH (14:42)
[2024-10-11] MEDS: FAMOTIDINE 20 MG/2 ML VIAL IV PUSH (14:42)
--- OUTSIDE RECORDS SUMMARY | 2024-10-11 15:02 | XMS_ITS | Encounter Summary ---
Author Organization [facility] Address [address] [place] [address] Phone Care Team Providers Care Equipment Detailer Name Role Phone Gretchen Waldron MD Unavailable Henrique Dean MD Primary Care Provider [phone] George Murillo MD Unavailable [phone] Ivan Hemphill MD Unavailable Jhon Teresa DPM Unavailable [phone] Encounter Details Date Type Department Care Team [...] often do you attend chur ch or nondenominational services? Never 09/04/2022 Do you belong to any clubs o r organizations such as hinduism groups, unions, fraternal or athletic groups, or [...] place to sleep or slept in a long-term (including now)? No 09/04/2022 Personal Safety Answer Date Recorded Have you ever been in or are you currently in a harmful physical or emotional relationship or is someone making you feel afraid or unsafe? 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 Gender Identity Not on file Sexual Orientation [...] documented as of this encounter Care Teams Equipment Detailer Relationship Specialty Start Date End Date Henrique Dean MD [address] [facility] [address] [place] [address] PCP - General Internal Medicine 09/17/22 Gretchen Waldron MD [address] [facility] [address] [place] [address] Medical Oncologist/Farmworker [place] Medical Oncology 08/06/22 George Murillo MD [address] [facility] [address] [place] [address] Rn Embedded Pulmonary Disease 06/06/23 Ivan Hemphill MD [address] [facility] [address] [place] [address] Consulting Physician Endocrinology Diabetes & Metabolism 06/06/23 Jhon Teresa, GRAY [address] [facility] PODIATRY, [address] [place] [address] Consulting Physician Podiatry 06/06/23 documented as of this encounter
--- OUTSIDE RECORDS SUMMARY | 2024-10-11 15:02 | XMS_ITS | Clinical Summary ---
Author Organization [facility] Address [address] [place] [address] Care Team Providers Care C S S Representative Name Role Phone Unavailable Primary Care Provider Unavailabl e Source Comments [facility] [email or web address],non-owned Affiliates and Associated Physician Practices is amultiple site organization consisting of ambulatory clinics and hospital sitesin [place], [place], [place] and [place]. This disclosure is being madepursuant to the Care Everywhere program and may not contain all information available regarding this patient. 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
--- OUTSIDE RECORDS SUMMARY | 2024-10-11 15:02 | XMS_ITS | Encounter Summary ---
Author Organization [facility] Address [address] [place] [address] Care Team Providers Care Rn Postpartum Name Role Phone Ivan Hemphill MD Primary Care Provider Gretchen Waldron MD Unavailable Henrique Dean MD Primary Care Provider George Murillo MD Unavailable [phone] Ivan Hemphill MD Unavailable [phone] Jhon Teresa DPM Unavailable [phone] Encounter Details Date Type Department Care Team (Late st Contact Info) Description 08/20/2022 Telephone [facility] Primary [facility] Medicine Clinic [address] [facility] [address] [place] [address] Jaylin Gonzalez PSGT Social History [...] declined 08/22/2022 How often do you attend congregation or yazdanism serv ices? Patient declined 08/22/2022 Do you belong to any clubs o r organizations such as congregation groups, unions, fraternal or athletic groups, or [...] or slept in a [facility]cc (including now)? 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 Gender Identity Not on file Sexual Orientation [...] Scheduled Procedures Name Priority Associated Diagnoses Date/Ti al ESOPHAGOGASTRODUODENOSCOPY Open Access Iron deficiency anemia, unspecified [...] documented as of this encounter Care Teams Rn Postpartum Relationship Specialty Start Date End Date Ivan Hemphill MD PCP - General Endocrinology Diabetes & Metabolism 07/31/22 09/16/22 Henrique Dean MD [address] [facility] [address] [place] [address] PCP - General Internal Medicine 09/17/22 Gretchen Waldron MD [address] [facility] [address] [place] [address] Medical Oncologist/Manager Of Merchandising Medical Oncology 08/06/22 George Murillo MD [address] [facility] [address] [place] [address] Bill Clerk Pulmonary Disease 06/06/23 Ivan Hemphill MD [address] [facility] [address] [place] [address] Consulting Physician Endocrinology Diabetes & Metabolism 06/06/23 Jhon Teresa, DPM [address] POD[facility]ATRY, [address] [place] [address] Consulting Physician Podiatry 06/06/23 documented as of this encounter
--- OUTSIDE RECORDS SUMMARY | 2024-10-11 15:02 | XMS_ITS | Encounter Summary ---
Author Organization [facility] Address [address] [place] [address] Phone Care Team Providers Care Demolition Crane Operator Name Role Phone Gretchen Wladron MD Unavailable Henrique Dean MD Primary Care Provider [phone] George Murillo MD Unavailable [phone] Ivan Hemphill MD Unavailable [phone] Jhon Teresa DPM Unavailable Encounter Details Date [...] often do you attend chur ch or samaritan services? Never 09/04/2022 Do you belong to any clubs o r organizations such as zoroastrianism groups, unions, fraternal or athletic groups, or [...] place to sleep or slept in a [place] [facility] [place] (including now)? No 09/04/2022 Personal Safety Answer Date Recorded Have you ever been in or are you currently in a harmful physical or emotional relationship or is someone making you feel afraid or unsafe? 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 [address] [place] [address] PCP - General Internal Medicine 09/17/22 Gretchen Waldron MD [address] [facility] [address] [place] [address] Medical Oncologist/Clinical Nurse Reviewer Medical Oncology 08/06/22 George Murillo MD [address] [facility] [address] [place] [address] Diabetes Specialist Pulmonary Disease 06/06/23 Ivan Hemphill MD [address] [facility] [address] [place], [place] [id number] Consulting Physician Endocrinology Diabetes & Metabolism 06/06/23 Jhon Teresa, GRAY [address] [facility]S PODIATRY, [address] [place] [address] Consulting Physician Podiatry 06/06/23 documented as of this encounter
--- OUTSIDE RECORDS SUMMARY | 2024-10-11 15:03 | XMS_ITS | CONTINUITY OF CARE DOCUMENT ---
Author Name robertrobert Address Unknown Organization [facility] Address [address] [facility] [address] [place] [address] Phone [phone] Care Team Providers Care Fundraising Consultant Name Role Phone Soledad KRISHNA, Ruben Bañuelos Unavailable [phone] RIYA BENNETT MD Unavailable RIYA BENNETT MD Unavailable [phone] INSURANCE PROVIDERS Payer name Policy type / Coverage type [place] red constitution party ID UHC MEDICARE COMPLETE HMO Other [id number]
--- OUTSIDE RECORDS SUMMARY | 2024-10-11 15:03 | XMS_ITS | Clinical Summary ---
Author Organization [facility] Virtual Care Address [address] [place] [address] Phone Care Team Providers Care Master Barber Name Role Phone KandikeerthiGretchen MD Unavailable Henrique Dean MD Primary Care Provider [phone] George Murillo MD Unavailable [phone] Ivan Hemphill MD Unavailable [phone] Jhon Teresa DPM Unavailable [phone] Allergies No known active allergies Medications omeprazole (PriLOSEC) 20 mg capsule daily. Active hjuhclng-xmz-GO-ly copen-lutein 0.4 mg-300 mcg- 250 mcg tablet [...] for an empyema. He presented back to [facility] on 07/25/2022-07/29/2022 with worsening shortness of breath [...] of spinal fusion at multiple levels Continue [place] PRN Dr. Gamble # given to schedule for f/u Chronic midline low back pain without sciatica 1 Assessment & Plan (06/11/2024 12:26 PM PLASTIC WORKER): Continue p.r.n. hydrocodone. Assessment & Plan (03/12/2024 [...] 11/21/2023 Assessment & Plan (07/23/2024 10:58 AM PLASTIC WORKER): Had EGD/colo with no cause of bleeding. [...] 07/18/2023 Assessment & Plan (07/18/2023 2:36 PM PLASTIC WORKER): Can stop PPI and switch to H2 dianna. Pulmonary emphysema 06/06/2023 Assessment & Plan (06/11/2024 12:26 PM PLASTIC WORKER): Doing better now. Cough is improved Seizure disorder 11/20/2022 Assessment & Plan (10/06/2024 11:03 AM CDT): No seizure activity Continue keppra Assessment & Plan (12/08/2023 3:23 PM CDT): None recently doing well on Keppra Assessment & Plan (07/18/2023 2:34 PM PLASTIC WORKER): Continue Keppra. Assessment & Plan (06/13/2023 11:13 AM PLASTIC WORKER): Doing well on Keppra 750mg BID Assessment [...] 07/31/2022 Assessment & Plan (07/23/2024 10:57 AM PLASTIC WORKER): Due for lipid check. Continue atorvastatin. Assessment & Plan (03/23/2024 9:29 AM CDT): At goal on current therapy. Assessment & Plan (11/22/2023 9:42 PM CDT): At goal on current therapy. Assessment & Plan (07/18/2023 2:33 PM PLASTIC WORKER): Check labs. Continue statin. Assessment & Plan (03/17/2023 2:15 PM CDT): At goal on current therapy. Assessment & Plan (09/04/2022 2:06 PM CDT): -Continue home atorvastatin 40 mg q day Assessment & Plan (09/03/2022 8:41 AM CDT): --Continue home atorvastatin 40 mg q day Assessment & Plan (07/31/2022 2:15 PM PLASTIC WORKER): At goal on current therapy. Type 2 diabetes mellitus 07/12/2022 Assessment & Plan (10/06/2024 11:01 AM CDT): A1c 6.8% Continue Farxiga 10mg and metformin XR 500mg daily Labs UTD Assessment & Plan (07/23/2024 11:09 AM PLASTIC WORKER): A1c at goal on current therapy. Will repeat microalbumin since he is now on Farxiga. He will schedule an eye exam. Encourage good foot care given his neuropathy. Assessment & Plan (06/11/2024 12:26 PM PLASTIC WORKER): A1c at target Assessment & Plan (03/23/2024 [...] metformin. Assessment & Plan (07/18/2023 2:33 PM PLASTIC WORKER): A1c near goal. Continue metformin 500 mg [...] insulin Assessment & Plan (07/31/2022 2:16 PM PLASTIC WORKER): Hypoglycemic recently requiring him to stop his glimepiride completely. Will give him Irena CGM today and see if we can get this covered long-term. For now, remain off glimepiride and take metformin as needed. Recommend yearly eye exams. Assessment & Plan (07/12/2022 7:58 AM PLASTIC WORKER): - ADA diet - SSI EZEQUIEL (obstructive [...] BID Assessment & Plan (07/23/2024 10:57 AM PLASTIC WORKER): At goal on current therapy. Assessment & [...] therapy. Assessment & Plan (07/18/2023 2:32 PM PLASTIC WORKER): At goal on current therapy. Assessment & Plan (03/17/2023 2:14 PM CDT): At goal on current therapy. Assessment & Plan (09/04/2022 2:05 PM CDT): - Continue home medications: amlodipine 5 mg BID, Coreg 25 mg BID, clonidine 0.2 mg BID. Losartan 100 and HCTZ 25 substituted for telmisartan-HCTZ 80-25 (non- formulary at [facility]) Assessment & Plan (09/03/2022 8:42 AM CDT): --Continue home medications: amlodipine 5 mg BID, Coreg 25 mg BID, clonidine 0.2 mg BID. Losartan 100 and HCTZ 25 substituted for telmisartan-HCTZ 80-25 (non- formulary at [facility]) Assessment & Plan (07/31/2022 2:15 PM PLASTIC WORKER): At goal on current therapy. Assessment & Plan (07/14/2022 10:02 AM PLASTIC WORKER): - continue home coreg, clonidine - restart home norvasc Malignant neoplasm of upper lobe of right lung ( CMS/HCC) 08/14/2015 Assessment & Plan (07/18/2023 2:34 PM PLASTIC WORKER): Per oncology. Assessment & Plan (09/04/2022 2:00 PM CDT): Stage IIIA (T3N1M0) SCC of the RUL who was previously treated with concurrent chemoradiation (w/ carboplatin / paclitaxel) followed by adjuvant carboplatin / paclitaxel in 11/[id number]. Follows with Dr. Gretchen Waldron. He has [...] carboplatin / paclitaxel in 11/2015 [facility] [id number]. Follows with Dr. Gretchen Waldron. He has completed 5 years of active surveillance and is currently managed with yearly low-dose CT. Last seen in Onc Clinic in November 2021 Assessment & Plan (07/31/2022 1:52 PM PLASTIC WORKER): S/p RADIOLOGY ASSISTANT. Squamous cell carcinoma of lung 08/07/2015 Assessment & Plan (12/08/2023 3:23 PM CDT): Stable followed by Pulmonary and Oncology Resolved Problems Problem Noted Date Diagnosed Date Resolved Date Shortness of breath 08/24/2024 10/07/19 25 Pneumonia of left lower lobe due to infectious organism 07/23/2024 10/06/2024 Assessment & Plan (07/23/2024 11:10 AM PLASTIC WORKER): Clinically improved after antibiotics. Will repeat CXR [...] Payne is a 63 M PMHx of [id number] COPD (PFTs 11/2023, FEV1 73), Hx of [...] 09/05/2023 Assessment & Plan (07/18/2023 2:35 PM PLASTIC WORKER): No wheezes or rhonchi to suggest COPD exacerbation today. Cough likely related to chronic lung changes (we reviewed his CXR together). Continue symptomatic treatment and Trelegy. Lesion of nose 06/13/2023 09/05/2023 Assessment & Plan (06/13/2023 11:13 AM PLASTIC WORKER): Mupirocin TID COPD exacerbation 05/27/2023 12/04/2023 Assessment & Plan (06/13/2023 11:12 AM PLASTIC WORKER): Resolved, doing wel Assessment & Plan (05/27/2023 11:05 AM PLASTIC WORKER): Doxy BID x 10d Prednisone 40mg x [...] at increased risk of infection but continuing power tool repairer antibiotics at this point is likely to cause more harm that benefit. I asked them both to monitor closely for any signs or symptoms of worsening infection and to reach out to ID with any concerns. - Follow up with thoracic surgery as scheduled. He reports he will also be following with a frame repairer. - We discussed that his exercise tolerance [...] work Assessment & Plan (07/31/2022 2:16 PM PLASTIC WORKER): Continue salt tabs. He has labs scheduled for Friday. Assessment & Plan (07/18/2022 11:11 AM PLASTIC WORKER): Na 124 upon admission. Likely 2/2 SIADH in the setting of infection - 130 this morning - renal consulted and has signed off - increase salt tabs back to TID - see last renal note for salt tab taper - Total fluid restriction < 1.5L Leukocytosis 07/11/2022 10/01/2022 Assessment & Plan (07/12/2022 7:49 AM PLASTIC WORKER): R/T empyema - see empyema section Anemia 07/11/2022 06/06/2023 Assessment & Plan (07/11/2022 10:35 AM PLASTIC WORKER): Anemia of chronic disease. - no s/s of bleeding - transfuse to keep hgb >7 - T&S active History of right-sided empyema 07/10/2022 12/04/2023 Assessment & Plan (07/18/2023 2:34 PM PLASTIC WORKER): Follows with pulmonary. Assessment & Plan (10/01/2022 12:56 PM CDT): Cardiopulmonary Rehab referral to [facility] We discussed nutrient dense foods Assessment & Plan (09/04/2022 2:00 PM CDT): S/p OR on 07/11/22 for right thoracotomy, bronchcosopy and decortication ([facility]) with cultures growing Staph hominis. Lobectomy was thought to be too high risk at that time, and 2 chest tubes were placed at the OSH and removed on 07/16/22. Of note, patient was recently admitted to [facility] from 08/19 to 08/22 due to concerns [...] 07/11/22 for right thoracotomy, bronchcosopy and decortication ([facility]) with cultures growing Staph hominis. Lobectomy was thought to be too high risk at that time, and 2 chest tubes were placed at the OSH and removed on 07/16/22. Of note, patient was recently admitted to [facility] from 08/19 to 08/22 due to concerns [...] concerns Assessment & Plan (07/31/2022 2:17 PM PLASTIC WORKER): Follow up with ID and thoracics. Has CT scheduled tomorrow. Assessment & Plan (07/18/2022 11:11 AM PLASTIC WORKER): empyema superimposed on a chronic and treated [...] [facility] [address] [place] [address] Priya Long NP Type 2 diabetes mellitus without complication, without long-term current use of insulin (HCC) (Primary Dx); Benign essential hypertension; Seizure disorder (HCC); Chronic pain syndrome 08/30/2024 Telephone [facility] ([facility]) - [facility] ENT [address] [facility] [address]th [place] [address] [place] [phone] Matilde Collins, 08/24/2024 8:00 AM CDT Office Visit [facility] Pulmonary [address] [place] [address] Justin Pederson MD Chronic obstructive pulmonary disease, unspecified COPD type (HCC) (Primary Dx); Chronic sinusitis, unspecified location; Collapse of right lung; Malignant neoplasm of upper lobe of right lung (CMS/HCC) (HCC) 08/24/2024 7:11 AM CDT - 08/24/2024 11:59 PM CDT Hospital Encounter [facility] PFT Lab [address], [address] [place] [address] Shortness of breath Discharge Disposition: Discharge to home or self care 08/12/2024 Telephone [facility] [address] [place], [place] [address] [place] [address] Henrique Dean MD Cough 07/23/2024 2:00 PM PLASTIC WORKER Lab [facility] [address] [place] [phone] Other hyperlipidemia; Type 2 diabetes mellitus without complication, without long-term current use of insulin ([facility]) 07/23/2024 11:16 AM PLASTIC WORKER - 07/23/2024 11:59 PM PLASTIC WORKER Hospital Encounter [facility] Radiology [facility] [address] [place] [address] Ivan Hemphill MD Pneumonia of left lower lobe due to infectious organism Discharge Disposition: Discharge to home or self care 07/23/2024 10:45 AM PLASTIC WORKER Office Visit [facility] [address] [place] [phone] Ivan Hemphill MD Pneumonia of left lower lobe due to infectious organism (Primary Dx); Type 2 diabetes mellitus without complication, without long-term current use of insulin ([facility]); Iron deficiency anemia, unspecified iron deficiency anemia type; Other hyperlipidemia; Benign essential hypertension 07/23/2024 Results Follow-Up [facility] [address] [place] [phone] Ivan Hemphill MD Lipid panel, Albumin Creatinine Ratio, Urine, XR Chest Pa Lateral 2 Views from Last 3 Months Immunizations Immunization Administration Dates Next Due Influenza, Quadrivalent, Samanta l Culture-based MDCK, Preservative Free, Antibiotic Free, Intramuscular 03/01/2021,06/11/2018 Influenza, Quadrivalent, Spl it, Preservative Free, Intramuscular 03/11/2022 Influenza, Trivalent, Cell C ulture-based MDCK, Preservative Free, Antibiotic Free, Intramuscular 04/05/2024 Influenza, Unspecified 03/24/2023 [employer] ([employer]) SARS-CoV-2 Vaccination 10/11/2020 Pfizer SARS-CoV-2 Monovalent [...] often do you attend chur ch or moravian services? Never 09/04/2022 Do you belong to any clubs o r organizations such as hindu groups, unions, fraternal or athletic groups, or [...] on file Legal Sex Male 4:05 PM PLASTIC WORKER Gender Identity Not on file Sexual Orientation Not on file Obstetrics History Last Filed Vital Signs Vital Sign Reading Time Taken Comments Bloo [id number]|2024-10-11 15:03:00|2024-10-11 15:02:00|XMS_ITS|BKG GIANNA|External Medical Summaries|[id number]|" Referral Summary Created on: October 11, 2024 Marco Antonio Payne : 1960 Sex: Male Author Organization [facility] Virtual Care Address [address] [place] [phone] Phone Care Team Providers Care Master Barber Name Role Phone Gretchen Waldron MD Unavailable [phone] Henrique Dean MD Primary Care Provider George Murillo MD Unavailable [phone] Ivan Hemphill MD Unavailable Jhon Teresa DPM Unavailable Encounters Date Type Department Care Team Description 10/06/2024 10:45 AM CDT Office Visit [facility] [address] [place] [phone] Priya Long, ELIEEZR Type 2 diabetes mellitus without complication, without long-term current use of insulin (HCC) (Primary Dx); Benign essential hypertension; Seizure disorder (HCC); Chronic pain syndrome 08/30/2024 Telephone [facility] [address] [facility] [address]th [place] [address] [place] [phone] Collins, Matilde, 08/24/2024 7:11 AM CDT - 08/24/2024 11:59 PM CDT Hospital Encounter [facility] PFT Lab [address], [address] [place] [address] Shortness of breath Discharge Disposition: Discharge to home or self care 08/24/2024 8:00 AM CDT Office Visit [facility] Pulmonary [address] [place] [address] Justin Pederson MD Chronic obstructive pulmonary disease, unspecified COPD type (HCC) (Primary Dx); Chronic sinusitis, unspecified location; Collapse of right lung; Malignant neoplasm of upper lobe of right lung (CMS/HCC) (HCC) 08/12/2024 Telephone [facility] [address] [facility] [address] [place] [phone] Henrique Dean MD Cough 07/23/2024 Results Follow-Up [facility] [address] [place] [phone] Ivan Hemphill MD Lipid panel, Albumin Creatinine Ratio, Urine, XR Chest Pa Lateral 2 Views 07/23/2024 2:00 PM PLASTIC WORKER Lab [facility] [address] [place] [phone] Other hyperlipidemia; Type 2 diabetes mellitus without complication, without long-term current use of insulin (HCC) 07/23/2024 11:16 AM PLASTIC WORKER - 07/23/2024 11:59 PM PLASTIC WORKER Hospital Encounter [facility] [address] [place] [address] Ivan Hemphill MD Pneumonia of left lower lobe due to infectious organism Discharge Disposition: Discharge to home or self care 07/23/2024 10:45 AM PLASTIC WORKER Office Visit [facility] [address] [facility] [address] [facility] [place] [address] Ivan Hemphill MD Pneumonia of left lower lobe due to infectious organism (Primary Dx); Type 2 diabetes mellitus without complication, without long-term current use of insulin ([facility]); Iron deficiency anemia, unspecified iron deficiency anemia type; Other hyperlipidemia; Benign essential hypertension from Last 3 Months Allergies No known active allergies Medications omeprazole (PriLOSEC) 20 mg capsule daily. Active wwrsdefv-mfc-QW-ly copen-lutein 0.4 mg-300 mcg- 250 mcg tablet 1 tablet Active ALPRAZolam (XANAX) 0.25 mg tablet Take 1 tablet (0.25 mg total) by mouth 3 (three) times a day as needed for anxiety 30 tablet Active levETIRAcetam (KEPPRA) 750 mg tablet Take one tablet by mouth twice daily 60 tablet Active telmisartan-hydroc hlorothiazid (MICARDIS HCT) 80-25 mg per tablet Take 1 tablet by mouth daily 30 tablet Active cloNIDine (CATAPRES) 0.2 mg tablet Take 1 tablet by mouth twice daily 60 tablet Active carvediloL (COREG) 25 mg tablet Take 1 tablet by mouth twice daily 60 tablet Active acetaminophen (TYLENOL) 325 mg tablet Take 2 tablets (650 mg total) by mouth every 4 (four) hours as needed for pain 90 tablet 024 Active metFORMIN (GLUCOPHAGE) 500 mg tablet [...] for an empyema. He presented back to [facility] on 07/25/2022-07/29/2022 with worsening shortness of breath [...] 1 Assessment & Plan (06/11/2024 12:26 PM PLASTIC WORKER): Continue p.r.n. hydrocodone. Assessment & Plan (03/12/2024 [...] 11/21/2023 Assessment & Plan (07/23/2024 10:58 AM PLASTIC WORKER): Had EGD/colo with no cause of bleeding. [...] 07/18/2023 Assessment & Plan (07/18/2023 2:36 PM PLASTIC WORKER): Can stop PPI and switch to H2 dianna. Pulmonary emphysema 06/06/2023 Assessment & Plan (06/11/2024 12:26 PM PLASTIC WORKER): Doing better now. Cough is improved Seizure disorder 11/20/2022 Assessment & Plan (10/06/2024 11:03 AM CDT): No seizure activity Continue keppra Assessment & Plan (12/08/2023 3:23 PM CDT): None recently doing well on Keppra Assessment & Plan (07/18/2023 2:34 PM PLASTIC WORKER): Continue Keppra. Assessment & Plan (06/13/2023 11:13 AM PLASTIC WORKER): Doing well on Keppra 750mg BID Assessment [...] 07/31/2022 Assessment & Plan (07/23/2024 10:57 AM PLASTIC WORKER): Due for lipid check. Continue atorvastatin. Assessment & Plan (03/23/2024 9:29 AM CDT): At goal on current therapy. Assessment & Plan (11/22/2023 9:42 PM CDT): At goal on current therapy. Assessment & Plan (07/18/2023 2:33 PM PLASTIC WORKER): Check labs. Continue statin. Assessment & Plan (03/17/2023 2:15 PM CDT): At goal on current therapy. Assessment & Plan (09/04/2022 2:06 PM CDT): -Continue home atorvastatin 40 mg q day Assessment & Plan (09/03/2022 8:41 AM CDT): --Continue home atorvastatin 40 mg q day Assessment & Plan (07/31/2022 2:15 PM PLASTIC WORKER): At goal on current therapy. Type 2 diabetes mellitus 07/12/2022 Assessment & Plan (10/06/2024 11:01 AM CDT): A1c 6.8% Continue Farxiga 10mg and metformin XR 500mg daily Labs UTD Assessment & Plan (07/23/2024 11:09 AM PLASTIC WORKER): A1c at goal on current therapy. Will repeat microalbumin since he is now on Farxiga. He will schedule an eye exam. Encourage good foot care given his neuropathy. Assessment & Plan (06/11/2024 12:26 PM PLASTIC WORKER): A1c at target Assessment & Plan (03/23/2024 [...] side effects. BMP to be drawn on 7/15 with oncology. Continue metformin. Assessment & Plan (07/18/2023 2:33 PM PLASTIC WORKER): A1c near goal. Continue metformin 500 mg [...] insulin Assessment & Plan (07/31/2022 2:16 PM PLASTIC WORKER): Hypoglycemic recently requiring him to stop his glimepiride completely. Will give him Irena CGM today and see if we can get this covered long-term. For now, remain off glimepiride and take metformin as needed. Recommend yearly eye exams. Assessment & Plan (07/12/2022 7:58 AM PLASTIC WORKER): - ADA diet - SSI EZEQUIEL (obstructive [...] BID Assessment & Plan (07/23/2024 10:57 AM PLASTIC WORKER): At goal on current therapy. Assessment & [...] therapy. Assessment & Plan (07/18/2023 2:32 PM PLASTIC WORKER): At goal on current therapy. Assessment & Plan (03/17/2023 2:14 PM CDT): At goal on current therapy. Assessment & Plan (09/04/2022 2:05 PM CDT): - Continue home medications: amlodipine 5 mg BID, Coreg 25 mg BID, clonidine 0.2 mg BID. Losartan 100 and HCTZ 25 substituted for telmisartan-HCTZ 80-25 (non- formulary at [facility]) Assessment & Plan (09/03/2022 8:42 AM CDT): --Continue home medications: amlodipine 5 mg BID, Coreg 25 mg BID, clonidine 0.2 mg BID. Losartan 100 and HCTZ 25 substituted for telmisartan-HCTZ 80-25 (non- formulary at [facility]) Assessment & Plan (07/31/2022 2:15 PM PLASTIC WORKER): At goal on current therapy. Assessment & Plan (07/14/2022 10:02 AM PLASTIC WORKER): - continue home coreg, clonidine - restart home norvasc Malignant neoplasm of upper lobe of right lung ( CMS/HCC) 08/14/2015 Assessment & Plan (07/18/2023 2:34 PM PLASTIC WORKER): Per oncology. Assessment & Plan (09/04/2022 2:00 PM CDT): Stage IIIA (T3N1M0) SCC of the RUL who was previously treated with concurrent chemoradiation (w/ carboplatin / paclitaxel) followed by adjuvant carboplatin / paclitaxel in 11/2015 on protocol [facility] # [id number]. Follows with Dr. Gretchen Waldron. He has [...] paclitaxel in 11/2015 on protocol [facility] # [id number]. Follows with Dr. Gretchen Waldron. He has completed 5 years of active surveillance and is currently managed with yearly low-dose CT. Last seen in Onc Clinic in November 2021 Assessment & Plan (07/31/2022 1:52 PM PLASTIC WORKER): S/p RADIOLOGY ASSISTANT. Squamous cell carcinoma of lung 08/07/2015 Assessment & Plan (12/08/2023 3:23 PM CDT): Stable followed by Pulmonary and Oncology Resolved Problems Problem Noted Date Diagnosed Date Resolved Date Shortness of breath 08/24/2024 10/07/19 25 Pneumonia of left lower lobe due to infectious organism 07/23/2024 10/06/2024 Assessment & Plan (07/23/2024 11:10 AM PLASTIC WORKER): Clinically improved after antibiotics. Will repeat CXR [...] Payne is a 63 M PMHx of [id number] COPD (PFTs 11/2023, FEV1 73), Hx of [...] 09/05/2023 Assessment & Plan (07/18/2023 2:35 PM PLASTIC WORKER): No wheezes or rhonchi to suggest COPD exacerbation today. Cough likely related to chronic lung changes (we reviewed his CXR together). Continue symptomatic treatment and Trelegy. Lesion of nose 06/13/2023 09/05/2023 Assessment & Plan (06/13/2023 11:13 AM PLASTIC WORKER): Mupirocin TID COPD exacerbation 05/27/2023 12/04/2023 Assessment & Plan (06/13/2023 11:12 AM PLASTIC WORKER): Resolved, doing wel Assessment & Plan (05/27/2023 11:05 AM PLASTIC WORKER): Doxy BID x 10d Prednisone 40mg x [...] at increased risk of infection but continuing power tool repairer antibiotics at this point is likely to cause more harm that benefit. I asked them both to monitor closely for any signs or symptoms of worsening infection and to reach out to ID with any concerns. - Follow up with thoracic surgery as scheduled. He reports he will also be following with a frame repairer. - We discussed that his exercise tolerance [...] work Assessment & Plan (07/31/2022 2:16 PM PLASTIC WORKER): Continue salt tabs. He has labs scheduled for Friday. Assessment & Plan (07/18/2022 11:11 AM PLASTIC WORKER): Na 124 upon admission. Likely 2/2 SIADH in the setting of infection - 130 this morning - renal consulted and has signed off - increase salt tabs back to TID - see last renal note for salt tab taper - Total fluid restriction < 1.5L Leukocytosis 07/11/2022 10/01/2022 Assessment & Plan (07/12/2022 7:49 AM PLASTIC WORKER): R/T empyema - see empyema section Anemia 07/11/2022 06/06/2023 Assessment & Plan (07/11/2022 10:35 AM PLASTIC WORKER): Anemia of chronic disease. - no s/s of bleeding - transfuse to keep hgb >7 - T&S active History of right-sided empyema 07/10/2022 12/04/2023 Assessment & Plan (07/18/2023 2:34 PM PLASTIC WORKER): Follows with pulmonary. Assessment & Plan (10/01/2022 12:56 PM CDT): Cardiopulmonary Rehab referral to [facility] We discussed nutrient dense foods Assessment & Plan (09/04/2022 2:00 PM CDT): S/p OR on 07/11/22 for right thoracotomy, bronchcosopy and decortication ([facility]) with cultures growing Staph hominis. Lobectomy was thought to be too high risk at that time, and 2 chest tubes were placed at the OSH and removed on 07/16/22. Of note, patient was recently admitted to [facility] from 08/19 to 08/22 due to concerns [...] 07/11/22 for right thoracotomy, bronchcosopy and decortication ([facility]) with cultures growing Staph hominis. Lobectomy was thought to be too high risk at that time, and 2 chest tubes were placed at the OSH and removed on 07/16/22. Of note, patient was recently admitted to [facility] from 08/19 to 08/22 due to concerns [...] concerns Assessment & Plan (07/31/2022 2:17 PM PLASTIC WORKER): Follow up with ID and thoracics. Has CT scheduled tomorrow. Assessment & Plan (07/18/2022 11:11 AM PLASTIC WORKER): empyema superimposed on a chronic and treated [...] Antibiotic Free, Intramuscular 04/05/2024 Influenza, Unspecified 03/24/2023 [employer] ([employer]) SARS-CoV-2 Vaccination 10/11/2020 Pfizer SARS-CoV-2 Monovalent [...] often do you attend chur ch or moravian services? Never 09/04/2022 Do you belong to any clubs o r organizations such as hindu groups, unions, fraternal or athletic groups, or [...] on file Legal Sex Male 4:05 PM PLASTIC WORKER Gender Identity Not on file Sexual Orientation [...] Scheduled Procedures Name Priority Associated Diagnoses Date/Ti tn ESOPHAGOGASTRODUODENOSCOPY Open Access Iron deficiency anemia, unspecified iron deficiency anemia type Colon cancer screening COLONOSCOPY Open Access Iron deficiency anemia, unspecified iron deficiency anemia type Colon cancer screening Goals Goal Patient Goal Type Associated Problems Recent Progress Patient-Stated? Author CCM Chronic Pain Care Plan Chronic Care Management Kat Singh, SYEDA Note: Problem: Chronic Pain Goals: 1. Minimize further functional decline 2. Maximize quality of life 3. Control pain Strategies: - Activity/exercise program recommendation - Conservative stepwise pain medicine strategy with multi-disciplinary approach - Recommend healthy lifestyle strategies and compensatory methods as needed Medical Devices Implanted Type Area Printer Repair Technician Device Identifier Shelf Expiration Date Model / Serial / Lot Hardware Back Procedures Procedure Name Priority Date/Time Associated Diagnosis Comments POCT HEMOGLOBIN A1C Routine 10/06/2024 10:37 AM CDT Type 2 diabetes mellitus without complication, without long-term current use of insulin (HCC) PULMONARY FUNCTION TEST (PFT) Routine
--- OUTSIDE RECORDS SUMMARY | 2024-10-11 15:03 | XMS_ITS ---
Author Organization [facility] Virtual Care Address [address] [place] [id number] Phone Care Team Providers Care Cardiovascular Tech Name Role Phone MaliagennaGretchen rivera MD Unavailable Henrique Dean MD Primary Care Provider [phone] George Murillo MD Unavailable [phone] Ivan Hemphill MD Unavailable Jhon Teresa DPM Unavailable [phone] Active Problems Patient Care Coordination No te Formatting of this note migh t be different from the original. Kat Becerra NP 07/31/2022 14:52 This is a 61-year-old presenting to the clinic today for follow-up after right chest tube placement by you on 07/11/2022 for an empyema. He presented back to [facility] on 07/25/2022-07/29/2022 with worsening shortness [...] 1 Assessment & Plan (06/11/2024 12:26 PM TEST ENG): Continue p.r.n. hydrocodone. Assessment & Plan (03/12/2024 [...] 11/21/2023 Assessment & Plan (07/23/2024 10:58 AM TEST ENG): Had EGD/colo with no cause of bleeding. [...] 07/18/2023 Assessment & Plan (07/18/2023 2:36 PM TEST ENG): Can stop PPI and switch to H2 dianna. Pulmonary emphysema 06/06/2023 Assessment & Plan (06/11/2024 12:26 PM TEST ENG): Doing better now. Cough is improved Seizure disorder 11/20/2022 Assessment & Plan (10/06/2024 11:03 AM CDT): No seizure activity Continue keppra Assessment & Plan (12/08/2023 3:23 PM CDT): None recently doing well on Keppra Assessment & Plan (07/18/2023 2:34 PM TEST ENG): Continue Keppra. Assessment & Plan (06/13/2023 11:13 AM TEST ENG): Doing well on Keppra 750mg BID Assessment [...] 07/31/2022 Assessment & Plan (07/23/2024 10:57 AM TEST ENG): Due for lipid check. Continue atorvastatin. Assessment & Plan (03/23/2024 9:29 AM CDT): At goal on current therapy. Assessment & Plan (11/22/2023 9:42 PM CDT): At goal on current therapy. Assessment & Plan (07/18/2023 2:33 PM TEST ENG): Check labs. Continue statin. Assessment & Plan (03/17/2023 2:15 PM CDT): At goal on current therapy. Assessment & Plan (09/04/2022 2:06 PM CDT): -Continue home atorvastatin 40 mg q day Assessment & Plan (09/03/2022 8:41 AM CDT): --Continue home atorvastatin 40 mg q day Assessment & Plan (07/31/2022 2:15 PM TEST ENG): At goal on current therapy. Type 2 diabetes mellitus 07/12/2022 Assessment & Plan (10/06/2024 11:01 AM CDT): A1c 6.8% Continue Farxiga 10mg and metformin XR 500mg daily Labs UTD Assessment & Plan (07/23/2024 11:09 AM TEST ENG): A1c at goal on current therapy. Will repeat microalbumin since he is now on Farxiga. He will schedule an eye exam. Encourage good foot care given his neuropathy. Assessment & Plan (06/11/2024 12:26 PM TEST ENG): A1c at target Assessment & Plan (03/23/2024 [...] metformin. Assessment & Plan (07/18/2023 2:33 PM TEST ENG): A1c near goal. Continue metformin 500 mg [...] insulin Assessment & Plan (07/31/2022 2:16 PM TEST ENG): Hypoglycemic recently requiring him to stop his glimepiride completely. Will give him Irena CGM today and see if we can get this covered long-term. For now, remain off glimepiride and take metformin as needed. Recommend yearly eye exams. Assessment & Plan (07/12/2022 7:58 AM TEST ENG): - ADA diet - SSI EZEQUIEL (obstructive [...] BID Assessment & Plan (07/23/2024 10:57 AM TEST ENG): At goal on current therapy. Assessment & [...] therapy. Assessment & Plan (07/18/2023 2:32 PM TEST ENG): At goal on current therapy. Assessment & Plan (03/17/2023 2:14 PM CDT): At goal on current therapy. Assessment & Plan (09/04/2022 2:05 PM CDT): - Continue home medications: amlodipine 5 mg BID, Coreg 25 mg BID, clonidine 0.2 mg BID. Losartan 100 and HCTZ 25 substituted for telmisartan-HCTZ 80-25 (non- formulary at [facility]) Assessment & Plan (09/03/2022 8:42 AM CDT): --Continue home medications: amlodipine 5 mg BID, Coreg 25 mg BID, clonidine 0.2 mg BID. Losartan 100 and HCTZ 25 substituted for telmisartan-HCTZ 80-25 (non- formulary at [facility]) Assessment & Plan (07/31/2022 2:15 PM TEST ENG): At goal on current therapy. Assessment & Plan (07/14/2022 10:02 AM TEST ENG): - continue home coreg, clonidine - restart home norvasc Malignant neoplasm of upper lobe of right lung ( CMS/HCC) 08/14/2015 Assessment & Plan (07/18/2023 2:34 PM TEST ENG): Per oncology. Assessment & Plan (09/04/2022 2:00 PM CDT): Stage IIIA (T3N1M0) SCC of the RUL who was previously treated with concurrent chemoradiation (w/ carboplatin / paclitaxel) followed by adjuvant carboplatin / pac[facility] 11[id number]. Follows with Dr. Gretchen Waldron. He has [...] carboplatin / paclitaxel in 11/2015 [facility] # [id number]. Follows with Dr. Gretchen Waldron. He has completed 5 years of active surveillance and is currently managed with yearly low-dose CT. 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 Squamous cell carcinoma of lung 08/07/2015 Assessment [...] 10/06/2024 Assessment & Plan (07/23/2024 11:10 AM TEST ENG): Clinically improved after antibiotics. Will repeat CXR [...] Payne is a 63 M PMHx of SLTA10C COPD (PFTs 11/2023, FEV1 73), Hx of [...] 09/05/2023 Assessment & Plan (07/18/2023 2:35 PM TEST ENG): No wheezes or rhonchi to suggest COPD exacerbation today. Cough likely related to chronic lung changes (we reviewed his CXR together). Continue symptomatic treatment and Trelegy. Lesion of nose 06/13/2023 09/05/2023 Assessment & Plan (06/13/2023 11:13 AM TEST ENG): Mupirocin TID COPD exacerbation 05/27/2023 12/04/2023 Assessment & Plan (06/13/2023 11:12 AM TEST ENG): Resolved, doing wel Assessment & Plan (05/27/2023 11:05 AM TEST ENG): Doxy BID x 10d Prednisone 40mg x [...] at increased risk of infection but continuing termite inspector antibiotics at this point is likely to cause more harm that benefit. I asked them both to monitor closely for any signs or symptoms of worsening infection and to reach out to ID with any concerns. - Follow up with thoracic surgery as scheduled. He reports he will also be following with a digital proofing and platemaker. - We discussed that his exercise tolerance [...] work Assessment & Plan (07/31/2022 2:16 PM TEST ENG): Continue salt tabs. He has labs scheduled for Friday. Assessment & Plan (07/18/2022 11:11 AM TEST ENG): Na 124 upon admission. Likely 2/2 SIADH in the setting of infection - 130 this morning - renal consulted and has signed off - increase salt tabs back to TID - see last renal note for salt tab taper - Total fluid restriction < 1.5L Leukocytosis 07/11/2022 10/01/2022 Assessment & Plan (07/12/2022 7:49 AM TEST ENG): R/T empyema - see empyema section Anemia 07/11/2022 06/06/2023 Assessment & Plan (07/11/2022 10:35 AM TEST ENG): Anemia of chronic disease. - no s/s of bleeding - transfuse to keep hgb >7 - T&S active History of right-sided empyema 07/10/2022 12/04/2023 Assessment & Plan (07/18/2023 2:34 PM TEST ENG): Follows with pulmonary. Assessment & Plan (10/01/2022 12:56 PM CDT): Cardiopulmonary Rehab referral to [facility] We discussed nutrient dense foods Assessment & Plan (09/04/2022 2:00 PM CDT): S/p OR on 07/11/22 for right thoracotomy, bronchcosopy and decortication ([facility]) with cultures growing Staph hominis. Lobectomy was thought to be too high risk at that time, and 2 chest tubes were placed at the OSH and removed on 07/16/22. Of note, patient was recently admitted to [facility] from 08/19 to 08/22 due to concerns [...] 07/11/22 for right thoracotomy, bronchcosopy and decortication ([facility]) with cultures growing Staph hominis. Lobectomy was thought to be too high risk at that time, and 2 chest tubes were placed at the OSH and removed on 07/16/22. Of note, patient was recently admitted to [facility] from 08/19 to 08/22 due to concerns [...] concerns Assessment & Plan (07/31/2022 2:17 PM TEST ENG): Follow up with ID and thoracics. Has CT scheduled tomorrow. Assessment & Plan (07/18/2022 11:11 AM TEST ENG): empyema superimposed on a chronic and treated [...]
--- OUTSIDE RECORDS SUMMARY | 2024-10-11 15:40 | XMS_ITS ---
Author Organization [facility] Virtual Care Address [address] [place] [phone] Phone Care Team Providers Care Tube Handler Name Role Phone MaliagennaGretchen rivera MD Unavailable Henrique Dean MD Primary Care Provider [phone] George Murillo MD Unavailable [phone] Ivan Hemphill MD Unavailable [phone] Jhon Teresa DPM Unavailable [phone] Active Problems Patient Care Coordination No te Formatting of this note migh t be different from the original. Kat Becerra NP 07/31/2022 14:52 This is a 61-year-old presenting to the clinic today for follow-up after right chest tube placement by you on 07/11/2022 for an empyema. He presented back to [facility] on 07/25/2022-07/29/2022 with worsening shortness of [...] 1 Assessment & Plan (06/11/2024 12:26 PM FACTORY EXPERT): Continue p.r.n. hydrocodone. Assessment & Plan (03/12/2024 [...] 11/21/2023 Assessment & Plan (07/23/2024 10:58 AM FACTORY EXPERT): Had EGD/colo with no cause of bleeding. [...] 07/18/2023 Assessment & Plan (07/18/2023 2:36 PM FACTORY EXPERT): Can stop PPI and switch to H2 dianna. Pulmonary emphysema 06/06/2023 Assessment & Plan (06/11/2024 12:26 PM FACTORY EXPERT): Doing better now. Cough is improved Seizure disorder 11/20/2022 Assessment & Plan (10/06/2024 11:03 AM CDT): No seizure activity Continue keppra Assessment & Plan (12/08/2023 3:23 PM CDT): None recently doing well on Keppra Assessment & Plan (07/18/2023 2:34 PM FACTORY EXPERT): Continue Keppra. Assessment & Plan (06/13/2023 11:13 AM FACTORY EXPERT): Doing well on Keppra 750mg BID Assessment [...] 07/31/2022 Assessment & Plan (07/23/2024 10:57 AM FACTORY EXPERT): Due for lipid check. Continue atorvastatin. Assessment & Plan (03/23/2024 9:29 AM CDT): At goal on current therapy. Assessment & Plan (11/22/2023 9:42 PM CDT): At goal on current therapy. Assessment & Plan (07/18/2023 2:33 PM FACTORY EXPERT): Check labs. Continue statin. Assessment & Plan (03/17/2023 2:15 PM CDT): At goal on current therapy. Assessment & Plan (09/04/2022 2:06 PM CDT): -Continue home atorvastatin 40 mg q day Assessment & Plan (09/03/2022 8:41 AM CDT): --Continue home atorvastatin 40 mg q day Assessment & Plan (07/31/2022 2:15 PM FACTORY EXPERT): At goal on current therapy. Type 2 diabetes mellitus 07/12/2022 Assessment & Plan (10/06/2024 11:01 AM CDT): A1c 6.8% Continue Farxiga 10mg and metformin XR 500mg daily Labs UTD Assessment & Plan (07/23/2024 11:09 AM FACTORY EXPERT): A1c at goal on current therapy. Will repeat microalbumin since he is now on Farxiga. He will schedule an eye exam. Encourage good foot care given his neuropathy. Assessment & Plan (06/11/2024 12:26 PM FACTORY EXPERT): A1c at target Assessment & Plan (03/23/2024 [...] metformin. Assessment & Plan (07/18/2023 2:33 PM FACTORY EXPERT): A1c near goal. Continue metformin 500 mg [...] insulin Assessment & Plan (07/31/2022 2:16 PM FACTORY EXPERT): Hypoglycemic recently requiring him to stop his glimepiride completely. Will give him Irena CGM today and see if we can get this covered long-term. For now, remain off glimepiride and take metformin as needed. Recommend yearly eye exams. Assessment & Plan (07/12/2022 7:58 AM FACTORY EXPERT): - ADA diet - SSI EZEQUIEL (obstructive [...] BID Assessment & Plan (07/23/2024 10:57 AM FACTORY EXPERT): At goal on current therapy. Assessment & [...] therapy. Assessment & Plan (07/18/2023 2:32 PM FACTORY EXPERT): At goal on current therapy. Assessment & Plan (03/17/2023 2:14 PM CDT): At goal on current therapy. Assessment & Plan (09/04/2022 2:05 PM CDT): - Continue home medications: amlodipine 5 mg BID, Coreg 25 mg BID, clonidine 0.2 mg BID. Losartan 100 and HCTZ 25 substituted for telmisartan-HCTZ 80-25 (non- formulary at [facility]) Assessment & Plan (09/03/2022 8:42 AM CDT): --Continue home medications: amlodipine 5 mg BID, Coreg 25 mg BID, clonidine 0.2 mg BID. Losartan 100 and HCTZ 25 substituted for telmisartan-HCTZ 80-25 (non- formulary at [facility]) Assessment & Plan (07/31/2022 2:15 PM FACTORY EXPERT): At goal on current therapy. Assessment & Plan (07/14/2022 10:02 AM FACTORY EXPERT): - continue home coreg, clonidine - restart home norvasc Malignant neoplasm of upper lobe of right lung ( CMS/HCC) 08/14/2015 Assessment & Plan (07/18/2023 2:34 PM FACTORY EXPERT): Per oncology. Assessment & Plan (09/04/2022 2:00 PM CDT): Stage IIIA (T3N1M0) SCC of the RUL who was previously treated with concurrent chemoradiation (w/ carboplatin / paclitaxel) followed by adjuvant carboplatin / paclitaxel in 11/2015 [id number]. Follows with Dr. Gretchen Waldron. He has [...] carboplatin / paclitaxel in 11/2015 [facility] # [id number]. Follows with Dr. Gretchen Waldron. He has completed 5 years of active surveillance and is currently managed with yearly low-dose CT. 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 Squamous cell carcinoma of lung 08/07/2015 Assessment [...] 10/06/2024 Assessment & Plan (07/23/2024 11:10 AM FACTORY EXPERT): Clinically improved after antibiotics. Will repeat CXR [...] Payne is a 63 M PMHx of [id number] COPD (PFTs 11/2023, FEV1 73), Hx of [...] 09/05/2023 Assessment & Plan (07/18/2023 2:35 PM FACTORY EXPERT): No wheezes or rhonchi to suggest COPD exacerbation today. Cough likely related to chronic lung changes (we reviewed his CXR together). Continue symptomatic treatment and Trelegy. Lesion of nose 06/13/2023 09/05/2023 Assessment & Plan (06/13/2023 11:13 AM FACTORY EXPERT): Mupirocin TID COPD exacerbation 05/27/2023 12/04/2023 Assessment & Plan (06/13/2023 11:12 AM FACTORY EXPERT): Resolved, doing wel Assessment & Plan (05/27/2023 11:05 AM FACTORY EXPERT): Doxy BID x 10d Prednisone 40mg x [...] at increased risk of infection but continuing oysterman antibiotics at this point is likely to cause more harm that benefit. I asked them both to monitor closely for any signs or symptoms of worsening infection and to reach out to ID with any concerns. - Follow up with thoracic surgery as scheduled. He reports he will also be following with a correction lieutenant. - We discussed that his exercise tolerance [...] work Assessment & Plan (07/31/2022 2:16 PM FACTORY EXPERT): Continue salt tabs. He has labs scheduled for Friday. Assessment & Plan (07/18/2022 11:11 AM FACTORY EXPERT): Na 124 upon admission. 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 - no s/s of bleeding - transfuse to keep hgb >7 - T&S active History of right-sided empyema 07/10/2022 12/04/2023 Assessment & Plan (07/18/2023 2:34 PM FACTORY EXPERT): Follows with pulmonary. Assessment & Plan (10/01/2022 12:56 PM CDT): Cardiopulmonary Rehab referral to [facility] We discussed nutrient dense foods Assessment & Plan (09/04/2022 2:00 PM CDT): S/p OR on 07/11/22 for right thoracotomy, bronchcosopy and decortication ([facility]) with cultures growing Staph hominis. Lobectomy was thought to be too high risk at that time, and 2 chest tubes were placed at the OSH and removed on 07/16/22. Of note, patient was recently admitted to [facility] from 08/19 to 08/22 due to concerns [...] 07/11/22 for right thoracotomy, bronchcosopy and decortication ([facility]) with cultures growing Staph hominis. Lobectomy was thought to be too high risk at that time, and 2 chest tubes were placed at the OSH and removed on 07/16/22. Of note, patient was recently admitted to [facility] from 08/19 to 08/22 due to concerns [...] concerns Assessment & Plan (07/31/2022 2:17 PM FACTORY EXPERT): Follow up with ID and thoracics. Has CT scheduled tomorrow. Assessment & Plan (07/18/2022 11:11 AM FACTORY EXPERT): empyema superimposed on a chronic and treated [...]
--- OUTSIDE RECORDS SUMMARY | 2024-10-11 15:40 | XMS_ITS | CONTINUITY OF CARE DOCUMENT ---
Author Name robertrobert Address Unknown Organization [facility] Address [address] [place] [address] Phone [phone] Care Team Providers Care Compliance Aide Name Role Phone Soledad KRISHNA, Ruben Bañuelos Unavailable [phone] RIYA BENNETT MD Unavailable RIYA BENNETT MD Unavailable [phone] INSURANCE PROVIDERS Payer name Policy type / Coverage type [employer] party ID UHC MEDICARE COMPLETE HMO Other [id number]
--- OUTSIDE RECORDS SUMMARY | 2024-10-11 15:40 | XMS_ITS | Encounter Summary ---
Author Organization [facility] Healthcare Address [address] [place] [address] Care Team Providers Care Shower Maid Name Role Phone Ivan Hemphill MD Primary Care Provider Gretchen Waldron MD Unavailable Henrique Dean MD Primary Care Provider George Murillo MD Unavailable [phone] Ivan Hemphill MD Unavailable Jhon Teresa DPM Unavailable [phone] Encounter Details Date Type Department Care Team (Late st Contact Info) Description 08/20/2022 Telephone [facility] Primary Care Medicine Clinic [address] [place] [address] Jaylin Gonzalez PSGT Social History [...] declined 08/22/2022 How often do you attend bahai or sabianist serv ices? Patient declined 08/22/2022 Do you belong to any clubs o r organizations such as bahai groups, unions, fraternal or athletic groups, or [...] place to sleep or slept in a care home (including now)? 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 Gender Identity Not on file Sexual Orientation [...] Scheduled Procedures Name Priority Associated Diagnoses Date/Ti ct ESOPHAGOGASTRODUODENOSCOPY Open Access Iron deficiency anemia, unspecified [...] documented as of this encounter Care Teams Shower Maid Relationship Specialty Start Date End Date Ivan Hemphill MD PCP - General Endocrinology Diabetes & Metabolism 07/31/22 09/16/22 Henrique Dean MD [address] [facility] [address] [address] [place] [address] PCP - General Internal Medicine 09/17/22 Gretchen Waldron MD [address] [facility] [place] [address] Medical Oncologist/Stationary Engineer Medical Oncology 08/06/22 George Murillo MD [address] [facility] [address] [place] [address] Beauty Consultant Pulmonary Disease 06/06/23 Ivan Hemphill MD [address] [facility] [address] [place] [address] Consulting Physician Endocrinology Diabetes & Metabolism 06/06/23 Jhon Teresa, DPM [address] [facility] [place] [address] Consulting Physician Podiatry 06/06/23 documented as of this encounter
--- OUTSIDE RECORDS SUMMARY | 2024-10-11 15:40 | XMS_ITS | Clinical Summary ---
Author Organization [facility] Address [address] [place] [address] Care Team Providers Care Supervisor Speech Name Role Phone Unavailable Primary Care Provider Unavailabl e Source Comments [facility] [employer] Payment,non-owned Affiliates and Associated Physician Practices is amultiple site organization consisting of ambulatory clinics and hospital sitesin [place], [place], [place] and [place]. This disclosure is being madepursuant to the Care Everywhere program and may not contain all information available regarding this patient. 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
--- OUTSIDE RECORDS SUMMARY | 2024-10-11 15:40 | XMS_ITS | Clinical Summary ---
Author Organization [facility] Address [address] [place] [phone] Phone Care Team Providers Care Tennis Ball Cover Cementer Name Role Phone KandikeerthiGretchen MD Unavailable Henrique Dean MD Primary Care Provider George Murillo MD Unavailable [phone] Ivan Hemphill MD Unavailable Jhon Teresa DPM Unavailable [phone] Allergies No known active allergies Medications omeprazole (PriLOSEC) 20 mg capsule daily. Active mfjajamz-odp-LJ-ly copen-lutein 0.4 mg-300 mcg- 250 mcg tablet [...] for an empyema. He presented back to [facility] on 07/25/2022-07/29/2022 with worsening shortness of [...] of spinal fusion at multiple levels Continue [place] PRN Dr. Gamble # given to schedule for f/u Chronic midline low back pain without sciatica 1 Assessment & Plan (06/11/2024 12:26 PM BAGGAGEMASTER): Continue p.r.n. hydrocodone. Assessment & Plan (03/12/2024 [...] 11/21/2023 Assessment & Plan (07/23/2024 10:58 AM BAGGAGEMASTER): Had EGD/colo with no cause of bleeding. [...] 07/18/2023 Assessment & Plan (07/18/2023 2:36 PM BAGGAGEMASTER): Can stop PPI and switch to H2 dianna. Pulmonary emphysema 06/06/2023 Assessment & Plan (06/11/2024 12:26 PM BAGGAGEMASTER): Doing better now. Cough is improved Seizure disorder 11/20/2022 Assessment & Plan (10/06/2024 11:03 AM CDT): No seizure activity Continue keppra Assessment & Plan (12/08/2023 3:23 PM CDT): None recently doing well on Keppra Assessment & Plan (07/18/2023 2:34 PM BAGGAGEMASTER): Continue Keppra. Assessment & Plan (06/13/2023 11:13 AM BAGGAGEMASTER): Doing well on Keppra 750mg BID Assessment [...] 07/31/2022 Assessment & Plan (07/23/2024 10:57 AM BAGGAGEMASTER): Due for lipid check. Continue atorvastatin. Assessment & Plan (03/23/2024 9:29 AM CDT): At goal on current therapy. Assessment & Plan (11/22/2023 9:42 PM CDT): At goal on current therapy. Assessment & Plan (07/18/2023 2:33 PM BAGGAGEMASTER): Check labs. Continue statin. Assessment & Plan (03/17/2023 2:15 PM CDT): At goal on current therapy. Assessment & Plan (09/04/2022 2:06 PM CDT): -Continue home atorvastatin 40 mg q day Assessment & Plan (09/03/2022 8:41 AM CDT): --Continue home atorvastatin 40 mg q day Assessment & Plan (07/31/2022 2:15 PM BAGGAGEMASTER): At goal on current therapy. Type 2 diabetes mellitus 07/12/2022 Assessment & Plan (10/06/2024 11:01 AM CDT): A1c 6.8% Continue Farxiga 10mg and metformin XR 500mg daily Labs UTD Assessment & Plan (07/23/2024 11:09 AM BAGGAGEMASTER): A1c at goal on current therapy. Will repeat microalbumin since he is now on Farxiga. He will schedule an eye exam. Encourage good foot care given his neuropathy. Assessment & Plan (06/11/2024 12:26 PM BAGGAGEMASTER): A1c at target Assessment & Plan (03/23/2024 [...] metformin. Assessment & Plan (07/18/2023 2:33 PM BAGGAGEMASTER): A1c near goal. Continue metformin 500 mg [...] insulin Assessment & Plan (07/31/2022 2:16 PM BAGGAGEMASTER): Hypoglycemic recently requiring him to stop his glimepiride completely. Will give him Irena CGM today and see if we can get this covered long-term. For now, remain off glimepiride and take metformin as needed. Recommend yearly eye exams. Assessment & Plan (07/12/2022 7:58 AM BAGGAGEMASTER): - ADA diet - SSI EZEQUIEL (obstructive [...] BID Assessment & Plan (07/23/2024 10:57 AM BAGGAGEMASTER): At goal on current therapy. Assessment & [...] therapy. Assessment & Plan (07/18/2023 2:32 PM BAGGAGEMASTER): At goal on current therapy. Assessment & Plan (03/17/2023 2:14 PM CDT): At goal on current therapy. Assessment & Plan (09/04/2022 2:05 PM CDT): - Continue home medications: amlodipine 5 mg BID, Coreg 25 mg BID, clonidine 0.2 mg BID. Losartan 100 and HCTZ 25 substituted for telmisartan-HCTZ 80-25 (non- formulary at [facility]) Assessment & Plan (09/03/2022 8:42 AM CDT): --Continue home medications: amlodipine 5 mg BID, Coreg 25 mg BID, clonidine 0.2 mg BID. Losartan 100 and HCTZ 25 substituted for telmisartan-HCTZ 80-25 (non- formulary at [facility]) Assessment & Plan (07/31/2022 2:15 PM BAGGAGEMASTER): At goal on current therapy. Assessment & Plan (07/14/2022 10:02 AM BAGGAGEMASTER): - continue home coreg, clonidine - restart home norvasc Malignant neoplasm of upper lobe of right lung ( CMS/HCC) 08/14/2015 Assessment & Plan (07/18/2023 2:34 PM BAGGAGEMASTER): Per oncology. Assessment & Plan (09/04/2022 2:00 PM CDT): Stage IIIA (T3N1M0) SCC of the RUL who was previously treated with concurrent chemoradiation (w/ carboplatin / paclitaxel) followed by adjuvant carboplatin / paclitaxel in 11/2015 [id number]. Follows with Dr. Gretchen Waldron. He has [...] carboplatin / paclitaxel in 11/2015 on [facility] # [id number]. Follows with Dr. Gretchen Waldron. He has completed 5 years of active surveillance and is currently managed with yearly low-dose CT. Last seen in Onc Clinic in November 2021 Assessment & Plan (07/31/2022 1:52 PM BAGGAGEMASTER): S/p BASKET BRAIDER. Squamous cell carcinoma of lung 08/07/2015 Assessment & Plan (12/08/2023 3:23 PM CDT): Stable followed by Pulmonary and Oncology Resolved Problems Problem Noted Date Diagnosed Date Resolved Date Shortness of breath 08/24/2024 10/07/19 25 Pneumonia of left lower lobe due to infectious organism 07/23/2024 10/06/2024 Assessment & Plan (07/23/2024 11:10 AM BAGGAGEMASTER): Clinically improved after antibiotics. Will repeat CXR [...] Payne is a 63 M PMHx of [id number] COPD (PFTs 11/2023, FEV1 73), Hx of [...] 09/05/2023 Assessment & Plan (07/18/2023 2:35 PM BAGGAGEMASTER): No wheezes or rhonchi to suggest COPD exacerbation today. Cough likely related to chronic lung changes (we reviewed his CXR together). Continue symptomatic treatment and Trelegy. Lesion of nose 06/13/2023 09/05/2023 Assessment & Plan (06/13/2023 11:13 AM BAGGAGEMASTER): Mupirocin TID COPD exacerbation 05/27/2023 12/04/2023 Assessment & Plan (06/13/2023 11:12 AM BAGGAGEMASTER): Resolved, doing wel Assessment & Plan (05/27/2023 11:05 AM BAGGAGEMASTER): Doxy BID x 10d Prednisone 40mg x [...] at increased risk of infection but continuing manager terminal antibiotics at this point is likely to cause more harm that benefit. I asked them both to monitor closely for any signs or symptoms of worsening infection and to reach out to ID with any concerns. - Follow up with thoracic surgery as scheduled. He reports he will also be following with a evaporator helper. - We discussed that his exercise tolerance [...] work Assessment & Plan (07/31/2022 2:16 PM BAGGAGEMASTER): Continue salt tabs. He has labs scheduled for Friday. Assessment & Plan (07/18/2022 11:11 AM BAGGAGEMASTER): Na 124 upon admission. Likely 2/2 SIADH in the setting of infection - 130 this morning - renal consulted and has signed off - increase salt tabs back to TID - see last renal note for salt tab taper - Total fluid restriction < 1.5L Leukocytosis 07/11/2022 10/01/2022 Assessment & Plan (07/12/2022 7:49 AM BAGGAGEMASTER): R/T empyema - see empyema section Anemia 07/11/2022 06/06/2023 Assessment & Plan (07/11/2022 10:35 AM BAGGAGEMASTER): Anemia of chronic disease. - no s/s of bleeding - transfuse to keep hgb >7 - T&S active History of right-sided empyema 07/10/2022 12/04/2023 Assessment & Plan (07/18/2023 2:34 PM BAGGAGEMASTER): Follows with pulmonary. Assessment & Plan (10/01/2022 12:56 PM CDT): Cardiopulmonary Rehab referral to [facility] We discussed nutrient dense foods Assessment & Plan (09/04/2022 2:00 PM CDT): S/p OR on 07/11/22 for right thoracotomy, bronchcosopy and decortication ([facility]) with cultures growing Staph hominis. Lobectomy was thought to be too high risk at that time, and 2 chest tubes were placed at the OSH and removed on 07/16/22. Of note, patient was recently admitted to [facility] from 08/19 to 08/22 due to concerns [...] 07/11/22 for right thoracotomy, bronchcosopy and decortication ([facility]) with cultures growing Staph hominis. Lobectomy was thought to be too high risk at that time, and 2 chest tubes were placed at the OSH and removed on 07/16/22. Of note, patient was recently admitted to [facility] from 08/19 to 08/22 due to concerns [...] concerns Assessment & Plan (07/31/2022 2:17 PM BAGGAGEMASTER): Follow up with ID and thoracics. Has CT scheduled tomorrow. Assessment & Plan (07/18/2022 11:11 AM BAGGAGEMASTER): empyema superimposed on a chronic and treated [...] [facility] [address] [place] [address] Priya Long NP Type 2 diabetes mellitus without complication, without long-term current use of insulin (HCC) (Primary Dx); Benign essential hypertension; Seizure disorder (HCC); Chronic pain syndrome 08/30/2024 Telephone [facility] ([facility]) - [facility] ENT [address] 11th [place] [address] [place] [phone] Matilde Collins, 08/24/2024 8:00 AM CDT Office Visit [facility] Pulmonary [address] [place] [address] Justin Pederson MD Chronic obstructive pulmonary disease, unspecified COPD type (HCC) (Primary Dx); Chronic sinusitis, unspecified location; Collapse of right lung; Malignant neoplasm of upper lobe of right lung (CMS/HCC) (HCC) 08/24/2024 7:11 AM CDT - 08/24/2024 11:59 PM CDT Hospital Encounter [facility] PFT Lab [address], [address] [place] [address] Shortness of breath Discharge Disposition: Discharge to home or self care 08/12/2024 Telephone [facility] [address] [place], [place] [address] [place] [address] Henrique Dean MD Cough 07/23/2024 2:00 PM BAGGAGEMASTER Lab [facility] [address] [place] [phone] Other hyperlipidemia; Type 2 diabetes mellitus without complication, without long-term current use of insulin ([facility]) 07/23/2024 11:16 AM BAGGAGEMASTER - 07/23/2024 11:59 PM BAGGAGEMASTER Hospital Encounter [facility] ([facility] [address] [place] [address] Ivan Hemphill MD Pneumonia of left lower lobe due to infectious organism Discharge Disposition: Discharge to home or self care 07/23/2024 10:45 AM BAGGAGEMASTER Office Visit [facility] [address] [place] [phone] Ivan Hemphill MD Pneumonia of left lower lobe due to infectious organism (Primary Dx); Type 2 diabetes mellitus without complication, without long-term current use of insulin ([facility]); Iron deficiency anemia, unspecified iron deficiency anemia type; Other hyperlipidemia; Benign essential hypertension 07/23/2024 Results Follow-Up [facility] [address] [place] [phone] Ivan Hemphill MD Lipid panel, Albumin Creatinine Ratio, Urine, XR Chest Pa Lateral 2 Views from Last 3 Months Immunizations Immunization Administration Dates Next Due Influenza, Quadrivalent, Samanta l Culture-based MDCK, Preservative Free, Antibiotic Free, Intramuscular 03/01/2021,06/11/2018 Influenza, Quadrivalent, Spl it, Preservative Free, Intramuscular 03/11/2022 Influenza, Trivalent, Cell C ulture-based MDCK, Preservative Free, Antibiotic Free, Intramuscular 04/05/2024 Influenza, Unspecified 03/24/2023 [employer] SARS-CoV-2 Vaccination 10/11/2020 Pfizer SARS-CoV-2 Monovalent [...] often do you attend chur ch or sikh services? Never 09/04/2022 Do you belong to any clubs o r organizations such as shinto groups, unions, fraternal or athletic groups, or [...] place to sleep or slept in a usp (including now)? No 09/04/2022 Personal Safety Answer Date Recorded Have you ever been in or are you currently in a harmful physical or emotional relationship or is someone making you feel afraid or unsafe? Denies 04/02/2024 Sex and Gender Information Value Date Recorded Sex Assigned at Not on file Legal Sex Male 4:05 PM BAGGAGEMASTER Gender Identity Not on file Sexual Orientation Not on file Obstetrics History Last Filed Vital Signs Vital Sign Reading Time Taken Comments Bloo [id number]|2024-10-11 15:40:00|2024-10-11 15:39:00|XMS_ITS|YONG GIANNA|External Medical Summaries|[id number]|" Referral Summary Created on: October 11, 2024 Marco Antonio Payne : 1960 Sex: Male Author Organization [facility] Address [address] [place] [phone] Phone Care Team Providers Care Tennis Ball Cover Cementer Name Role Phone Gretchen Waldron MD Unavailable Henrique Dean MD Primary Care Provider [phone] George Murillo MD Unavailable [phone] Ivan Hemphill MD Unavailable [phone] Jhon Teresa DPM Unavailable [phone] Encounters Date Type Department Care Team Description 10/06/2024 10:45 AM CDT Office Visit [facility] [address] [place] [phone] Priya Long, ELIEZER Type 2 diabetes mellitus without complication, without long-term current use of insulin (HCC) (Primary Dx); Benign essential hypertension; Seizure disorder (HCC); Chronic pain syndrome 08/30/[address] [facility] [address] [facility] 11th [place] [address] [place] [phone] Collins, Matilde, 08/24/2024 7:11 AM CDT - 08/24/2024 11:59 PM CDT Hospital Encounter [facility] PFT Lab [address], [address] [place] [address] Shortness of breath Discharge Disposition: Discharge to home or self care 08/24/2024 8:00 AM CDT Office Visit [facility] Pulmonary [address] [place] [address] Justin Pederson MD Chronic obstructive pulmonary disease, unspecified COPD type (HCC) (Primary Dx); Chronic sinusitis, unspecified location; Collapse of right lung; Malignant neoplasm of upper lobe of right lung (CMS/HCC) (HCC) 08/12/2024 Telephone [facility] [address] [facility] [facility] [address] [place] [phone] Henrique Dean MD Cough 07/23/2024 Results Follow-Up [facility] [address] [place] [phone] Ivan Hemphill MD Lipid panel, Albumin Creatinine Ratio, Urine, XR Chest Pa Lateral 2 Views 07/23/2024 2:00 PM BAGGAGEMASTER Lab [facility] [address] [place] [phone] Other hyperlipidemia; Type 2 diabetes mellitus without complication, without long-term current use of insulin (HCC) 07/23/2024 11:16 AM BAGGAGEMASTER - 07/23/2024 11:59 PM BAGGAGEMASTER Hospital Encounter [facility] [address] [place] [address] Ivan Hemphill MD Pneumonia of left lower lobe due to infectious organism Discharge Disposition: Discharge to home or self care 07/23/2024 10:45 AM BAGGAGEMASTER Office Visit [facility] [address] [facility] [place] [address] Ivan Hemphill MD Pneumonia of left lower lobe due to infectious organism (Primary Dx); Type 2 diabetes mellitus without complication, without long-term current use of insulin ([facility]); Iron deficiency anemia, unspecified iron deficiency anemia type; Other hyperlipidemia; Benign essential hypertension from Last 3 Months Allergies No known active allergies Medications omeprazole (PriLOSEC) 20 mg capsule daily. Active ggpwlewq-osb-GP-ly copen-lutein 0.4 mg-300 mcg- 250 mcg tablet [...] for an empyema. He presented back to [facility] on 07/25/2022-07/29/2022 with worsening shortness of [...] 1 Assessment & Plan (06/11/2024 12:26 PM BAGGAGEMASTER): Continue p.r.n. hydrocodone. Assessment & Plan (03/12/2024 [...] 11/21/2023 Assessment & Plan (07/23/2024 10:58 AM BAGGAGEMASTER): Had EGD/colo with no cause of bleeding. [...] 07/18/2023 Assessment & Plan (07/18/2023 2:36 PM BAGGAGEMASTER): Can stop PPI and switch to H2 dianna. Pulmonary emphysema 06/06/2023 Assessment & Plan (06/11/2024 12:26 PM BAGGAGEMASTER): Doing better now. Cough is improved Seizure disorder 11/20/2022 Assessment & Plan (10/06/2024 11:03 AM CDT): No seizure activity Continue keppra Assessment & Plan (12/08/2023 3:23 PM CDT): None recently doing well on Keppra Assessment & Plan (07/18/2023 2:34 PM BAGGAGEMASTER): Continue Keppra. Assessment & Plan (06/13/2023 11:13 AM BAGGAGEMASTER): Doing well on Keppra 750mg BID Assessment [...] 07/31/2022 Assessment & Plan (07/23/2024 10:57 AM BAGGAGEMASTER): Due for lipid check. Continue atorvastatin. Assessment & Plan (03/23/2024 9:29 AM CDT): At goal on current therapy. Assessment & Plan (11/22/2023 9:42 PM CDT): At goal on current therapy. Assessment & Plan (07/18/2023 2:33 PM BAGGAGEMASTER): Check labs. Continue statin. Assessment & Plan (03/17/2023 2:15 PM CDT): At goal on current therapy. Assessment & Plan (09/04/2022 2:06 PM CDT): -Continue home atorvastatin 40 mg q day Assessment & Plan (09/03/2022 8:41 AM CDT): --Continue home atorvastatin 40 mg q day Assessment & Plan (07/31/2022 2:15 PM BAGGAGEMASTER): At goal on current therapy. Type 2 diabetes mellitus 07/12/2022 Assessment & Plan (10/06/2024 11:01 AM CDT): A1c 6.8% Continue Farxiga 10mg and metformin XR 500mg daily Labs UTD Assessment & Plan (07/23/2024 11:09 AM BAGGAGEMASTER): A1c at goal on current therapy. Will repeat microalbumin since he is now on Farxiga. He will schedule an eye exam. Encourage good foot care given his neuropathy. Assessment & Plan (06/11/2024 12:26 PM BAGGAGEMASTER): A1c at target Assessment & Plan (03/23/2024 [...] metformin. Assessment & Plan (07/18/2023 2:33 PM BAGGAGEMASTER): A1c near goal. Continue metformin 500 mg [...] insulin Assessment & Plan (07/31/2022 2:16 PM BAGGAGEMASTER): Hypoglycemic recently requiring him to stop his glimepiride completely. Will give him Irena CGM today and see if we can get this covered long-term. For now, remain off glimepiride and take metformin as needed. Recommend yearly eye exams. Assessment & Plan (07/12/2022 7:58 AM BAGGAGEMASTER): - ADA diet - SSI EZEQUIEL (obstructive [...] BID Assessment & Plan (07/23/2024 10:57 AM BAGGAGEMASTER): At goal on current therapy. Assessment & [...] therapy. Assessment & Plan (07/18/2023 2:32 PM BAGGAGEMASTER): At goal on current therapy. Assessment & Plan (03/17/2023 2:14 PM CDT): At goal on current therapy. Assessment & Plan (09/04/2022 2:05 PM CDT): - Continue home medications: amlodipine 5 mg BID, Coreg 25 mg BID, clonidine 0.2 mg BID. Losartan 100 and HCTZ 25 substituted for telmisartan-HCTZ 80-25 (non- formulary at [facility]) Assessment & Plan (09/03/2022 8:42 AM CDT): --Continue home medications: amlodipine 5 mg BID, Coreg 25 mg BID, clonidine 0.2 mg BID. Losartan 100 and HCTZ 25 substituted for telmisartan-HCTZ 80-25 (non- formulary at [facility]) Assessment & Plan (07/31/2022 2:15 PM BAGGAGEMASTER): At goal on current therapy. Assessment & Plan (07/14/2022 10:02 AM BAGGAGEMASTER): - continue home coreg, clonidine - restart home norvasc Malignant neoplasm of upper lobe of right lung ( CMS/HCC) 08/14/2015 Assessment & Plan (07/18/2023 2:34 PM BAGGAGEMASTER): Per oncology. Assessment & Plan (09/04/2022 2:00 PM CDT): Stage IIIA (T3N1M0) SCC of the RUL who was previously treated with concurrent chemoradiation (w/ carboplatin / paclitaxel) followed by adjuvant carboplatin / paclitaxel in 11/2015 on protocol [facility] # [id number]. Follows with Dr. Gretchen Waldron. He has [...] paclitaxel in 11/2015 on protocol [facility] # [id number]. Follows with Dr. Gretchen Waldron. He has completed 5 years of active surveillance and is currently managed with yearly low-dose CT. Last seen in Onc Clinic in November 2021 Assessment & Plan (07/31/2022 1:52 PM BAGGAGEMASTER): S/p BASKET BRAIDER. Squamous cell carcinoma of lung 08/07/2015 Assessment & Plan (12/08/2023 3:23 PM CDT): Stable followed by Pulmonary and Oncology Resolved Problems Problem Noted Date Diagnosed Date Resolved Date Shortness of breath 08/24/2024 10/07/19 25 Pneumonia of left lower lobe due to infectious organism 07/23/2024 10/06/2024 Assessment & Plan (07/23/2024 11:10 AM BAGGAGEMASTER): Clinically improved after antibiotics. Will repeat CXR [...] Payne is a 63 M PMHx of [id number] COPD (PFTs 11/2023, FEV1 73), Hx of [...] 09/05/2023 Assessment & Plan (07/18/2023 2:35 PM BAGGAGEMASTER): No wheezes or rhonchi to suggest COPD exacerbation today. Cough likely related to chronic lung changes (we reviewed his CXR together). Continue symptomatic treatment and Trelegy. Lesion of nose 06/13/2023 09/05/2023 Assessment & Plan (06/13/2023 11:13 AM BAGGAGEMASTER): Mupirocin TID COPD exacerbation 05/27/2023 12/04/2023 Assessment & Plan (06/13/2023 11:12 AM BAGGAGEMASTER): Resolved, doing wel Assessment & Plan (05/27/2023 11:05 AM BAGGAGEMASTER): Doxy BID x 10d Prednisone 40mg x [...] at increased risk of infection but continuing manager terminal antibiotics at this point is likely to cause more harm that benefit. I asked them both to monitor closely for any signs or symptoms of worsening infection and to reach out to ID with any concerns. - Follow up with thoracic surgery as scheduled. He reports he will also be following with a evaporator helper. - We discussed that his exercise tolerance [...] work Assessment & Plan (07/31/2022 2:16 PM BAGGAGEMASTER): Continue salt tabs. He has labs scheduled for Friday. Assessment & Plan (07/18/2022 11:11 AM BAGGAGEMASTER): Na 124 upon admission. Likely 2/2 SIADH in the setting of infection - 130 this morning - renal consulted and has signed off - increase salt tabs back to TID - see last renal note for salt tab taper - Total fluid restriction < 1.5L Leukocytosis 07/11/2022 10/01/2022 Assessment & Plan (07/12/2022 7:49 AM BAGGAGEMASTER): R/T empyema - see empyema section Anemia 07/11/2022 06/06/2023 Assessment & Plan (07/11/2022 10:35 AM BAGGAGEMASTER): Anemia of chronic disease. - no s/s of bleeding - transfuse to keep hgb >7 - T&S active History of right-sided empyema 07/10/2022 12/04/2023 Assessment & Plan (07/18/2023 2:34 PM BAGGAGEMASTER): Follows with pulmonary. Assessment & Plan (10/01/2022 12:56 PM CDT): Cardiopulmonary Rehab referral to [facility] We discussed nutrient dense foods Assessment & Plan (09/04/2022 2:00 PM CDT): S/p OR on 07/11/22 for right thoracotomy, bronchcosopy and decortication ([facility]) with cultures growing Staph hominis. Lobectomy was thought to be too high risk at that time, and 2 chest tubes were placed at the OSH and removed on 07/16/22. Of note, patient was recently admitted to [facility] from 08/19 to 08/22 due to concerns [...] 07/11/22 for right thoracotomy, bronchcosopy and decortication ([facility]) with cultures growing Staph hominis. Lobectomy was thought to be too high risk at that time, and 2 chest tubes were placed at the OSH and removed on 07/16/22. Of note, patient was recently admitted to [facility] from 08/19 to 08/22 due to concerns [...] concerns Assessment & Plan (07/31/2022 2:17 PM BAGGAGEMASTER): Follow up with ID and thoracics. Has CT scheduled tomorrow. Assessment & Plan (07/18/2022 11:11 AM BAGGAGEMASTER): empyema superimposed on a chronic and treated [...] Antibiotic Free, Intramuscular 04/05/2024 Influenza, Unspecified 03/24/2023 [employer] SARS-CoV-2 Vaccination 10/11/2020 Pfizer SARS-CoV-2 Monovalent [...] often do you attend chur ch or sikh services? Never 09/04/2022 Do you belong to any clubs o r organizations such as shinto groups, unions, fraternal or athletic groups, or [...] place to sleep or slept in a usp (including now)? No 09/04/2022 Personal Safety Answer Date Recorded Have you ever been in or are you currently in a harmful physical or emotional relationship or is someone making you feel afraid or unsafe? Denies 04/02/2024 Sex and Gender Information Value Date Recorded Sex Assigned at Not on file Legal Sex Male 4:05 PM BAGGAGEMASTER Gender Identity Not on file Sexual Orientation [...] Scheduled Procedures Name Priority Associated Diagnoses Date/Ti ny ESOPHAGOGASTRODUODENOSCOPY Open Access Iron deficiency anemia, unspecified [...] as needed Medical Devices Implanted Type Area Inspector Crystal Device Identifier Shelf Expiration Date Model / Serial / Lot Hardware Back Procedures Procedure Name Priority Date/Time Associated Diagnosis Comments POCT HEMOGLOBIN A1C Routine 10/06/2024 10:37 AM CDT Type 2 diabetes mellitus without complication, without long-term current use of insulin (HCC) PULMONARY FUNCTION TEST (PFT) Routine
--- OUTSIDE RECORDS SUMMARY | 2024-10-11 15:40 | XMS_ITS | Encounter Summary ---
Author Organization [facility] Address [address] [place] [address] Phone Care Team Providers Care Leather Worker Name Role Phone Gretchen Waldron MD Unavailable [phone] Henrique Dean MD Primary Care Provider [phone] George Murillo MD Unavailable [phone] Ivan Hemphill MD Unavailable [phone] Jhon Teresa DPM Unavailable [phone] Encounter Details Date Type Department Care Team [...] often do you attend chur ch or lutheran services? Never 09/04/2022 Do you belong to any clubs o r organizations such as pentecostalism groups, unions, fraternal or athletic groups, or [...] place to sleep or slept in a custodial (including now)? No 09/04/2022 Personal Safety Answer Date Recorded Have you ever been in or are you currently in a harmful physical or emotional relationship or is someone making you feel afraid or unsafe? 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 Gender Identity Not on file Sexual [...] documented as of this encounter Care Teams Leather Worker Relationship Specialty Start Date End Date Henrique Dean MD [address] [facility] [address] [place] [address] PCP - General Internal Medicine 09/17/22 Gretchen Waldron MD [address] [facility] [address] [place] [address] Medical Oncologist/Picker Packer Medical Oncology 08/06/22 George Murillo MD [address] [facility] [address] [place] [address] Music Promoter Pulmonary Disease 06/06/23 Ivan Hemphill MD [address] [facility] [address] [place] [address] Consulting Physician Endocrinology Diabetes & Metabolism 06/06/23 Jhon Teresa, GRAY [address] [facility] [place] [address] Consulting Physician Podiatry 06/06/23 documented as of this encounter
--- OUTSIDE RECORDS SUMMARY | 2024-10-11 15:40 | XMS_ITS | Encounter Summary ---
Author Organization [facility] Address [address] [place] [address] Phone Care Team Providers Care Clinical Ob Name Role Phone Gretchen Waldron MD Unavailable Henrique Dean MD Primary Care Provider [phone] George Murillo MD Unavailable [phone] Ivan Hemphill MD Unavailable [phone] Jhon Teresa DPM Unavailable [phone] Encounter Details Date Type Department Care Team [...] any clubs o r organizations such as mandaeism groups, unions, fraternal or athletic groups, or [...] slept in a senior living (including now)? No 09/04/2022 Personal Safety Answer Date Recorded Have you ever been in or are you currently in a harmful physical or emotional relationship or is someone making you feel afraid or unsafe? 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 Gender Identity Not on file [...] documented as of this encounter Care Teams Clinical Ob Relationship Specialty Start Date End Date Henrique Dean MD [address] [facility] [address] [place] [address] PCP - General Internal Medicine 09/17/22 Gretchen Waldron MD [address] [facility] [address] [place] [address] Medical Oncologist/Spinning Supervisor Medical Oncology 08/06/22 George Murillo MD [address] [facility] [address] [place] [address] City Treasurer Pulmonary Disease 06/06/23 Ivan Hemphill MD [address] [facility] [address] [place], [place] [address] Consulting Physician Endocrinology Diabetes & Metabolism 06/06/23 Jhon Teresa, GRAY [address] [facility] [place] [address] Consulting Physician Podiatry 06/06/23 documented as of this encounter
--- NOTE | 2024-10-11 15:53 | WPDANESEPPF ---
Anes - Initial Pre Proc Eval Procedure: Operation Date: 10/11/24 16:00 Proposed Procedures p Esophagogastroduodenoscopy - Malcolm Hilario MD Date/Time: 10/11/24 15:53 Surgeon: Malcolm Hilario MD Pre Op Diagnosis: Unable to swallow-poss food bolus Patient Data Age: 63 Gender: M Height: 1.75 m Weight: 77 kg Last Vital Signs Temp 36.3 C L 10/11/24 11:51 Pulse 78 10/11/24 14:43 Resp 17 10/11/24 14:43 BP 145/88 H 10/11/24 14:43 Pulse Ox 97 10/11/24 14:43 Allergies Allergy/AdvReac Type Severity Reaction Status Date / Time No Known Allergies Allergy Verified 10/11/24 15:53 Home Medications Medication Instructions Recorded Confirmed Type albuterol sulfate 90 mcg/actuation 2 puff inhalation Q4H PRN 07/04/22 07/04/22 History aerosol inhaler Shortness Of Breath amlodipine 5 mg tablet 5 mg PO BID 07/04/22 07/04/22 History aspirin 81 mg tablet 81 mg PO DAILY 07/04/22 07/04/22 History atorvastatin 40 mg tablet 40 mg PO DAILY 07/04/22 07/04/22 History azithromycin 250 mg tablet 250 mg PO DAILY 07/04/22 07/04/22 History benzonatate 100 mg capsule 100 mg PO Q8H PRN Cough 07/04/22 07/04/22 History budesonide 160 mcg-glycopyr 9 1 inh inhalation BID 07/04/22 07/04/22 History mcg-formot 4.8 mcg/actuation HFA inhaler (Breztri Aerosphere) carvedilol 25 mg tablet 25 mg PO BID 07/04/22 07/04/22 History clonidine HCl 0.2 mg tablet 0.2 mg PO BID 07/04/22 07/04/22 History esomeprazole magnesium 20 mg 20 mg PO DAILY 07/04/22 07/04/22 History tablet,delayed release glimepiride 4 mg tablet 4 mg PO DAILY 07/04/22 07/04/22 History guaifenesin 1,200 mg tablet, 1,200 mg PO BID 07/04/22 07/04/22 History extended release 12 hr (Mucinex) metformin 1,000 mg tablet 1,000 mg PO BID 07/04/22 07/04/22 History deksqbisrogk-gqutzwnv-lrtxjp tablet 1 tablet PO DAILY 07/04/22 07/04/22 History prednisone 10 mg tablet 10 mg PO TID 07/04/22 07/04/22 History telmisartan 80 1 tablet PO DAILY 07/04/22 07/04/22 History mg-hydrochlorothiazide 25 mg tablet Laboratory Tests 10/11/24 13:11 WBC 7.0 K/mm3 (4.5-10.0) RBC 5.55 M/mm3 (4.6-6.20) Hgb 16.8 D g/dL (14.0-18.0) Hct 49.8 % (42.0-52.0) MCV 89.7 fl (80-100) MCH 30.3 pg (26-34) MCHC 33.7 g/dl (32-36) RDW 13.4 % (11.5-14.5) Plt Count 270 k/mm3 (150-375) MPV 9.7 fl (7.4-10.4) Immature Gran % (Auto) 0.3 % (0-0.5) Neut % (Auto) 70.1 % (45.5-73.1) Lymph % (Auto) 15.8 L % (18.3-44.2) Greene % (Auto) 8.3 % (2.6-8.5) Eos % (Auto) 4.4 % (0-4.4) Baso % (Auto) 1.1 % (0.2-1.2) Lymph # (Auto) 1.11 K/mm3 (0.9-3.2) Greene # (Auto) 0.6 K/mm3 (0.1-0.6) Eos # (Auto) 0.3 K/mm3 (0-0.3) Baso # (Auto) 0.1 K/mm3 (0.0-0.1) Abs Immat Gran (auto) 0.02 K/mm3 (0.00-0.031) Absolute Neuts (auto) 4.9 K/mm3 (1.3-6.7) Absolute Nucleated RBC 0.000 K/mm3 (0.0-0.012) Nucleated RBC % 0.0 % (0.0-0.2) Sodium 137 mmol/L (137-145) Potassium 3.5 mmol/L (3.4-5.0) Chloride 98 mmol/L (98-107) Carbon Dioxide 28 mmol/L (22-30) Anion Gap 11 mmol/L (4-12) BUN 15 mg/dL (9-20) Creatinine 0.94 mg/dL (0.7-1.3) Estim Creat Clear Calc 70 ml/min Estimated GFR > 60 (59 - ) Glucose 105 mg/dL (65-110) Calcium 9.5 mg/dL (8.4-10.2) Total Bilirubin 1.3 mg/dL (0.2-1.3) AST 28 U/L (17-59) ALT 19 U/L (6-50) Alkaline Phosphatase 110 U/L (38-126) Total Protein 9.0 H g/dL (6.3-8.2) Albumin 4.9 g/dL (3.5-5.1) Patient hx anesthesia problems: none Family hx anesthesia problems: none Results Review: All pre-operative results and documents have been reviewed as part of the pre-operative evaluation. [facility] Past Medical History Medical History Lung cancer Family History Family History Mother Diabetes mellitus Sibling ETOH abuse Father High cholesterol Hypertension Social History Social History Smoking packs per day: 1.5 Smoking cigarettes per day: 30.0 Years smoked: 20 Smoking pack-years: 30.00 Smoking status: Former smoker Tobacco type: cigarettes Alcohol intake: never Drinks per week: 9 Substance use: former Lack of Transportation: No Lack of Food: Never True Current Housing: I Have Housing Concerned About Future Housing: No Difficulty Paying Gas/Electric Bills: No Difficulty Paying for Meds: No Currently Unemployed: No Education: High School Diploma/GED Difficulty w/ Childcare or Family Care: No Spiritual care concerns: No Anes - Eval Final PreProcedure Day of Procedure 10/11/24 15:53 Patient weight: normal Heart: regular rate and rhythm Lungs: decreased breath sounds Airway: Mallampati scale class 1 Neurological: alert and oriented Last oral intake: >/= 8 hours ASA classification: IV Emergent: yes Anesthetic plan: proceed Anesthesia type and monitoring: general ETT and standard monitoring Results Review: All pre-operative results and documents have been reviewed as part of the pre-operative evaluation. Informed Consent: The patient's anesthetic plan and its attendant risks and benefits were discussed with the patient/family/POA. Questions were solicited and answers provided to the satisfaction of the patient/family/POA.
[2024-10-11] MEDS: LACTATED RINGERS 1,000 ML 150 ML IV CONT (15:56)
--- OUTSIDE RECORDS SUMMARY | 2024-10-11 16:09 | XMS_ITS | Clinical Summary ---
Author Organization [facility] Address [address] [place] [address] Care Team Providers Care Tile Decorator Name Role Phone Unavailable Primary Care Provider Unavailabl e Source Comments [facility],non-owned Affiliates and Associated Physician Practices is amultiple site organization consisting of ambulatory clinics and hospital sitesin [place], [place], [place] and [place]. This disclosure is being madepursuant to the Care Everywhere program and may not contain all information available regarding this patient. 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
--- OUTSIDE RECORDS SUMMARY | 2024-10-11 16:09 | XMS_ITS | Referral Summary ---
Author Organization [facility] Virtual Care Address [address] [place] [address] Phone Care Team Providers Care Manager Grant Name Role Phone Kandikeerthi Gretchen Packer MD Unavailable Henrique Dean MD Primary Care Provider George Murillo MD Unavailable [phone] Ivan Hemphill MD Unavailable [phone] Riya Teresa DPM Unavailable [phone] Encounters Date Type Department Care Team Description 10/11/2024 Orders Only [facility] [address] [place] [address] [address] [place] [address] Henrique Dean MD 10/06/2024 10:45 AM CDT Office Visit [facility] [address] [place] [address] [address] [place] [address] Priya Long NP Type 2 diabetes mellitus without complication, without long-term current use of insulin (HCC) (Primary Dx); Benign essential hypertension; Seizure disorder (HCC); Chronic pain syndrome 08/30/2024 Telephone [facility] [address] [facility] 11th [place] [address] [place] [address] Matilde Collins MS 08/24/2024 7:11 AM CDT - 08/24/2024 11:59 PM CDT Hospital Encounter [facility] PFT Lab [address] [facility] Floor 1, [address] [place] [address] Shortness of breath Discharge Disposition: Discharge to home or self care 08/24/2024 8:00 AM CDT Office Visit [facility] Pulmonary [address] [facility] Floor 5 [place] [id number] Justin Pederson MD Chronic obstructive pulmonary disease, unspecified COPD type (HCC) (Primary Dx); Chronic sinusitis, unspecified location; Collapse of right lung; Malignant neoplasm of upper lobe of right lung (CMS/HCC) (HCC) 08/12/2024 Telephone [facility] [address] [place] [address] Henrique Dean MD Cough 07/23/2024 Results Follow-Up [facility] [address] [place] [address] Ivan Hemphill MD Lipid panel, Albumin Creatinine Ratio, Urine, XR Chest Pa Lateral 2 Views 07/23/2024 2:00 PM SURVEY ASSOCIATE Lab [facility] ([facility]) [address] [place] [phone] Other hyperlipidemia; Type 2 diabetes mellitus without complication, without long-term current use of insulin ([facility]) 07/23/2024 11:16 AM SURVEY ASSOCIATE - 07/23/2024 11:59 PM SURVEY ASSOCIATE Hospital Encounter [facility] ([facility]) [address] [place] [address] Ivan Hemphill MD Pneumonia of left lower lobe due to infectious organism Discharge Disposition: Discharge to home or self care 07/23/2024 10:45 AM SURVEY ASSOCIATE Office Visit [facility] [address] [place], [place] [address] [place] [address] Ivan Hemphill MD Pneumonia of left lower lobe due to infectious organism (Primary Dx); Type 2 diabetes mellitus without complication, without long-term current use of insulin (HCC); Iron deficiency anemia, unspecified iron deficiency anemia type; Other hyperlipidemia; Benign essential hypertension from Last 3 Months Allergies No known active allergies Medications omeprazole (PriLOSEC) 20 mg capsule daily. Active rzrjxgbw-yym-BN-ly copen-lutein 0.4 mg-300 mcg- 250 mcg tablet 1 tablet 020 Active ALPRAZolam (XANAX) 0.25 mg tablet Take 1 tablet (0.25 mg total) by mouth 3 (three) times a day as needed for anxiety 30 tablet 1 Active levETIRAcetam (KEPPRA) 750 mg tablet Take one tablet by mouth twice daily 60 tablet 11 Active telmisartan-hydroc hlorothiazid (MICARDIS HCT) 80-25 mg [...] tablet by mouth twice daily 60 tablet 025 Active fluticasone-umecli din-vilanter (Trelegy Ellipta) 100-62.5-25 mcg inhaler INHALE 1 PUFF BY MOUTH DAILY 60 each 3 025 Active atorvastatin (LIPITOR) 40 mg tablet Take 1 tablet by mouth daily 30 tablet 025 Active albuterol HFA (PROVENTIL HFA,VENTOLIN HFA,PROAIR [...] for an empyema. He presented back to [facility] on 07/25/2022-07/29/2022 with worsening shortness of breath and cough. He underwent a CT PE chest which was negative for PE, but was concerning for worsening pneumonia. At time of hospitalization, there were no surgical options that you were able to provide. He was initially referred to us by Dr. Riya Casillas for malignant neoplasm of the upper [...] 1 Assessment & Plan (06/11/2024 12:26 PM SURVEY ASSOCIATE): Continue p.r.n. hydrocodone. Assessment & Plan (03/12/2024 [...] 11/21/2023 Assessment & Plan (07/23/2024 10:58 AM SURVEY ASSOCIATE): Had EGD/colo with no cause of bleeding. [...] 07/18/2023 Assessment & Plan (07/18/2023 2:36 PM SURVEY ASSOCIATE): Can stop PPI and switch to H2 dianna. Pulmonary emphysema 06/06/2023 Assessment & Plan (06/11/2024 12:26 PM SURVEY ASSOCIATE): Doing better now. Cough is improved Seizure disorder 11/20/2022 Assessment & Plan (10/06/2024 11:03 AM CDT): No seizure activity Continue keppra Assessment & Plan (12/08/2023 3:23 PM CDT): None recently doing well on Keppra Assessment & Plan (07/18/2023 2:34 PM SURVEY ASSOCIATE): Continue Keppra. Assessment & Plan (06/13/2023 11:13 AM SURVEY ASSOCIATE): Doing well on Keppra 750mg BID Assessment [...] 07/31/2022 Assessment & Plan (07/23/2024 10:57 AM SURVEY ASSOCIATE): Due for lipid check. Continue atorvastatin. Assessment & Plan (03/23/2024 9:29 AM CDT): At goal on current therapy. Assessment & Plan (11/22/2023 9:42 PM CDT): At goal on current therapy. Assessment & Plan (07/18/2023 2:33 PM SURVEY ASSOCIATE): Check labs. Continue statin. Assessment & Plan (03/17/2023 2:15 PM CDT): At goal on current therapy. Assessment & Plan (09/04/2022 2:06 PM CDT): -Continue home atorvastatin 40 mg q day Assessment & Plan (09/03/2022 8:41 AM CDT): --Continue home atorvastatin 40 mg q day Assessment & Plan (07/31/2022 2:15 PM SURVEY ASSOCIATE): At goal on current therapy. Type 2 diabetes mellitus 07/12/2022 Assessment & Plan (10/06/2024 11:01 AM CDT): A1c 6.8% Continue Farxiga 10mg and metformin XR 500mg daily Labs UTD Assessment & Plan (07/23/2024 11:09 AM SURVEY ASSOCIATE): A1c at goal on current therapy. Will repeat microalbumin since he is now on Farxiga. He will schedule an eye exam. Encourage good foot care given his neuropathy. Assessment & Plan (06/11/2024 12:26 PM SURVEY ASSOCIATE): A1c at target Assessment & Plan (03/23/2024 [...] metformin. Assessment & Plan (07/18/2023 2:33 PM SURVEY ASSOCIATE): A1c near goal. Continue metformin 500 mg [...] insulin Assessment & Plan (07/31/2022 2:16 PM SURVEY ASSOCIATE): Hypoglycemic recently requiring him to stop his glimepiride completely. Will give him Irena CGM today and see if we can get this covered long-term. For now, remain off glimepiride and take metformin as needed. Recommend yearly eye exams. Assessment & Plan (07/12/2022 7:58 AM SURVEY ASSOCIATE): - ADA diet - SSI EZEQUIEL (obstructive [...] BID Assessment & Plan (07/23/2024 10:57 AM SURVEY ASSOCIATE): At goal on current therapy. Assessment & [...] therapy. Assessment & Plan (07/18/2023 2:32 PM SURVEY ASSOCIATE): At goal on current therapy. Assessment & Plan (03/17/2023 2:14 PM CDT): At goal on current therapy. Assessment & Plan (09/04/2022 2:05 PM CDT): - Continue home medications: amlodipine 5 mg BID, Coreg 25 mg BID, clonidine 0.2 mg BID. Losartan 100 and HCTZ 25 substituted for telmisartan-HCTZ 80-25 (non- formulary at [facility]) Assessment & Plan (09/03/2022 8:42 AM CDT): --Continue home medications: amlodipine 5 mg BID, Coreg 25 mg BID, clonidine 0.2 mg BID. Losartan 100 and HCTZ 25 substituted for telmisartan-HCTZ 80-25 (non- formulary at [facility]) Assessment & Plan (07/31/2022 2:15 PM SURVEY ASSOCIATE): At goal on current therapy. Assessment & Plan (07/14/2022 10:02 AM SURVEY ASSOCIATE): - continue home coreg, clonidine - restart home norvasc Malignant neoplasm of upper lobe of right lung ( CMS/HCC) 08/14/2015 Assessment & Plan (07/18/2023 2:34 PM SURVEY ASSOCIATE): Per oncology. Assessment & Plan (09/04/2022 2:00 PM CDT): Stage IIIA (T3N1M0) SCC of the RUL who was previously treated with concurrent chemoradiation (w/ carboplatin / paclitaxel) followed by adjuvant carboplatin / paclitaxel in 11/2015 [id number]. Follows with Dr. Gretchen Waldron. He has [...] paclitaxel in 11/2015 on protocol [facility] # [id number]. Follows with Dr. Gretchen Waldron. He has completed 5 years of active surveillance and is currently managed with yearly low-dose CT. 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 Squamous cell carcinoma of lung 08/07/2015 Assessment & Plan (12/08/2023 3:23 PM CDT): Stable followed by Pulmonary and Oncology Resolved Problems Problem Noted Date Diagnosed Date Resolved Date Shortness of breath 08/24/2024 10/07/19 25 Pneumonia of left lower lobe due to infectious organism 07/23/2024 10/06/2024 Assessment & Plan (07/23/2024 11:10 AM SURVEY ASSOCIATE): Clinically improved after antibiotics. Will repeat CXR [...] Payne is a 63 M PMHx of MXCI35M COPD (PFTs 11/2023, FEV1 73), Hx of [...] 09/05/2023 Assessment & Plan (07/18/2023 2:35 PM SURVEY ASSOCIATE): No wheezes or rhonchi to suggest COPD exacerbation today. Cough likely related to chronic lung changes (we reviewed his CXR together). Continue symptomatic treatment and Trelegy. Lesion of nose 06/13/2023 09/05/2023 Assessment & Plan (06/13/2023 11:13 AM SURVEY ASSOCIATE): Mupirocin TID COPD exacerbation 05/27/2023 12/04/2023 Assessment & Plan (06/13/2023 11:12 AM SURVEY ASSOCIATE): Resolved, doing wel Assessment & Plan (05/27/2023 11:05 AM SURVEY ASSOCIATE): Doxy BID x 10d Prednisone 40mg x [...] he will also be following with a spearer. - We discussed that his exercise tolerance [...] work Assessment & Plan (07/31/2022 2:16 PM SURVEY ASSOCIATE): Continue salt tabs. He has labs scheduled for Friday. Assessment & Plan (07/18/2022 11:11 AM SURVEY ASSOCIATE): Na 124 upon admission. 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 - no s/s of bleeding - transfuse to keep hgb >7 - T&S active History of right-sided empyema 07/10/2022 12/04/2023 Assessment & Plan (07/18/2023 2:34 PM SURVEY ASSOCIATE): Follows with pulmonary. Assessment & Plan (10/01/2022 12:56 PM CDT): Cardiopulmonary Rehab referral to [facility] We discussed nutrient dense foods Assessment & Plan (09/04/2022 2:00 PM CDT): S/p OR on 07/11/22 for right thoracotomy, bronchcosopy and decortication ([facility]) with cultures growing Staph hominis. Lobectomy was thought to be too high risk at that time, and 2 chest tubes were placed at the OSH and removed on 07/16/22. Of note, patient was recently admitted to [facility] from 08/19 to 08/22 due to [...] 07/11/22 for right thoracotomy, bronchcosopy and decortication ([facility]) with cultures growing Staph hominis. Lobectomy was thought to be too high risk at that time, and 2 chest tubes were placed at the OSH and removed on 07/16/22. Of note, patient was recently admitted to [facility] from 08/19 to 08/22 due to [...] concerns Assessment & Plan (07/31/2022 2:17 PM SURVEY ASSOCIATE): Follow up with ID and thoracics. Has CT scheduled tomorrow. Assessment & Plan (07/18/2022 11:11 AM SURVEY ASSOCIATE): empyema superimposed on a chronic and treated [...] Antibiotic Free, Intramuscular 04/05/2024 Influenza, Unspecified 03/24/2023 [employer] ([employer]) SARS-CoV-2 Vaccination 10/11/2020 [employer] SARS-CoV-2 Monovalent Vaccination (12+ Yrs) PENA-READY TO [...] often do you attend chur ch or evangelical services? Never 09/04/2022 Do you belong to any clubs o r organizations such as voodoo groups, unions, fraternal or athletic groups, or [...] on file Legal Sex Male 4:05 PM SURVEY ASSOCIATE Gender Identity Not on file Sexual Orientation [...] Chronic Pain Care Plan Chronic Care Management No Kat Marion, RN Note: Problem: Chronic Pain Goals: 1. Minimize further functional decline 2. Maximize quality of life 3. Control pain Strategies: - Activity/exercise program recommendation - Conservative stepwise pain medicine strategy with multi-disciplinary approach - Recommend healthy lifestyle strategies and compensatory methods as needed Medical Devices Implanted Type Area Baseboard Heating Installer Device Identifier Shelf Expiration Date Model / Serial / Lot Hardware Back Procedures Procedure Name Priority Date/Time Associated Diagnosis Comments SCAN - LABS 10/11/2024 3:09 PM CDT [id number]|2024-10-11 12:00:00|2024-10-11 11:59:00|XMS_ITS|BKG DAEMON|External Medical Summaries|[id number]|" CONTINUITY OF CARE DOCUMENT Created on: October 11, 2024 Marco Antonio Payne : 1960 Sex: Male Author Name robert jones Address Unknown Organization [facility] Address [address] [place] [address] Phone [phone] Care Team Providers Care Manager Grant Name Role Phone Soledad KRISHNA, Ruben Bañuelos Unavailable [phone] RIYA CASILLAS MD Unavailable RIYA CASILLAS MD Unavailable INSURANCE PROVIDERS Payer name Policy type / Coverage type [place] red democrat ID UHC MEDICARE COMPLETE HMO Other [id number] "
--- OUTSIDE RECORDS SUMMARY | 2024-10-11 16:09 | XMS_ITS | Encounter Summary ---
Author Organization [facility] Address [address] [place] [address] Phone Care Team Providers Care Shift Stacker Name Role Phone Gretchen Waldron MD Unavailable Henrique Dean MD Primary Care Provider [phone] George Murillo MD Unavailable [phone] Ivan Hemphill MD Unavailable [phone] Jhon Teresa DPM Unavailable [phone] Encounter Details Date Type Department Care Team [...] often do you attend chur ch or quaker services? 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 [address] [place] [address] PCP - General Internal Medicine 09/17/22 Gretchen Waldron MD [address] [facility] [address] [place] [address] Medical Oncologist/Laboratory Technologist Medical Oncology 08/06/22 George Murillo MD [address] [facility] [address] [place] [address] Upholstery Cutter Pulmonary Disease 06/06/23 Ivan Hemphill MD [address] [facility] [address] [place], [place] [id number] Consulting Physician Endocrinology Diabetes & Metabolism 06/06/23 Jhon Teresa, GRAY [address] [facility] [facility], [address] [place] [address] Consulting Physician Podiatry 06/06/23 documented as of this encounter
--- OUTSIDE RECORDS SUMMARY | 2024-10-11 16:09 | XMS_ITS | Encounter Summary ---
Author Organization [facility] Address [address] [place] [address] Care Team Providers Care Thermodynamics Engineer Name Role Phone Ivan Hemphill MD Primary Care Provider Gretchen Waldron MD Unavailable Henrique Dean MD Primary Care Provider [phone] George Murillo MD Unavailable [phone] Ivan Hemphill MD Unavailable Jhon Teresa DPM Unavailable [phone] Encounter Details Date Type Department Care Team (Late st Contact Info) Description 08/20/2022 Telephone [facility] [address] [facility] [address] [place] [address] Jaylin Gonzalez PSGT Social History [...] declined 08/22/2022 How often do you attend mu-ism or holiness serv ices? Patient declined 08/22/2022 Do you belong to any clubs o r organizations such as mu-ism groups, unions, fraternal or athletic groups, or [...] place to sleep or slept in a penitentiary (including now)? Patient refused 08/22/2022 Sex and Gender Information Value Date Recorded Sex Assigned at Not on file Legal Sex Male 4:05 PM WINDER HAND Gender Identity Not on file Sexual Orientation [...] Scheduled Procedures Name Priority Associated Diagnoses Date/Ti ak ESOPHAGOGASTRODUODENOSCOPY Open Access Iron deficiency anemia, unspecified [...] documented as of this encounter Care Teams Thermodynamics Engineer Relationship Specialty Start Date End Date Ivan Hemphill MD PCP - General Endocrinology Diabetes & Metabolism 07/31/22 09/16/22 Henrique Dean MD [address] [facility] [address] [place] [address] PCP - General Internal Medicine 09/17/22 Gretchen Waldron MD [address] [facility] [address] [place] [address] Medical Oncologist/Drying Frame Operator Medical Oncology 08/06/22 George Murillo MD [address] [facility] [address] [place] [address] Rural Service Engineer Pulmonary Disease 06/06/23 Ivan Hemphill MD [address] [facility] [address] [place] [address] Consulting Physician Endocrinology Diabetes & Metabolism 06/06/23 Jhon Teresa, DPM [address], [address] [place] [address] Consulting Physician Podiatry 06/06/23 documented as of this encounter
--- OUTSIDE RECORDS SUMMARY | 2024-10-11 16:10 | XMS_ITS | Encounter Summary ---
Author Organization [facility] Address [address] [place] [address] Care Team Providers Care Retail Field Representative Name Role Phone Kandikeerthi Gretchen Packer MD Unavailable [phone] Henrique Dean MD Primary Care Provider [phone] George Murillo MD Unavailable [phone] Ivan Hemphill MD Unavailable Jhon Teresa DPM Unavailable Encounter Details Date Type Department Care Team (Late st Contact Info) Description 10/11/2024 Orders Only [facility] [address] [place] [address] Henrique Dean MD [address] [place] [address] Social History Tobacco Use Types Packs/Day Years [...] often do you attend chur ch or roman catholic services? Never 09/04/2022 Do you belong to any clubs o r organizations such as taoism groups, unions, fraternal or athletic groups, or [...] place to sleep or slept in a halfway (including now)? No 09/04/2022 Personal Safety Answer Date Recorded Have you ever been in or are you currently in a harmful physical or emotional relationship or is someone making you feel afraid or unsafe? Denies 04/02/2024 Sex and Gender Information Value Date Recorded Sex Assigned at Not on file Legal Sex Male 4:05 PM CUSTOMER ADVISOR Gender Identity Not on file Sexual Orientation Not on file documented as of this encounter Plan of Treatment Scheduled Procedures Name Priority Associated Diagnoses Date/Ti me ESOPHAGOGASTRODUODENOSCOPY Open Access Iron deficiency anemia, unspecified iron deficiency anemia type Colon cancer screening COLONOSCOPY Open Access Iron deficiency anemia, unspecified iron deficiency anemia type Colon cancer screening documented as of this encounter Goals Goal Patient Goal Type Associated Problems [...] lifestyle strategies and compensatory methods as needed documented as of this encounter Procedures Procedure Name Priority Date/Time Associated Diagnosis Comments SCAN - LABS 10/11/2024 3:09 PM CDT documented in this encounter Results * SCAN - LABS (10/11/2024 3:09 PM CDT) Henrique Dean MD Final Result documented in this encounter Visit Diagnoses Not on filedocumented in this encounter Care Teams Retail Field Representative Relationship Specialty Start Date End Date Henrique Dean MD [address] [facility] [address] [place] [address] PCP - General Internal Medicine 09/17/22 Gretchen Wadlron MD [address] [facility] [address] [place] [address] Medical Oncologist/Cloth Grader Medical Oncology 08/06/22 George Murillo MD [address] [facility] [address] [place] [address] Medical Record Librarians Teacher Pulmonary Disease 06/06/23 Ivan Hemphill MD [address] [facility] [address] [place] [address] Consulting Physician Endocrinology Diabetes & Metabolism 06/06/23 Jhon Teresa, DPM [address], [address] [place] [address] Consulting Physician Podiatry 06/06/23 documented as of this encounter
--- OUTSIDE RECORDS SUMMARY | 2024-10-11 16:10 | XMS_ITS | CONTINUITY OF CARE DOCUMENT ---
Author Name robertrobert Address Unknown Organization [facility] Address [address] [facility] [address] [place] [address] Phone [phone] Care Team Providers Care Call Or Contact Centre Coach Name Role Phone Soledad KRISHNA, Ruben Bañuelos Unavailable [phone] RIYA BENNETT MD Unavailable RIYA BENNETT MD Unavailable [phone] INSURANCE PROVIDERS Payer name Policy type / Coverage type [place] red democrat ID UHC MEDICARE COMPLETE HMO Other [id number]
--- OUTSIDE RECORDS SUMMARY | 2024-10-11 16:10 | XMS_ITS ---
Author Organization [facility] Virtual Care Address [address] [place] [id number] Phone Care Team Providers Care Middleware Architect Name Role Phone MaliagennaGretchen rivera MD Unavailable Henrique Dean MD Primary Care Provider [phone] George Murillo MD Unavailable [phone] Ivan Hemphill MD Unavailable Jhon Teresa DPM Unavailable [phone] Active Problems Patient Care Coordination No te Formatting of this note migh t be different from the original. Kat Becerra NP 07/31/2022 14:52 This is a 61-year-old presenting to the clinic today for follow-up after right chest tube placement by you on 07/11/2022 for an empyema. He presented back to [facility] on 07/25/2022-07/29/2022 with worsening shortness of [...] 1 Assessment & Plan (06/11/2024 12:26 PM INSERTING OPERATOR): Continue p.r.n. hydrocodone. Assessment & Plan (03/12/2024 [...] 11/21/2023 Assessment & Plan (07/23/2024 10:58 AM INSERTING OPERATOR): Had EGD/colo with no cause of bleeding. [...] 07/18/2023 Assessment & Plan (07/18/2023 2:36 PM INSERTING OPERATOR): Can stop PPI and switch to H2 dianna. Pulmonary emphysema 06/06/2023 Assessment & Plan (06/11/2024 12:26 PM INSERTING OPERATOR): Doing better now. Cough is improved Seizure disorder 11/20/2022 Assessment & Plan (10/06/2024 11:03 AM CDT): No seizure activity Continue keppra Assessment & Plan (12/08/2023 3:23 PM CDT): None recently doing well on Keppra Assessment & Plan (07/18/2023 2:34 PM INSERTING OPERATOR): Continue Keppra. Assessment & Plan (06/13/2023 11:13 AM INSERTING OPERATOR): Doing well on Keppra 750mg BID Assessment [...] 07/31/2022 Assessment & Plan (07/23/2024 10:57 AM INSERTING OPERATOR): Due for lipid check. Continue atorvastatin. Assessment & Plan (03/23/2024 9:29 AM CDT): At goal on current therapy. Assessment & Plan (11/22/2023 9:42 PM CDT): At goal on current therapy. Assessment & Plan (07/18/2023 2:33 PM INSERTING OPERATOR): Check labs. Continue statin. Assessment & Plan (03/17/2023 2:15 PM CDT): At goal on current therapy. Assessment & Plan (09/04/2022 2:06 PM CDT): -Continue home atorvastatin 40 mg q day Assessment & Plan (09/03/2022 8:41 AM CDT): --Continue home atorvastatin 40 mg q day Assessment & Plan (07/31/2022 2:15 PM INSERTING OPERATOR): At goal on current therapy. Type 2 diabetes mellitus 07/12/2022 Assessment & Plan (10/06/2024 11:01 AM CDT): A1c 6.8% Continue Farxiga 10mg and metformin XR 500mg daily Labs UTD Assessment & Plan (07/23/2024 11:09 AM INSERTING OPERATOR): A1c at goal on current therapy. Will repeat microalbumin since he is now on Farxiga. He will schedule an eye exam. Encourage good foot care given his neuropathy. Assessment & Plan (06/11/2024 12:26 PM INSERTING OPERATOR): A1c at target Assessment & Plan (03/23/2024 [...] metformin. Assessment & Plan (07/18/2023 2:33 PM INSERTING OPERATOR): A1c near goal. Continue metformin 500 mg [...] insulin Assessment & Plan (07/31/2022 2:16 PM INSERTING OPERATOR): Hypoglycemic recently requiring him to stop his glimepiride completely. Will give him Irena CGM today and see if we can get this covered long-term. For now, remain off glimepiride and take metformin as needed. Recommend yearly eye exams. Assessment & Plan (07/12/2022 7:58 AM INSERTING OPERATOR): - ADA diet - SSI EZEQUIEL (obstructive [...] BID Assessment & Plan (07/23/2024 10:57 AM INSERTING OPERATOR): At goal on current therapy. Assessment & [...] therapy. Assessment & Plan (07/18/2023 2:32 PM INSERTING OPERATOR): At goal on current therapy. Assessment & Plan (03/17/2023 2:14 PM CDT): At goal on current therapy. Assessment & Plan (09/04/2022 2:05 PM CDT): - Continue home medications: amlodipine 5 mg BID, Coreg 25 mg BID, clonidine 0.2 mg BID. Losartan 100 and HCTZ 25 substituted for telmisartan-HCTZ 80-25 (non- formulary at [facility]) Assessment & Plan (09/03/2022 8:42 AM CDT): --Continue home medications: amlodipine 5 mg BID, Coreg 25 mg BID, clonidine 0.2 mg BID. Losartan 100 and HCTZ 25 substituted for telmisartan-HCTZ 80-25 (non- formulary at [facility]) Assessment & Plan (07/31/2022 2:15 PM INSERTING OPERATOR): At goal on current therapy. Assessment & Plan (07/14/2022 10:02 AM INSERTING OPERATOR): - continue home coreg, clonidine - restart home norvasc Malignant neoplasm of upper lobe of right lung ( CMS/HCC) 08/14/2015 Assessment & Plan (07/18/2023 2:34 PM INSERTING OPERATOR): Per oncology. Assessment & Plan (09/04/2022 2:00 PM CDT): Stage IIIA (T3N1M0) SCC of the RUL who was previously treated with concurrent chemoradiation (w/ carboplatin / paclitaxel) followed by adjuvant carboplatin / paclitaxel in 11/2015 on protocol [facility] # [id number]. Follows with Dr. Gretchen Waldron. He has [...] carboplatin / paclitaxel in 11/2015 on protocol [facility] # [id number]. Follows with Dr. Gretchen Waldron. He has completed 5 years of active surveillance and is currently managed with yearly low-dose CT. Last seen in Onc Clinic in November 2021 Assessment & Plan (07/31/2022 1:52 PM INSERTING OPERATOR): S/p ACQUISITIONS EDITOR. Squamous cell carcinoma of lung 08/07/2015 Assessment [...] 10/06/2024 Assessment & Plan (07/23/2024 11:10 AM INSERTING OPERATOR): Clinically improved after antibiotics. Will repeat CXR [...] Payne is a 63 M PMHx of [id number] COPD (PFTs 11/2023, FEV1 73), Hx of [...] 09/05/2023 Assessment & Plan (07/18/2023 2:35 PM INSERTING OPERATOR): No wheezes or rhonchi to suggest COPD exacerbation today. Cough likely related to chronic lung changes (we reviewed his CXR together). Continue symptomatic treatment and Trelegy. Lesion of nose 06/13/2023 09/05/2023 Assessment & Plan (06/13/2023 11:13 AM INSERTING OPERATOR): Mupirocin TID COPD exacerbation 05/27/2023 12/04/2023 Assessment & Plan (06/13/2023 11:12 AM INSERTING OPERATOR): Resolved, doing wel Assessment & Plan (05/27/2023 11:05 AM INSERTING OPERATOR): Doxy BID x 10d Prednisone 40mg x [...] at increased risk of infection but continuing exterminator termite antibiotics at this point is likely to cause more harm that benefit. I asked them both to monitor closely for any signs or symptoms of worsening infection and to reach out to ID with any concerns. - Follow up with thoracic surgery as scheduled. He reports he will also be following with a divine healer. - We discussed that his exercise tolerance [...] work Assessment & Plan (07/31/2022 2:16 PM INSERTING OPERATOR): Continue salt tabs. He has labs scheduled for Friday. Assessment & Plan (07/18/2022 11:11 AM INSERTING OPERATOR): Na 124 upon admission. Likely 2/2 SIADH in the setting of infection - 130 this morning - renal consulted and has signed off - increase salt tabs back to TID - see last renal note for salt tab taper - Total fluid restriction < 1.5L Leukocytosis 07/11/2022 10/01/2022 Assessment & Plan (07/12/2022 7:49 AM INSERTING OPERATOR): R/T empyema - see empyema section Anemia 07/11/2022 06/06/2023 Assessment & Plan (07/11/2022 10:35 AM INSERTING OPERATOR): Anemia of chronic disease. - no s/s of bleeding - transfuse to keep hgb >7 - T&S active History of right-sided empyema 07/10/2022 12/04/2023 Assessment & Plan (07/18/2023 2:34 PM INSERTING OPERATOR): Follows with pulmonary. Assessment & Plan (10/01/2022 12:56 PM CDT): Cardiopulmonary Rehab referral to [facility] We discussed nutrient dense foods Assessment & Plan (09/04/2022 2:00 PM CDT): S/p OR on 07/11/22 for right thoracotomy, bronchcosopy and decortication ([facility]) with cultures growing Staph hominis. Lobectomy was thought to be too high risk at that time, and 2 chest tubes were placed at the OSH and removed on 07/16/22. Of note, patient was recently admitted to [facility] from 08/19 to 08/22 due to concerns [...] 07/11/22 for right thoracotomy, bronchcosopy and decortication ([facility]) with cultures growing Staph hominis. Lobectomy was thought to be too high risk at that time, and 2 chest tubes were placed at the OSH and removed on 07/16/22. Of note, patient was recently admitted to [facility] from 08/19 to 08/22 due to concerns [...] concerns Assessment & Plan (07/31/2022 2:17 PM INSERTING OPERATOR): Follow up with ID and thoracics. Has CT scheduled tomorrow. Assessment & Plan (07/18/2022 11:11 AM INSERTING OPERATOR): empyema superimposed on a chronic and treated [...]
[2024-10-11 17:03] LABS: Glucose Point of Care 82 mg/dl (65-105)
--- NOTE | 2024-10-14 20:23 | PM.IMHP ---
H&P: HPI History of Present Illness Date/Time: 10/14/24 20:23 (note correspondint to 10/11/2024) Chief Complaint: food impaction Narrative: Patient with a history of lung cancer, presented with 3 days of dysphagia after eating steak. Here for EGD Review of Systems Review of Systems: All systems reviewed & are unremarkable except as noted in HPI and below PMFSH Past Medical History Medical History Lung cancer Family History Family History Mother Diabetes mellitus Sibling ETOH abuse Father High cholesterol Hypertension Social History Social History Smoking packs per day: 1.5 Smoking cigarettes per day: 30.0 Years smoked: 20 Smoking pack-years: 30.00 Smoking status: Former smoker Tobacco type: cigarettes Alcohol intake: never Drinks per week: 9 Substance use: former Lack of Transportation: No Lack of Food: Never True Current Housing: I Have Housing Concerned About Future Housing: No Difficulty Paying Gas/Electric Bills: No Difficulty Paying for Meds: No Currently Unemployed: No Education: High School Diploma/GED Difficulty w/ Childcare or Family Care: No Spiritual care concerns: No Meds Home Medications and Allergies Home Medications Medication Instructions Recorded Confirmed Type albuterol sulfate 90 mcg/actuation 2 puff inhalation Q4H PRN 07/04/22 07/04/22 History aerosol inhaler Shortness Of Breath amlodipine 5 mg tablet 5 mg PO BID 07/04/22 07/04/22 History aspirin 81 mg tablet 81 mg PO DAILY 07/04/22 07/04/22 History atorvastatin 40 mg tablet 40 mg PO DAILY 07/04/22 07/04/22 History azithromycin 250 mg tablet 250 mg PO DAILY 07/04/22 07/04/22 History benzonatate 100 mg capsule 100 mg PO Q8H PRN Cough 07/04/22 07/04/22 History budesonide 160 mcg-glycopyr 9 1 inh inhalation BID 07/04/22 07/04/22 History mcg-formot 4.8 mcg/actuation HFA inhaler (Breztri Aerosphere) carvedilol 25 mg tablet 25 mg PO BID 07/04/22 07/04/22 History clonidine HCl 0.2 mg tablet 0.2 mg PO BID 07/04/22 07/04/22 History esomeprazole magnesium 20 mg 20 mg PO DAILY 07/04/22 07/04/22 History tablet,delayed release glimepiride 4 mg tablet 4 mg PO DAILY 07/04/22 07/04/22 History guaifenesin 1,200 mg tablet, 1,200 mg PO BID 07/04/22 07/04/22 History extended release 12 hr (Mucinex) metformin 1,000 mg tablet 1,000 mg PO BID 07/04/22 07/04/22 History olfxczsyhtyq-wxcntxsl-odaxln tablet 1 tablet PO DAILY 07/04/22 07/04/22 History prednisone 10 mg tablet 10 mg PO TID 07/04/22 07/04/22 History telmisartan 80 1 tablet PO DAILY 07/04/22 07/04/22 History mg-hydrochlorothiazide 25 mg tablet Allergies Allergy/AdvReac Type Severity Reaction Status Date / Time No Known Allergies Allergy Verified 10/11/24 15:53 Exam Const: General: cooperative and healthy appearing Resp: Effort & Inspection: normal respiratory effort and able to speak in complete sentences Auscultation: clear to auscultation bilaterally Cardio: Rate: regular rate Rhythm: regular rhythm GI: Inspection: normal to inspection GI Palp: No No hepatosplenomegaly present Auscultation: normal bowel sounds Rectal Exam: deferred Skin: General skin exam: normal color Psych: Appearance: grossly normal Mental Status: mental status grossly normal Assessment and Plan Assessment and plan (1) Dysphagia: Qualifiers: Dysphagia type: unspecified Qualified Code(s): R13.10 - Dysphagia, unspecified Code(s): R13.10 - Dysphagia, unspecified Status: Acute Assessment and Plan: Suspected food impaction, given his history of lung cancer with previous radiation. Will proceed with EGD
== END 2024-10-11 17:35 | disposition home or self-care (01) ==
LOC: ANHED 15:08 → ANHSURGERY 15:54 → ANHED 16:06 → ANHENDO 16:07
PROVIDERS: Emergency Provider Physician Assistant; PCP Internal Medicine; Visit Provider Internal Medicine Gastroenterology
PROC: 0DJ08ZZ Inspection of Upper Intestinal Tract, Via Natural or Artificial Opening Endoscopic (ICD-10-PCS; CPT 43235; principal; 2024-10-11 16:00)
DX: K22.2 Esophageal obstruction (principal); Z79.51 Long term (current) use of inhaled steroids; Z79.82 Long term (current) use of aspirin; Z79.84 Long term (current) use of oral hypoglycemic drugs; Z79.52 Long term (current) use of systemic steroids; Z85.118 Personal history of other malignant neoplasm of bronchus and lung; Z87.891 Personal history of nicotine dependence
CPT/HCPCS: 43235; 36415; 80053; 82948; 85025; 96374; 96375; 99285; J0330; J2003; J2405; J2704; J7120